=== PATIENT | female | born 1960 | race Caucasian/White ===

== ENCOUNTER 2020-03-26 16:20 | Emergency (ER) | payer OTHER, SELFPAY ==
[2020-03-26 17:08] VITALS: BP 146/86; PULSE 96; RESP 18; TEMP 37.1; O2SAT 98; BMI 31.1
--- NOTE | 2020-03-26 17:15 | XR_ITS ---
EXAMINATION: XR CHEST CLINICAL INFORMATION: Fever, cough COMPARISON: None TECHNIQUE: Frontal view of the chest was obtained. FINDINGS: Surgical clips overlie the lower right lung. Low lung volumes. No convincing evidence for an acute infiltrate. No failure. No effusion is seen. The mediastinal contours are within normal limits. XR/XR chest 1V IMPRESSION: Low lung volumes. No convincing evidence for an acute process
--- NOTE | 2020-03-26 17:34 | ED_ITS ---
HPI - General Adult General Chief complaint: General Medical Stated complaint: covid symptoms Time Seen by Provider: 03/26/20 17:15 Source: patient Mode of arrival: ambulatory Limitations: no limitations History of Present Illness HPI narrative: 59 y/o female presenting with cough, SOB, fatigue for the last 3 days. She lives with her who is an employee at [employer] [place] and positive for COVID-19. She states her SOB is improving. She denies chest pain or difficulty breathing. She has been taking Robitussin with moderate effect. She reports intermittent fevers that improve with Tylenol. No N/V/D or abd pain. MD complaint: COVID symptoms Onset (ago): day(s) (3) Location: chest and lower extremity Radiation: non-radiation Severity: moderate Quality: aching Relieving factors: medication and rest Associated symptoms: cough, fever/chills and headaches Treatments prior to arrival: none Related Data Previous Rx's Medication Instructions Recorded hydrocodone-homatropine [Hycodan 5 ml PO Q6H PRN #60 ml 03/26/20 (with homatropine)] Allergies Allergy/AdvReac Type Severity Reaction Status Date / Time amoxicillin Allergy Anaphylaxis Verified 03/26/20 17:08 Sulfa (Sulfonamide Allergy Shortness Verified 03/26/20 17:08 Antibiotics) of Breath Review of Systems Review of Systems: Constitutional: + Fever, + Chills ENT/Mouth: No sore throat Cardiovascular: No Chest Pain, + SOB, No Orthopnea, No Edema Respiratory: + Cough, No Sputum, No Wheezing, No dyspnea Gastrointestinal: No Nausea, No Vomiting, No Diarrhea, No abdominal Pain Genitourinary: No Dysuria, No Urinary Frequency, No Hematuria Musculoskeletal: No joint pain, + Myalgias Skin: No Skin Lesions, No rash Neuro: + Weakness (mild, generalized), No Numbness, No Dizziness, + Headache Psych: No Anxiety/Panic, No Depression Heme/Lymph: No Bruising, No Lymphadenopathy PMFSH Past Medical History Attestation statement: The following information was validated with the patient. Medical History Diabetic acidosis, type II Social History Social History Advance Directives: No Advance Directives Information Provided: No Physical Exam Vital Signs: Vital Signs: Last Vital Signs Temp 98.8 F 03/26/20 17:08 Pulse 96 03/26/20 17:08 Resp 18 03/26/20 17:08 BP 146/86 H 03/26/20 17:08 Pulse Ox 98 03/26/20 17:08 Body Mass Index 31.1 Appearance: Alert. Oriented X3. No acute distress. Eyes: Pupils equal, round and reactive to light. ENT: Pharynx normal. Neck: Normal inspection. Neck supple. CVS: Normal heart rate and rhythm. Pulses normal. Respiratory: No respiratory distress. Breath sounds normal. Abdomen: Soft and nontender. +BS x4 Skin: Skin warm and dry. Normal skin color. Normal skin turgor. No rashes. Extremities: No lower extremity edema. Negative Gisele's sign. Neuro: Oriented X 3. Non-focal, steady gait. Course Course Course Narrative: 59 y/o female with hx DM presenting with COVID symptoms after exposure to her who is COVID positive. She appears well with normal VS. Lungs are clear. CXR and Resp panel performed. Patient counseled and instructed to come back to the hospital if her SOB worsens or if she develops difficutly breathing or chest pain. Stable for d/c. Will call with the results. Critical Care Time Critical Care Time Critical Care Time: No Discharge Plan Discharge Clinical Impression: COVID-19 Patient Disposition: Home, Self-Care Instructions: COVID-19 (Coronavirus Disease 2019) (ED) Additional Instructions: Given your exposure, you are most likely COVID-19 POSITIVE. We will call you with the results later tonight. Your chest x-ray and oxygen levels were normal. Rest. Drink plenty of fluids. Do not go out in public for the next 14 days. Take over the counter cold/flu medications as needed for your symptoms. Take Tylenol and/or Motrin as needed for fevers and body aches. Follow up with your doctor this week. If you shortness of breath worsens , if you develop difficulty breathing or any other concerning symptom come back to the ER immediately for further evaluation. Prescriptions: New hydrocodone-homatropine [Hycodan (with homatropine)] 5-1.5 mg/5 mL syrup 5 ml PO Q6H PRN (Reason: cough) Qty: 60 RF: 0 Stand Alone Forms: Work/School Release
[2020-03-26 20:14] LABS: Influenza A PCR NEGATIVE (Negative); Influenza B PCR NEGATIVE (Negative); Resp Syncy Virus RNA Qual PCR NEGATIVE (Negative)
[2020-03-26 20:25] LABS: SARS COV2 PCR INHOUSE POSITIVE (Negative)
== END 2020-03-26 18:20 | disposition home or self-care (01) ==
PROVIDERS: Physician Assistant; Emergency Provider Internal Medicine
DX: U07.1 COVID-19 (principal); E11.8 Type 2 diabetes mellitus with unspecified complications
CPT/HCPCS: 0241U; 36415; 71045; 99283

== ENCOUNTER 2023-02-24 15:25 | Outpatient (AMB) | payer BC, SELFPAY ==
--- NOTE | 2023-02-24 15:33 | HO.NEPHOV_ITS ---
HPI HPI Comments History of Present Illness Details I had the pleasure of seeing Annabella in follow-up of her diabetic nephropathy, acute kidney injury, hyperkalemia and chronic kidney disease. She had been on lisinopril. Her blood sugar control has been suboptimal. On 17 of February she had a blood draw which showed hyperkalemia. Her primary care physician at that time had asked her to discontinue lisinopril and prescribed her lokelma which she had been having difficulty getting due to insurance issues. She has not been taking any potassium lowering medications yet. She also had OSCAR at that time. She had taken is SGLT2 inhibitor in the past but had come off it. She denies any dizziness, nausea, vomiting, diarrhea or urinary symptoms. She has no pedal edema. She denies any chest pain, shortness of breath, proximal nocturnal dyspnea, orthopnea. She has not been taking any new medications or any xzon-cat-nitjqdv medications. She tries to maintain good hydration. She avoids nonsteroidal anti-inflammatory use. Her serum creatinine has gone to 1.9 with a serum bicarb of 16 and potassium 6.5. She is concerned about her declining renal functions. [facility] Medical History (Updated 02/26/23 @ 09:24 by Terrence Coelho MD) Hyperkalemia Edema Proteinuria due to type 2 diabetes mellitus Chronic kidney disease Diabetic acidosis, type II Surgical History (Updated 02/24/23 @ 15:50 by Patito Everett MA) History of lumpectomy Family History Mother Diabetes Maternal Grandmother Cancer Diabetes Social History (Updated 02/24/23 @ 15:51 by Patito Everett MA) Alcohol intake: never Patient Tobacco Use Status: Never used Tobacco Vital Signs 02/24/23 15:36 Height 5 ft 1 in Weight 171 lb 4 oz BMI 32.4 BP 140/70 H Blood Pressure Location Lt brachial Position Sitting Pulse 79 Pulse Source Pulse Oximeter Physical Exam Vital Signs: Last Vital Signs Pulse 79 02/24/23 15:36 BP 140/70 H 02/24/23 15:36 BMI result Body Mass Index 32.4 Const General: comfortable and no acute distress Orientation/consciousness: patient oriented x3 HEENT Head: Yes normocephalic Mouth: Normal oral and palatal mucosa present Eyes EOM: EOMs intact bilaterally Neck Neck: Yes supple Resp Auscultation: clear to auscultation bilaterally Cardio Jugular venous distension: no JVD Rate: regular rate GI Palpation (GI): Soft to palpation Auscultation: normal bowel sounds General: Yes no CVA tenderness Back/Spine/Pelvis Back: no CVA tenderness Skin General skin exam: no rashes or lesions noted Neuro General: patient oriented x3 and moves all extremities Extrem General: Yes no pedal edema Assessment & Plan Assessment & Plan (1) Hyperkalemia: Code(s): E87.5 - Hyperkalemia (2) Proteinuria due to type 2 diabetes mellitus: Code(s): E11.29 - Type 2 diabetes mellitus with other diabetic kidney complication; R80.9 - Proteinuria, unspecified (3) Acute kidney injury: Code(s): N17.9 - Acute kidney failure, unspecified (4) CKD stage 3 secondary to diabetes: Code(s): E11.22 - Type 2 diabetes mellitus with diabetic chronic kidney disease; N18.30 - Chronic kidney disease, stage 3 unspecified (5) Metabolic acidosis: Code(s): E87.20 - Acidosis, unspecified (6) Hypertension: Code(s): I10 - Essential (primary) hypertension Qualifiers: Hypertension type: primary hypertension Qualified Code(s): I10 - Essential (primary) hypertension Plan Annabella has chronic kidney disease from diabetic nephropathy. She has signif icant proteinuria. Recently she developed OSCAR likely due to tubular injury. Differential diagnosis will be progression of her renal disease. She has been holding her CARLO-inhibitor for the last week. I asked her not to take it until her hyperkalemia and OSCAR has resolved. I prescribed her sodium bicarbonate by mouth 650 mg twice daily until she sees me in about 10 days. She was also advised to take Kayexalate 30 g stat and 30 g coming week with a follow-up blood work to ensure her serum potassium has normalized, serum bicarb is better and had a OSCAR is improving. I plan to initiate her on SGLT2 I. She may need a renal biopsy which shall be decided in the upcoming visits. She was encouraged to maintain her blood sugar at goal. She avoids nonsteroidal anti-inflammatory medication and should maintain good hydration. I did not make any other medication changes and addressed all her questions and concerns. Time spent retrieving data, patient encounter and recommendation 39 minutes. Follow-up given. Orders: Orders Electrolytes 02/24/23 E11.29 - Type 2 diabetes mellitus with other diabetic kidney complication, E87.5 - Hyperkalemia, N17.9 - Acute kidney failure, unspecified, R80.9 - Proteinuria, unspecified Blood Urea Nitrogen 02/24/23 E11.29 - Type 2 diabetes mellitus with other diabetic kidney complication, E87.5 - Hyperkalemia, N17.9 - Acute kidney failure, unspecified, R80.9 - Proteinuria, unspecified Creatinine 02/24/23 E11.29 - Type 2 diabetes mellitus with other diabetic kidney complication, E87.5 - Hyperkalemia, N17.9 - Acute kidney failure, unspecified, R80.9 - Proteinuria, unspecified Medications: New sodium polystyrene sulf-sorbtl 15-20 gram/60 mL 120 mL PO .once a week 2 weeks 240 mL 0RF hyperkalemia sodium bicarbonate 650 mg PO BID 10 days 20 tabs 0RF Coding Level of Care Code Est Pt Level 4 (07434) Diagnoses Hyperkalemia E87.5 Proteinuria due to type 2 diabetes mellitus E11.29; R80.9 Acute kidney injury N17.9 CKD stage 3 secondary to diabetes E11.22; N18.30 Metabolic acidosis E87.20 Primary hypertension I10 Hypertension type: primary hypertension Results Reviewed Nephrology Results: No Data to Display
[2023-02-24 15:36] VITALS: BP 140/70; PULSE 79; BMI 32.4
== END 2023-02-24 16:15 | disposition home or self-care (01) ==
PROVIDERS: Visit Provider Internal Medicine Nephrology
DX: E87.5 Hyperkalemia (principal); E11.29 Type 2 diabetes mellitus with other diabetic kidney complication; R80.9 Proteinuria, unspecified; N17.9 Acute kidney failure, unspecified; E11.22 Type 2 diabetes mellitus with diabetic chronic kidney disease; N18.30 Chronic kidney disease, stage 3 unspecified; E87.20 Acidosis, unspecified; I10 Essential (primary) hypertension
CPT/HCPCS: 99214

== ENCOUNTER → 2023-02-24 15:25 | Outpatient (BNVA) | payer BC, SELFPAY | PROVIDERS: Visit Provider Internal Medicine Nephrology ==

== ENCOUNTER 2023-03-06 15:41 | Outpatient (AMB) | payer BC, SELFPAY ==
--- NOTE | 2023-03-06 15:45 | HO.NEPHOV ---
HPI HPI Comments History of Present Illness Details I had the pleasure of seeing Annabella by [employer] in follow-up of her diabetic nephropathy, recent acute kidney injury, hyperkalemia and chronic kidney disease. She had been on lisinopril. Her blood sugar control has been suboptimal. On 17 of February she had a blood draw which showed hyperkalemia. Her primary care physician at that time had asked her to discontinue lisinopril and prescribed her lokelma which she had been having difficulty getting due to insurance issues. She also had OSCAR at that time. She had taken is SGLT2 inhibitor in the past but had come off it. She denies any dizziness, nausea, vomiting, diarrhea or urinary symptoms. She has no pedal edema. She denies any chest pain, shortness of breath, proximal nocturnal dyspnea, orthopnea. She has not been taking any new medications or any tdur-oul-oqzhxin medications. She tries to maintain good hydration. She avoids nonsteroidal anti-inflammatory use. Her serum creatinine has gone to 1.9 with a serum bicarb of 16 and potassium 6.5. She was given NaHCO3 and Kionex at the last visit. Her acidosis has resolved and her serum creatinine has improved to 1.7 [facility] Medical History (Updated 03/06/23 @ 16:26 by Terrence Coelho MD) Hyperkalemia Edema Proteinuria due to type 2 diabetes mellitus Chronic kidney disease Diabetic acidosis, type II Surgical History History of lumpectomy Family History Mother Diabetes Maternal Grandmother Cancer Diabetes Social History Alcohol intake: never Patient Tobacco Use Status: Never used Tobacco Vital Signs 03/06/23 15:45 Height 5 ft 1 in Assessment & Plan Assessment & Plan (1) CKD stage 3 secondary to diabetes: Code(s): E11.22 - Type 2 diabetes mellitus with diabetic chronic kidney disease; N18.30 - Chronic kidney disease, stage 3 unspecified (2) Acute kidney injury: Code(s): N17.9 - Acute kidney failure, unspecified (3) Proteinuria due to type 2 diabetes mellitus: Code(s): E11.29 - Type 2 diabetes mellitus with other diabetic kidney complication; R80.9 - Proteinuria, unspecified (4) Hypertension: Code(s): I10 - Essential (primary) hypertension Qualifiers: Hypertension type: primary hypertension Qualified Code(s): I10 - Essential (primary) hypertension (5) Renal tubular acidosis, type 4: Code(s): N25.89 - Other disorders resulting from impaired renal tubular function (6) Hyperkalemia: Code(s): E87.5 - Hyperkalemia [place] has chronic kidney disease from diabetic nephropathy. 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 Recently she developed OSCAR likely due to tubular injury which has resolved. She is also having progression of her renal disease. She should continue to hold her CARLO-inhibitor for now. I prescribed her sodium bicarbonate by mouth 650 mg twice daily at the last visit. She was given Kayexalate 30 g stat at the last visit . Her repeat bicarb is normal and her K has improved to 5.2. I plan to initiate her on SGLT2 I. She may need a renal biopsy which shall be decided in the upcoming visits. She was encouraged to maintain her blood sugar at goal. She avoids nonsteroidal anti-inflammatory medication and should maintain good hydration. I did not make any other medication changes and addressed all her questions and concerns. Follow-up given. Orders: Orders Electrolytes Today E11.22 - Type 2 diabetes mellitus with diabetic chronic kidney disease, E11.29 - Type 2 diabetes mellitus with other diabetic kidney complication, E87.5 - Hyperkalemia, I10 - Essential (primary) hypertension, N17.9 - Acute kidney failure, unspecified, N18.30 - Chronic kidney disease, stage 3 unspecified, N25.89 - Other disorders resulting from impaired renal tubular function, R80.9 - Proteinuria, unspecified Blood Urea Nitrogen Today E11.22 - Type 2 diabetes mellitus with diabetic chronic kidney disease, E11.29 - Type 2 diabetes mellitus with other diabetic kidney complication, E87.5 - Hyperkalemia, I10 - Essential (primary) hypertension, N17.9 - Acute kidney failure, unspecified, N18.30 - Chronic kidney disease, stage 3 unspecified, N25.89 - Other disorders resulting from impaired renal tubular function, R80.9 - Proteinuria, unspecified Creatinine Today E11.22 - Type 2 diabetes mellitus with diabetic chronic kidney disease, E11.29 - Type 2 diabetes mellitus with other diabetic kidney complication, E87.5 - Hyperkalemia, I10 - Essential (primary) hypertension, N17.9 - Acute kidney failure, unspecified, N18.30 - Chronic kidney disease, stage 3 unspecified, N25.89 - Other disorders resulting from impaired renal tubular function, R80.9 - Proteinuria, unspecified Telehealth Telehealth Location of provider rendering services: practice address Location of patient: address on file Patient Identification confirmed using: Name, : Yes Telehealth method: voice only Patient verbally consented to treatment: Yes Patient verbally consented to billing insurance company: Yes Patient informed of any privacy concerns related to visit: Yes Minutes spent on Phone/Video with Pt.: 10 Coding Level of Care Code Tele Est Pt Level 2 (93632) Diagnoses CKD stage 3 secondary to diabetes E11.22; N18.30 Acute kidney injury N17.9 Proteinuria due to type 2 diabetes mellitus E11.29; R80.9 Primary hypertension I10 Hypertension type: primary hypertension Renal tubular acidosis, type 4 N25.89 Hyperkalemia E87.5 Results Reviewed Nephrology Results: No Data to Display
== END 2023-03-06 16:40 | disposition home or self-care (01) ==
PROVIDERS: Visit Provider Internal Medicine Nephrology
DX: E11.22 Type 2 diabetes mellitus with diabetic chronic kidney disease (principal); N18.30 Chronic kidney disease, stage 3 unspecified; N17.9 Acute kidney failure, unspecified; E11.29 Type 2 diabetes mellitus with other diabetic kidney complication; R80.9 Proteinuria, unspecified; I10 Essential (primary) hypertension; N25.89 Other disorders resulting from impaired renal tubular function; E87.5 Hyperkalemia
CPT/HCPCS: 99441

== ENCOUNTER → 2023-03-06 15:41 | Outpatient (BNVA) | payer BC, SELFPAY | PROVIDERS: Visit Provider Internal Medicine Nephrology ==

== ENCOUNTER 2023-04-21 15:42 | Outpatient (AMB) | payer BC, SELFPAY ==
--- NOTE | 2023-04-21 15:47 | HO.NEPHOV ---
HPI HPI Comments History of Present Illness Details I had the pleasure of seeing Annabella in follow-up of he r diabetic nephrop athy, recent acute kidney injury, hy perkalemia and chr onic kidney diseas e. She had been o n lisinopril. Her blood sugar contr ol has been subopt imal. She was pres cribed Jardiance/ Farxiga which were not approved by [facility] insurance. She is off lisinopril . She feels palpi tations . Her BP a lso has been high. She denies any di zziness, nausea, v omiting, diarrhea or urinary symptom s. She has no ped al edema. She den ies any chest pain , shortness of pool ath, proximal noct urnal dyspnea, ort hopnea. She tries to maintain good h ydration. She radha ids nonsteroidal a nti-inflammatory u se. Her serum cre atinine has gone u p to 2.1 [facility] Medical History (Updated 03/06/23 @ 16:26 by Terrence Coelho MD) Hyperkalemia Edema Proteinuria due to type 2 diabetes mellitus Chronic kidney disease Diabetic acidosis, type II Surgical History History of lumpectomy Family History Mother Diabetes Maternal Grandmother Cancer Diabetes Social History Alcohol intake: never Patient Tobacco Use Status: Never used Tobacco Vital Signs 04/21/23 15:48 Height 5 ft 1 in Weight 172 lb 2 oz BMI 32.5 BP 170/80 H Blood Pressure Location Rt brachial Position Sitting Pulse 84 Pulse Source Pulse Oximeter Pulse Oximetry (%) 99 Oxygen Delivery Method Room Air Physical Exam Const General: comfortable and no acute distress Orientation/consciousness: patient oriented x3 HEENT Head: Yes normocephalic Mouth: Normal oral and palatal mucosa present Eyes EOM: EOMs intact bilaterally Neck Neck: Yes supple Resp Auscultation: clear to auscultation bilaterally Cardio Jugular venous distension: no JVD Rate: regular rate GI Palpation (GI): Soft to palpation Auscultation: normal bowel sounds General: Yes no CVA tenderness Back/Spine/Pelvis Back: no CVA tenderness Skin General skin exam: no rashes or lesions noted Neuro General: patient oriented x3 and moves all extremities Extrem General: Yes no pedal edema Assessment & Plan Assessment & Plan (1) Acute kidney injury: Code(s): N17.9 - Acute kidney failure, unspecified (2) CKD stage 3 secondary to diabetes: Code(s): E11.22 - Type 2 diabetes mellitus with diabetic chronic kidney disease; N18.30 - Chronic kidney disease, stage 3 unspecified (3) Proteinuria due to type 2 diabetes mellitus: Code(s): E11.29 - Type 2 diabetes mellitus with other diabetic kidney complication; R80.9 - Proteinuria, unspecified (4) Hyperkalemia: Code(s): E87.5 - Hyperkalemia (5) Hypertension: Code(s): I10 - Essential (primary) hypertension Qualifiers: Hypertension type: primary hypertension Qualified Code(s): I10 - Essential (primary) hypertension (6) Renal tubular acidosis, type 4: Code(s): N25.89 - Other disorders resulting from impaired renal tubular function Plan Annabella has chronic kidney disease from diabetic nephropathy. 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 Recently she developed OSCAR likely due to tubular injury . She is also having progression of her renal disease. She should continue to hold her CARLO-inhibitor for now. I started Kayexalate 30 g once a week . Her repeat bicarb is normal and her K is 5.4. I plan to initiate her on SGLT2 I when her inurance permits. She may need a renal biopsy which shall be decided in the upcoming visits. She was encouraged to maintain her blood sugar at goal. She avoids nonsteroidal anti-inflammatory medication and should maintain good hydration. I did not make any other medication changes and addressed all her questions and concerns. Follow-up given Orders: Orders Creatinine Today E11.22 - Type 2 diabetes mellitus with diabetic chronic kidney disease, E11.29 - Type 2 diabetes mellitus with other diabetic kidney complication, E87.5 - Hyperkalemia, I10 - Essential (primary) hypertension, N18.30 - Chronic kidney disease, stage 3 unspecified, N25.89 - Other disorders resulting from impaired renal tubular function, R80.9 - Proteinuria, unspecified Blood Urea Nitrogen Today E11.22 - Type 2 diabetes mellitus with diabetic chronic kidney disease, E11.29 - Type 2 diabetes mellitus with other diabetic kidney complication, E87.5 - Hyperkalemia, I10 - Essential (primary) hypertension, N18.30 - Chronic kidney disease, stage 3 unspecified, N25.89 - Other disorders resulting from impaired renal tubular function, R80.9 - Proteinuria, unspecified Electrolytes Today E11.22 - Type 2 diabetes mellitus with diabetic chronic kidney disease, E11.29 - Type 2 diabetes mellitus with other diabetic kidney complication, E87.5 - Hyperkalemia, I10 - Essential (primary) hypertension, N18.30 - Chronic kidney disease, stage 3 unspecified, N25.89 - Other disorders resulting from impaired renal tubular function, R80.9 - Proteinuria, unspecified Medications: New sodium polystyrene sulfonate 30 grams orally once a week; 30 days 120 grams 8RF Discontinued sodium polystyrene sulf-sorbtl 15-20 gram/60 mL Discontinued Reason: Doctor's Order 120 mL PO .once a week 2 weeks 240 mL 0RF hyperkalemia Coding Level of Care Code Est Pt Level 4 (58791) Diagnoses Acute kidney injury N17.9 CKD stage 3 secondary to diabetes E11.22; N18.30 Proteinuria due to type 2 diabetes mellitus E11.29; R80.9 Hyperkalemia E87.5 Primary hypertension I10 Hypertension type: primary hypertension Renal tubular acidosis, type 4 N25.89 Results Reviewed Nephrology Results: No Data to Display
[2023-04-21 15:48] VITALS: BP 170/80; PULSE 84; O2SAT 99; BMI 32.5
== END 2023-04-21 16:13 | disposition home or self-care (01) ==
PROVIDERS: Visit Provider Internal Medicine Nephrology
DX: N17.9 Acute kidney failure, unspecified (principal); E11.22 Type 2 diabetes mellitus with diabetic chronic kidney disease; N18.30 Chronic kidney disease, stage 3 unspecified; E11.29 Type 2 diabetes mellitus with other diabetic kidney complication; R80.9 Proteinuria, unspecified; E87.5 Hyperkalemia; I10 Essential (primary) hypertension; N25.89 Other disorders resulting from impaired renal tubular function
CPT/HCPCS: 99214

== ENCOUNTER → 2023-04-21 15:42 | Outpatient (BNVA) | payer BC, SELFPAY | PROVIDERS: Visit Provider Internal Medicine Nephrology ==

== ENCOUNTER 2023-06-30 15:17 | Outpatient (AMB) | payer BC, SELFPAY ==
--- NOTE | 2023-06-30 15:36 | HO.NEPHOV ---
HPI HPI Comments History of Present Illness Details I had the pleasure of seeing Annabella in follow-up of her diabetic nephropathy and chronic kidney disease. Her blood sugar control is better. She had taken is SGLT2 inhibitor in the past but had come off it. She denies any dizziness, nausea, vomiting, diarrhea or urinary symptoms. She has no pedal edema. She denies any chest pain, shortness of breath, proximal nocturnal dyspnea, orthopnea. She has been started on Amlodipine. She tries to maintain good hydration. She avoids nonsteroidal anti-inflammatory use. Her serum creatinine has gone down to 1.7. [facility] Medical History (Updated 03/06/23 @ 16:26 by Terrence Coelho MD) Hyperkalemia Edema Proteinuria due to type 2 diabetes mellitus Chronic kidney disease Diabetic acidosis, type II Surgical History History of lumpectomy Family History Mother Diabetes Maternal Grandmother Cancer Diabetes Social History Alcohol intake: never Patient Tobacco Use Status: Never used Tobacco Vital Signs 06/30/23 15:37 Height 5 ft 1 in Weight 170 lb 2 oz BMI 32.1 BP 130/70 Blood Pressure Location Rt brachial Position Sitting Pulse 93 Pulse Source Pulse Oximeter Pulse Oximetry (%) 99 Oxygen Delivery Method Room Air Physical Exam Vital Signs: Last Vital Signs Pulse 93 06/30/23 15:37 BP 130/70 06/30/23 15:37 Pulse Ox 99 06/30/23 15:37 Oxygen Delivery Method Room Air 06/30/23 15:37 BMI result Body Mass Index 32.1 Const General: comfortable and no acute distress Orientation/consciousness: patient oriented x3 HEENT Head: Yes normocephalic Mouth: Normal oral and palatal mucosa present Eyes EOM: EOMs intact bilaterally Neck Neck: Yes supple Resp Auscultation: clear to auscultation bilaterally Cardio Jugular venous distension: no JVD Rate: regular rate GI Palpation (GI): Soft to palpation Auscultation: normal bowel sounds General: Yes no CVA tenderness Back/Spine/Pelvis Back: no CVA tenderness Skin General skin exam: no rashes or lesions noted Neuro General: patient oriented x3 and moves all extremities Extrem General: Yes no pedal edema Assessment & Plan Assessment & Plan (1) CKD stage 3 secondary to diabetes: Code(s): E11.22 - Type 2 diabetes mellitus with diabetic chronic kidney disease; N18.30 - Chronic kidney disease, stage 3 unspecified (2) Hyperkalemia: Code(s): E87.5 - Hyperkalemia (3) Proteinuria due to type 2 diabetes mellitus: Code(s): E11.29 - Type 2 diabetes mellitus with other diabetic kidney complication; R80.9 - Proteinuria, unspecified (4) Renal tubular acidosis, type 4: Code(s): N25.89 - Other disorders resulting from impaired renal tubular function (5) Hypertension: Code(s): I10 - Essential (primary) hypertension Qualifiers: Hypertension type: primary hypertension Qualified Code(s): I10 - Essential (primary) hypertension (6) Metabolic acidosis: Code(s): E87.20 - Acidosis, unspecified Plan Annabella has chronic kidney disease from diabetic nephropathy. 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 She is also having progression of her renal disease. She should continue to hold her CARLO-inhibitor for now. I started Kayexalate 30 g once a week . Her renal functions are stable. I plan to initiate her on SGLT2 I when her inurance permits. She was encouraged to maintain her blood sugar at goal. She avoids nonsteroidal anti-inflammatory medication and should maintain good hydration. I did not make any other medication changes and addressed all her questions and concerns. Follow-up given Orders: Orders Electrolytes Today E11.22 - Type 2 diabetes mellitus with diabetic chronic kidney disease, E11.29 - Type 2 diabetes mellitus with other diabetic kidney complication, E87.20 - Acidosis, unspecified, E87.5 - Hyperkalemia, I10 - Essential (primary) hypertension, N18.30 - Chronic kidney disease, stage 3 unspecified, N25.89 - Other disorders resulting from impaired renal tubular function, R80.9 - Proteinuria, unspecified Blood Urea Nitrogen Today E11.22 - Type 2 diabetes mellitus with diabetic chronic kidney disease, E11.29 - Type 2 diabetes mellitus with other diabetic kidney complication, E87.20 - Acidosis, unspecified, E87.5 - Hyperkalemia, I10 - Essential (primary) hypertension, N18.30 - Chronic kidney disease, stage 3 unspecified, N25.89 - Other disorders resulting from impaired renal tubular function, R80.9 - Proteinuria, unspecified Creatinine Today E11.22 - Type 2 diabetes mellitus with diabetic chronic kidney disease, E11.29 - Type 2 diabetes mellitus with other diabetic kidney complication, E87.20 - Acidosis, unspecified, E87.5 - Hyperkalemia, I10 - Essential (primary) hypertension, N18.30 - Chronic kidney disease, stage 3 unspecified, N25.89 - Other disorders resulting from impaired renal tubular function, R80.9 - Proteinuria, unspecified Coding Level of Care Code Est Pt Level 4 (72293) Diagnoses CKD stage 3 secondary to diabetes E11.22; N18.30 Hyperkalemia E87.5 Proteinuria due to type 2 diabetes mellitus E11.29; R80.9 Renal tubular acidosis, type 4 N25.89 Primary hypertension I10 Hypertension type: primary hypertension Metabolic acidosis E87.20 Results Reviewed Nephrology Results: No Data to Display
[2023-06-30 15:37] VITALS: BP 130/70; PULSE 93; O2SAT 99; BMI 32.1
== END 2023-06-30 15:55 | disposition home or self-care (01) ==
PROVIDERS: PCP Student in an Organized Health Care Education/Training Program; Visit Provider Internal Medicine Nephrology
DX: E11.22 Type 2 diabetes mellitus with diabetic chronic kidney disease (principal); N18.30 Chronic kidney disease, stage 3 unspecified; E87.5 Hyperkalemia; E11.29 Type 2 diabetes mellitus with other diabetic kidney complication; R80.9 Proteinuria, unspecified; N25.89 Other disorders resulting from impaired renal tubular function; I10 Essential (primary) hypertension; E87.20 Acidosis, unspecified
CPT/HCPCS: 99214

== ENCOUNTER → 2023-06-30 15:17 | Outpatient (BNVA) | payer BC, SELFPAY | PROVIDERS: PCP Student in an Organized Health Care Education/Training Program; Visit Provider Internal Medicine Nephrology ==

== ENCOUNTER 2023-10-27 13:59 | Outpatient (AMB) | payer BC, SELFPAY ==
--- NOTE | 2023-10-27 14:00 | HO.NEPHOV ---
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 Her blood sugar control is better. She had taken is SGLT2 inhibitor in the past but had come off it. She denies any dizziness, nausea, vomiting, diarrhea or urinary symptoms. She has no pedal edema. She denies any chest pain, shortness of breath, proximal nocturnal dyspnea, orthopnea. She has been started on Amlodipine. She tries to maintain good hydration. She avoids nonsteroidal anti-inflammatory use. Her serum creatinine is stable at 1.7. [facility] Medical History (Updated 03/06/23 @ 16:26 by Terrence Coelho MD) Hyperkalemia Edema Proteinuria due to type 2 diabetes mellitus Chronic kidney disease Diabetic acidosis, type II Surgical History History of lumpectomy Family History Mother Diabetes Maternal Grandmother Cancer Diabetes Social History Alcohol intake: never Patient Tobacco Use Status: Never used Tobacco Review of Systems Const All systems reviewed & are unremarkable except as noted in HPI and below Physical Exam Vital Signs: Last Vital Signs Pulse 80 10/27/23 14:04 BP 150/68 H 10/27/23 14:04 Pulse Ox 97 10/27/23 14:04 Oxygen Delivery Method Room Air 10/27/23 14:04 BMI result Body Mass Index 32.1 Const General: comfortable and no acute distress Orientation/consciousness: patient oriented x3 HEENT Head: Yes normocephalic Mouth: Normal oral and palatal mucosa present Eyes EOM: EOMs intact bilaterally Neck Neck: Yes supple Resp Auscultation: clear to auscultation bilaterally Cardio Jugular venous distension: no JVD Rate: regular rate GI Palpation (GI): Soft to palpation Auscultation: normal bowel sounds General: Yes no CVA tenderness Back/Spine/Pelvis Back: no CVA tenderness Skin General skin exam: no rashes or lesions noted Neuro General: patient oriented x3 and moves all extremities Extrem General: Yes no pedal edema Results Reviewed Nephrology Results: No Data to Display Assessment & Plan Assessment & Plan (1) Renal tubular acidosis, type 4: Code(s): N25.89 - Other disorders resulting from impaired renal tubular function Category: Medical (2) Hypertension: Code(s): I10 - Essential (primary) hypertension Category: Medical Qualifiers: Hypertension type: primary hypertension Qualified Code(s): I10 - Essential (primary) hypertension (3) Metabolic acidosis: Code(s): E87.20 - Acidosis, unspecified Category: Medical (4) CKD stage 3 secondary to diabetes: Code(s): E11.22 - Type 2 diabetes mellitus with diabetic chronic kidney disease; N18.30 - Chronic kidney disease, stage 3 unspecified Category: Medical (5) Hyperkalemia: Code(s): E87.5 - Hyperkalemia Category: Medical (6) Proteinuria due to type 2 diabetes mellitus: Code(s): E11.29 - Type 2 diabetes mellitus with other diabetic kidney complication; R80.9 - Proteinuria, unspecified Category: Medical Plan Annabella has chronic kidney disease from diabetic nephropathy. 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 She was having progression of her renal disease, but is stable now. She should continue to hold her CARLO-inhibitor for now. I started Kayexalate 30 g once a week . I plan to initiate her on SGLT2 I when her insurance permits. She was encouraged to maintain her blood sugar at goal. She avoids nonsteroidal anti-inflammatory medication and should maintain good hydration. I did not make any other medication changes and addressed all her questions and concerns. Follow-up given Orders: Orders Creatinine Today E11.22 - Type 2 diabetes mellitus with diabetic chronic kidney disease, E11.29 - Type 2 diabetes mellitus with other diabetic kidney complication, E87.20 - Acidosis, unspecified, E87.5 - Hyperkalemia, I10 - Essential (primary) hypertension, N18.30 - Chronic kidney disease, stage 3 unspecified, N25.89 - Other disorders resulting from impaired renal tubular function, R80.9 - Proteinuria, unspecified Electrolytes Today E11.22 - Type 2 diabetes mellitus with diabetic chronic kidney disease, E11.29 - Type 2 diabetes mellitus with other diabetic kidney complication, E87.20 - Acidosis, unspecified, E87.5 - Hyperkalemia, I10 - Essential (primary) hypertension, N18.30 - Chronic kidney disease, stage 3 unspecified, N25.89 - Other disorders resulting from impaired renal tubular function, R80.9 - Proteinuria, unspecified Blood Urea Nitrogen Today E11.22 - Type 2 diabetes mellitus with diabetic chronic kidney disease, E11.29 - Type 2 diabetes mellitus with other diabetic kidney complication, E87.20 - Acidosis, unspecified, E87.5 - Hyperkalemia, I10 - Essential (primary) hypertension, N18.30 - Chronic kidney disease, stage 3 unspecified, N25.89 - Other disorders resulting from impaired renal tubular function, R80.9 - Proteinuria, unspecified Medications: Refilled sodium polystyrene sulfonate 30 grams orally once a week; 30 days 120 grams 8RF Coding Level of Care Code Est Pt Level 4 (72672) Diagnoses Renal tubular acidosis, type 4 N25.89 Primary hypertension I10 Hypertension type: primary hypertension Metabolic acidosis E87.20 CKD stage 3 secondary to diabetes E11.; N18.30 Hyperkalemia E87.5 Proteinuria due to type 2 diabetes mellitus E11.; R80.9
[2023-10-27 14:04] VITALS: BP 150/68; PULSE 80; O2SAT 97; BMI 32.1
== END 2023-10-27 14:36 | disposition home or self-care (01) ==
PROVIDERS: PCP Student in an Organized Health Care Education/Training Program; Visit Provider Internal Medicine Nephrology
DX: N25.89 Other disorders resulting from impaired renal tubular function (principal); I10 Essential (primary) hypertension; E87.20 Acidosis, unspecified; E11.22 Type 2 diabetes mellitus with diabetic chronic kidney disease; N18.30 Chronic kidney disease, stage 3 unspecified; E87.5 Hyperkalemia; E11.29 Type 2 diabetes mellitus with other diabetic kidney complication; R80.9 Proteinuria, unspecified
CPT/HCPCS: 99214

== ENCOUNTER → 2023-10-27 13:59 | Outpatient (BNVA) | payer BC, SELFPAY | PROVIDERS: PCP Student in an Organized Health Care Education/Training Program; Visit Provider Internal Medicine Nephrology ==

== ENCOUNTER 2024-01-26 13:49 | Outpatient (AMB) | payer BC, SELFPAY ==
--- NOTE | 2024-01-26 13:59 | HO.NEPHOV ---
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 Her blood sugar control is not better. She has been been having right ear infection and is on antibiotics. She had a MRI. She is awaiting ENT appointment. She has taken is SGLT2 inhibitor in the past but had come off it. She denies any dizziness, nausea, vomiting, diarrhea or urinary symptoms. She has no pedal edema. She denies any chest pain, shortness of breath, proximal nocturnal dyspnea, orthopnea. She has been started on Amlodipine. She tries to maintain good hydration. She avoids nonsteroidal anti-inflammatory use. 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 mellitus Chronic kidney disease Diabetic acidosis, type II Surgical History History of lumpectomy Family History Mother Diabetes Maternal Grandmother Cancer Diabetes Social History Alcohol intake: never Patient Tobacco Use Status: Never used Tobacco Review of Systems Const All systems reviewed & are unremarkable except as noted in HPI and below Physical Exam Vital Signs: Last Vital Signs Pulse 86 01/26/24 14:01 BP 140/70 H 01/26/24 14:01 Pulse Ox 96 01/26/24 14:01 Oxygen Delivery Method Room Air 01/26/24 14:01 BMI result Body Mass Index 31.4 Const General: comfortable and no acute distress Orientation/consciousness: patient oriented x3 HEENT Head: Yes normocephalic Mouth: Normal oral and palatal mucosa present Eyes EOM: EOMs intact bilaterally Neck Neck: Yes supple Resp Auscultation: clear to auscultation bilaterally Cardio Jugular venous distension: no JVD Rate: regular rate GI Palpation (GI): Soft to palpation Auscultation: normal bowel sounds General: Yes no CVA tenderness Back/Spine/Pelvis Back: no CVA tenderness Skin General skin exam: no rashes or lesions noted Neuro General: patient oriented x3 and moves all extremities Extrem General: Yes no pedal edema Results Reviewed Nephrology Results: No Data to Display Assessment & Plan Assessment & Plan (1) Renal tubular acidosis, type 4: Code(s): N25.89 - Other disorders resulting from impaired renal tubular function Category: Medical (2) Hypertension: Code(s): I10 - Essential (primary) hypertension Category: Medical Qualifiers: Hypertension type: primary hypertension Qualified Code(s): I10 - Essential (primary) hypertension (3) Metabolic acidosis: Code(s): E87.20 - Acidosis, unspecified Category: Medical (4) CKD stage 3 secondary to diabetes: Code(s): E11.22 - Type 2 diabetes mellitus with diabetic chronic kidney disease; N18.30 - Chronic kidney disease, stage 3 unspecified Category: Medical (5) Proteinuria due to type 2 diabetes mellitus: Code(s): E11.29 - Type 2 diabetes mellitus with other diabetic kidney complication; R80.9 - Proteinuria, unspecified Category: Medical Plan Annabella has chronic kidney disease from diabetic nephropathy. 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 She was having progression of her renal disease. She should continue to hold her CARLO-inhibitor for now. I increased her Kayexalate to 30 g twice a week . I plan to initiate her on SGLT2 I when her insurance permits. She should start taking NaHCO3 650 mg bid as prescribed to help with acidosis which should help with her hyperkalemia. I shall back off on her NaHCO3 to once a day with time. She was encouraged to maintain her blood sugar at goal. She avoids nonsteroidal anti-inflammatory medication and should maintain good hydration. I did not make any other medication changes and addressed all her questions and concerns. Follow-up given Orders: Orders Creatinine 6 Weeks E11.22 - Type 2 diabetes mellitus with diabetic chronic kidney disease, N18.30 - Chronic kidney disease, stage 3 unspecified Blood Urea Nitrogen 6 Weeks E11.22 - Type 2 diabetes mellitus with diabetic chronic kidney disease, N18.30 - Chronic kidney disease, stage 3 unspecified Electrolytes 6 Weeks E11.22 - Type 2 diabetes mellitus with diabetic chronic kidney disease, N18.30 - Chronic kidney disease, stage 3 unspecified Coding Level of Care Code Est Pt Level 4 (87494) Diagnoses Renal tubular acidosis, type 4 N25.89 Primary hypertension I10 Hypertension type: primary hypertension Metabolic acidosis E87.20 CKD stage 3 secondary to diabetes E11.22; N18.30 Proteinuria due to type 2 diabetes mellitus E11.29; R80.9
[2024-01-26 14:01] VITALS: BP 140/70; PULSE 86; O2SAT 96; BMI 31.4
== END 2024-01-26 14:37 | disposition home or self-care (01) ==
PROVIDERS: PCP Student in an Organized Health Care Education/Training Program; Visit Provider Internal Medicine Nephrology
DX: I12.9 Hypertensive chronic kidney disease with stage 1 through stage 4 chronic kidney disease, or unspecified chronic kidney disease (principal); E11.22 Type 2 diabetes mellitus with diabetic chronic kidney disease; N18.30 Chronic kidney disease, stage 3 unspecified; N25.89 Other disorders resulting from impaired renal tubular function; E87.20 Acidosis, unspecified; R80.9 Proteinuria, unspecified
CPT/HCPCS: 99214

== ENCOUNTER 2024-03-29 13:54 | Outpatient (AMB) | payer OTHER, SELFPAY ==
--- OUTSIDE RECORDS SUMMARY | 2024-03-29 13:58 | XMS_ITS | Continuity of Care Document ---
Author Organization [facility], Main Office Address [address] [facility] [address] [place] [address] Care Team Providers Care Clerical Aide Teacher Name Role Phone JOSE YOCASTA Financial Institution Vice President FELICITA RAMIREZ Card Painter [phone] LIBIA WINN Operations Plant Attendant ANUM BOO Hse Coordinator BETITO ZAVALA Primary Care Provider Assessment No assessment recorded. Plan of Treatment Reminders Order Date Submit Date Provider Last Modified By Organization Details Last Modified Time Details Appointments BILLING ONLY 2024 10:45A M MJ SCHEDULE Not available Not available Not available FOLLOW UP 2024 10:00A M BETITO ZAVALA MD Not available Not available Not available Lab None recorded . Referral None recorded . Procedures None recorded . Surgeries None recorded . Imaging None recorded . Medication Orders None recorded . Patient TargetsNo targets recorded. Patient InstructionsNo instructions recorded. Reason for Referral None Reported. 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 [id number] Completed 201203/26/2019 DX 2011 RIGHT BREAST TX WITH LUMPECTO MY, 3 LYMPH NODES REMOVED, THEN RADIATIO N FOLLOWED BY DR GONZALEZ FOR ONCOLOGY Sendy Ulloa PA-C [address], [facility], [address] , [facility] 0 14:25:42 Screenin g for malignan t neoplasm of colon Completed 201210/01/2013 RECORDED 05/29/19 13 1:01PM BY KANE ABURTO MA, ANNOTATI ON/ADDEN DUM MJ Latif, [facility] 6 08:43:35 Screenin g for malignan t neoplasm of colon Completed 201201/25/2016 RECORDED 09/28/19 13 2:32PM BY FISH LUGO , LAB REQ MJ Latif, [facility] 6 08:43:35 Type 2 diabetes mellitus without complica tion [id number] Completed 201201/23/2017 RECORDED 07/31/19 13 2:37PM BY HEIDI STEELE, OFFICE VISIT Irina reilly, [facility] 7 12:03:28 Type 2 diabetes mellitus without complica tion 065644711 Completed 201210/01/2013 IMPRESSI ON: NEEDS TO ADD EXERCISE AND LOWER CARBS; RECORDED 05/29/19 13 2:07PM BY BRIAN RIGGS PA-C, ANNOTATI ON/ADDEN DUM Irina reilly, [facility] 7 12:03:28 Uncontro lled type 2 diabetes mellitus 692423636 Completed 201201/25/2016 STORY: LABS 04/16/12 A1C 10.9.; IMPRESSI ON: VERY POOR CONTROL, RECENT AIC 9,3, NOT TESTING SUGARS, SKIPS MEALS, FEELS SUGARS UPA ND DOWN, PT STATES FELT UNWELL ON HIGHER THAN 500MG OF METFORMI N, PT WILL KEEP MEDS THE SAME, AD DMORE PROTEIN AND GO FOR WEIGHT LO2S BY CUTTNG CARBS, WE WILL SET PT UP WITH DR Elaine, WILL BE A GOOD CANDIDAT E FOR LANTUS.; RECORDED 07/31/19 13 3:18PM BY IRINA Curtis MD, OFFICE VISIT MJ Latif [facility] 6 08:43:40 Blood chemistr y outside referenc e range [id number] Completed 201207/25/2016 RECORDED 08/21/19 13 3:13PM BY IRINA Curtis MD, PHONE ENCOUNTE R Irina Chen-Munira gonzalezeliz null, [facility] 7 11:20:56 Influenz a vaccine needed [id number] 06 Completed 201210/01/2013 RECORDED 05/29/19 13 1:01PM BY KANE ABURTO MA, ANNOTATI ON/ADDEN DUM Sendy Ulloa PA-C [address], [place], [address] , [facility] 6 14:50:07 Adult health examinat ion Completed 201201/25/2016 IMPRESSI ON: PT TO SET UP PAP, MAMMO UTD, GETS EVERY 6 MONTHS; RECORDED 08/16/19 13 11:39AM BY POLY BANDA, HISTORIC AL SUMMARY MJ Latif [facility] 6 08:43:30 Essentia l hyperten cyndi [id number] Completed 201210/01/2013 RECORDED 05/29/19 13 1:02PM BY KANE ABURTO MA, ANNOTATI ON/ADDEN DUM Ann-Marie Gonzalez null, [facility] 0 11:29:25 Laborato ry procedur e performe d [id number] Completed 201301/25/2016 RECORDED 05/24/19 14 2:25PM BY KEAGAN ZEPEDA, LACEY REQ MJ Latif [facility] 6 08:43:25 Disorder of thyroid gland 16107235 Active 2012 WAS ON MED, OFF NOW MJ Latif [facility] 3 11:15:56 Vitamin D deficien cy 17443185 Completed 201210/01/2013 IMPRESSI ON: WAS ON 50,OOO UNITS AND NOW ON DAILY, LEVEL WAS LOW LAST YEAR; RECORDED 05/29/19 13 1:01PM BY KANE ABURTO MA, ANNOTATI ON/ADDEN DUM Sendyzuleika VICENTEC [address] [facility] [address], [place], [address] , [facility] 6 14:50:07 Screenin g for malignan t neoplasm of colon Completed 201210/28/2013 RECORDED 05/29/19 13 1:01PM BY KANE ABURTO MA, ANNOTATI ON/ADDEN DUM [facility] 6 08:43:35 Influenz a vaccine needed [id number] 06 Completed 201210/28/2013 RECORDED 05/29/19 13 1:01PM BY KANE ABURTO MA, RADHA ON/ADDEN DUM Sendy Ulloa PA-C [address] [facility] [address], [place], [address] , [facility] 6 14:50:07 Essentia l hyperten cyndi [id number] Completed 201210/28/2013 RECORDED 05/29/19 13 1:02PM BY KANE ABURTO MA, RADHA ON/ADDEN DUM [facility] 0 11:29:25 Vitamin D deficien cy 35567377 Completed 201210/28/2013 IMPRESSI ON: WAS ON 50,OOO UNITS AND NOW ON DAILY, LEVEL WAS LOW LAST YEAR; RECORDED 05/29/19 13 1:01PM BY KANE ABURTO MA, ANNOTPORTILLO ON/ADDEN DUM Sendy Ulloa PA-C [address] [facility] [address], [place], [address] , [facility] 6 14:50:07 Postmeno pausal bleeding 98560829 Completed 07/25/2016 Irina reilly [facility] 7 11:21:51 Body mass index 30+ - obesity 244398680 Completed 07/25/2016 Irina reilly [facility] 7 11:22:07 Renal disorder due to type 2 diabetes mellitus 297997565 Active 2016 Not Available [facility] 0 14:09:52 Chronic kidney disease stage 1 694760862 Completed 201603/27/2017 Sendy Ulloa PA-C [address], [place], [address] , [facility] 4 09:37:25 Hyperten sive renal disease 86000878 Active 2016 Not Available [facility] 0 14:09:52 Chronic kidney disease stage 2 764051354 Completed 201703/11/2019 Sendy Ulloa PA-C [address], [place], [address] , [facility] 9 10:45:46 Hyperlip idemia 41793957 Completed 201708/04/2022 BETITO ZAVALA MD [address], [place], [address] , [facility] 3 19:48:43 Chronic kidney disease stage 3 due to type 2 diabetes mellitus 72669790038 5 Completed 201703/26/2019 Ann-Marie reilly [facility] 0 16:06:25 Obesity 046820628 Active 2018 MJ Latif, [facility] 3 11:15:56 Chronic kidney disease stage 3 933763141 Completed 201810/23/2020 Sendy Ulloa PA-C [address], [place], [address] , [facility] 1 11:24:48 Microalb uminuria 584515736 Active 2019 Not Available [facility] 0 14:09:52 Noncompl iance with treatmen t 1134779 Active 2019 MJ Latif, [facility] 3 11:15:56 Chronic kidney disease stage 3B 944751984 Active 2020 [facility] 3 12:53:44 Malignan t tumor of breast 653183357 Active 2010 MJ Latif, [facility] 3 12:53:44 Mixed hyperlip idemia 942271186 Active 2022 MJ Latif, [facility] 3 11:15:56 Long-ter m current use of insulin 190914841 Active 2022 [facility] 3 11:15:56 Hyperkal emia 38270397 Active 2022 Justo Medeiros MD [address], [address] , [facility] 3 04:35:12 Notes:Some problems listed i n Documents: #[id number], #[id number], #[id number], #[id number] could not be added to this patient's chart. Please review these documents and add these problems to the patient's chart manually as needed. Problem Notes None recorded. Procedures Surgical History Date Name Laterality Status Provider Name and Address Organization Details Recorded Time 08/28/19 24 Most Recent Mammogram completed Renay Lee [facility] 08/28/2023 11:14:34 05/25/19 24 diabetic retinopathy screening completed Renay Lee [facility] 06/30/2023 08:47:36 08/06/19 23 Diabetic Foot Exam (Monofilament) completed BETITO ZAVALA MD [address], [address], [facility] 08/05/2022 13:30:00 03/20/19 22 Date of Last Pap Smear completed Heidi Steele MA [facility] 04/08/2022 13:03:50 10/24/19 21 Diabetic Foot Exam (Monofilament) completed Mikaela Issa MA [facility] 10/23/2020 10:35:13 10/20/19 21 Diabetic Foot Exam (Monofilament) completed Nanette Tapia MA [facility] 10/19/2020 15:17:02 05/01/19 21 Diabetic Foot Exam (Monofilament) cancelled Mikaela Issa MA [facility] 05/01/2020 11:27:35 02/14/20 20 Mammogram screening completed Patito Banda [facility] 02/17/2020 14:55:16 03/26/19 20 Diabetic Foot Exam (Monofilament) completed Sendy Ulloa PA-C [address] [facility], [place], [address], [facility] 03/26/2019 14:15:41 03/11/20 19 Diabetic Foot Exam (Monofilament) completed Olga Jacob [facility] 03/11/2019 10:24:03 06/05/19 19 Diabetic Foot Exam (Monofilament) completed Sendy QUICK-C [address] [address] [facility], [place], [address], [facility] 06/04/2018 15:02:54 12/27/19 18 Date of Last Colonoscopy completed Patito Banda [facility] 12/28/2017 10:11:50 12/27/19 18 Colonoscopy completed Patito Banda [facility] 12/28/2017 10:11:45 08/22/19 18 Diabetic Foot Exam (Monofilament) completed Jessica Solorzano MA [facility] 08/21/2017 11:01:40 08/05/19 18 Excision of Melanoma completed Halle Piña [facility] 08/18/2017 10:48:25 05/01/19 18 biopsy completed Shyanne hernandez MA [facility] 01/06/2020 08:53:48 03/20/19 16 Endometrial Ablation completed Shyanne hernandez MA [facility] 03/27/2017 13:13:32 03/20/19 15 Ultrasound breast limited completed Shyanne hernandez MA [facility] 03/27/2017 13:06:30 Breast Surgery completed Heidi sandhu MA [facility] 07/20/2015 11:06:21 Lesion destruction completed Heidi Steele MA [facility] 07/31/2017 13:52:53 Imaging Results None recorded. Procedure Notes None recorded. Medical Equipment None Reported. Allergies Allergen ID Allergen Name Allergen Category Reaction Reaction Severity Criticality Documentation Date Start Date Code Code System Note Provider Name and Address Organization Details Recorded Time Substance with sulfonami de structure and antibacte rial mechanism of action (substanc e) medicatio n Not available Not available Not available 06/02/20142012 86186 8003 SNOMED Melissa reilly [facility] 5 14:00:40 60230 amoxicill in medicatio n Not available Not available Not available 04/08/20222021 723 RxNorm MJ Latif [facility] 3 12:52:43 64631 potassium chloride medicatio n edema Not available Not available 04/22/2022 8591 RxNorm Not Available [facility] 3 17:07:33 4546 Medicinal product containin g penicilli n and acting as antibacte rial agent (product) medicatio n Not available Not available Not available 10/01/20132012 69921 05 SNOMED MJ Cárdenas [facility] 8 12:59:53 72235 Trulicity medicatio n nausea Not available Not available 06/23/2023 16308 96 RxNorm Sendy Ulloa PA-C [address] [facility] [address], [place], [address], [facility] 4 12:49:41 Medications Name Sig Start Date Stop Date Status Note LastModified by Organization Details LastModified Time ketoconaz ole 2 % sham shampoo twice a week 01/05 completed Not Available Not Available Not Available peg-3350/ kcl partha /sodium 01/29 completed Not Available Not Available Not Available tobramyci n 0.3 % soln 01/29 completed Not Available Not Available Not Available lisinopri l 20 mg tabs 01/29 completed Not Available Not Available Not Available trulicity 0.75 mg/0.5ml sopn 01/29 completed Not Available Not Available Not Available glipizide er 5 mg tb24 1 po qd 10/08 completed Not Available Not Available Not Available metformin hcl 500 mg tabs 01/29 completed Not Available Not Available Not Available lisinopri l 10 mg tabs 01/29 completed Not Available Not Available Not Available tradjenta 5 mg tabs 01/29 completed Not Available Not Available Not Available atorvasta tin 40 mg tablet TAKE 1 TABLET BY MOUTH EVERY DAY active Not Available Not Available No t Available metformin 500 mg tablet take 1 tablet by mouth once daily 01/05 completed Not Available Not Available Not Available sodium bicarbona te (bulk) powder 1 weekly 10/08 completed Not Available Not Available Not Available Glucagon Emergency Kit 1 mg solution for injection Take 1 mg as needed by injectio n route for 90 days. 2023 active Not Available Not Available Not Avai lable Lasix 40 mg tablet 40 mg by oral route. 03/18 completed Not Available Not Available Not Available glipizide ER 10 mg tablet, extended release 24 hr Take 1 tablet every day by oral route for 30 days. 07/25 completed pt taking 2 qd Not Available Not Available Not Available lisinopri l 20 mg tablet take 1 tablet by mouth once daily 07/31 completed Not Available Not Available Not Available glipizide 10 mg tablet 1 {tbl} by oral route. 11/10 completed Not Available Not Available Not Available SPS (with sorbitol) 30 gram-40 gram/120 mL enema TAKE 120 ML BY MOUTH ONCE A WEEK FOR HYPERKAL EMIA FOR 2 WEEKS 04/14 completed Not Available Not Available Not Available glipizide ER 5 mg tablet, extended release 24 hr TAKE 2 TABLETS BY MOUTH EVERY DAY active Not Available Not Available No t Available amlodipin e 5 mg tablet TAKE 1 TABLET BY MOUTH EVERY DAY active Not Available Not Available No t Available aspirin 81 mg tablet,de layed release Take 1 tablet every day by oral route. 2022 active Not Available Not Available Not Avai lable sodium polystyre ne sulfonate 15 gram/60 mL oral suspensio n Take 15 g every 12 hours by oral route for 2 days. 04/14 completed Not Available Not Available Not Available sodium bicarbona te 650 mg tablet TAKE 1 TABLET BY MOUTH TWICE DAILY active Not Available Not Available No t Available glipizide ER 2.5 mg tablet, extended release 24 hr 1 po qd 08/31 completed Not Available Not Available Not Available lisinopri l 10 mg tablet TAKE 1 TABLET BY MOUTH TWICE DAILY active Not Available Not Available No t Available hydrocodo ne-homatr opine 5 mg-1.5 mg/5 mL oral syrup TAKE 5 ML BY MOUTH EVERY 6 HOURS NEEDED FOR COUGH 10/19 completed Not Available Not Available Not Available lisinopri l 5 mg tablet 1 {tbl} by oral route. 11/10 completed Not Available Not Available Not Available ergocalci ferol (vitamin D2) 1,250 mcg (50,000 unit) capsule Take 1 {capsule } by oral route. 04/14 completed Not Available Not Available Not Available sodium polystyre ne sulfonate oral powder TAKE 30 GRAM BY MOUTH TWICE A WEEK active Not Available Not Available No t Available lisinopri l 2.5 mg tablet Take 1 tablet every day by oral route. 03/11 completed along with 5 mg Not Available Not Available Not Available tamoxifen 20 mg tablet QD active RECORDED 07/31/19 13 2:37PM BY HEIDI STEELE, OFFICE VISIT; Not Available Not Available Not Available glipizide 5 mg tablet TAKE 1 TABLET BY MOUTH EVERY DAY 06/22 completed Not Available Not Available Not Available tobramyci n 0.3 %-dexamet hasone 0.1 % eye drops,mary kay pension SHAKE LIQUID AND INSTILL 1 DROP IN RIGHT EYE FOUR TIMES DAILY 05/12 completed Not Available Not Available Not Available insulin lispro (U-100) 100 unit/mL subcutane ous pen Inject 8 units twice a day by subcutan eous route before meals for 60 days. 2023 active Not Available Not Available Not Avai lable Vitamin D3 25 mcg (1,000 unit) capsule Take 1 capsule every day by oral route. active Not Available Not Available No t Available rosuvasta tin 20 mg tablet TAKE 1 TABLET BY MOUTH EVERY DAY active Not Available Not Available No t Available nitrofura ntoin monohydra te/macroc rystals 100 mg capsule TAKE 1 CAPSULE BY MOUTH EVERY 12 HOURS WITH FOOD FOR 7 DAYS active Not Available Not Available No t Available Aspirin EC 81 mg 1 qd 03/27 completed Not Available Not Available Not Available lisinopri l 1/2 of 10mg qd 06/04 completed Not Available Not Available Not Available Lantus U-100 Insulin 10 unites 04/22 completed Not Available Not Available Not Available cholecalc iferol (vitamin D3) 25 mcg (1,000 unit) tablet Take 1 tablet every day by oral route as directed for 30 days. 01/05 completed Not Available Not Available Not Available Januvia 100 mg tablet TAKE 1 TABLET BY MOUTH EVERY DAY active Not Available Not Available No t Available Janumet 50 mg-500 mg tablet Take 1 tablet every day by oral route. active Not Available Not Available No t Available FreeStyle Lite Meter kit Take by miscell. route for 1 day. 10/19 completed Not Available Not Available Not Available Lantus Solostar U-100 Insulin 100 unit/mL (3 mL) subcutane ous pen ADMINIST ER 30 UNITS UNDER THE SKIN EVERY DAY 05/01 completed Not Available Not Available Not Available ciproflox acin 0.2 % ear drops in a dropperet te INSTILL 0.25 ML TO AFFECTED EAR EVERY 12 HOURS FOR 14 DAYS 02/18 completed Not Available Not Available Not Available Tradjenta 5 mg tablet take 1 tablet by mouth once daily 03/11 completed Not Available Not Available Not Available norethind karley 5 mg tablet Take 1 tablet every 6 hours by oral route as directed for 4 days. 11/01 completed Not Available Not Available Not Available Accu-Chek Saba Plus test strips Take 1 strip 4 times a day by miscell. route for 90 days. 2022 active Not Available Not Available Not Avai lable sitaglipt in phos 50 mg-metfor min ER 500 mg tablet,ex tended rel 24h mp AM active RECORDED 07/31/19 13 2:46PM BY HEIDI STEELE, OFFICE VISIT; Not Available Not Available Not Available Victoza 2-Adrián 0.6 mg/0.1 mL (18 mg/3 mL) subcutane ous pen injector Inject 0.6 mg every day by subcutan eous route for 30 days. 01/24 completed Not Available Not Available Not Available Farxiga 5 mg tablet 5 mg by oral route. 12/11 completed Not Available Not Available Not Available Trulicity 1.5 mg/0.5 mL subcutane ous pen injector INJECT 0.5 MLS UNDER THE SKIN EVERY 7 DAYS IN THE ABDOMEN THIGHS OR OUTER AREA OF UNDER ARM 01/05 completed Not Available Not Available Not Available Trulicity 0.75 mg/0.5 mL subcutane ous pen injector 0.75 mg by sub-q route. 02/03 completed Not Available Not Available Not Available Toujeo SoloStar U-300 Insulin 300 unit/mL (1.5 mL) subcutane ous pen Inject 35 units every day by subcutan eous route for 30 days. 10/24 completed Not Available Not Available Not Available Afluria 0281-4479 (PF) 45 mcg (15 mcg x 3)/0.5 mL IM syringe active Not Available Not Available Not Available Tresiba FlexTouch U-200 insulin 200 unit/mL (3 mL) subcutane ous pen Inject 10 units every day by subcutan eous route in the evening for 30 days. 2023 active NOT TAKING 02/19/24, STILL ON TOUJEO Not Available Not Available Not Available Ozempic 0.25 mg or 0.5 mg (2 mg/1.5 mL) subcutane ous pen injector Inject 0.25 mg every week by subcutan eous route for 6 days. 2022 active has not started as of 11/05/19 23 This [facility] has it in stock Not Available Not Available Not Available Lokelma 5 gram oral powder packet Take by oral route for 10 days. 04/01 completed Not Available Not Available Not Available BD Annette 2nd Gen Pen Needle 32 gauge x 32 USE DAILY FOR INJECTIO NS THIS IS A 90 DAY SUPPLY active Not Available Not Available No t Available Fluarix Quad (PF) 60 mcg (15 mcg x 4)/0.5 mL IM syringe inject 0.5 millilit ers intramus cularly 01/05 completed Not Available Not Available Not Available Flucelvax Quad (PF) 60 mcg (15 mcg x 4)/0.5 mL IM syringe ADM 0.5ML IM UTD 02/27 completed Not Available Not Available Not Available Mounjaro 5 mg/0.5 mL subcutane ous pen injector Inject 5 mg every week by subcutan eous route for 30 days. 2023 active Not Available Not Available Not Avai lable Mounjaro 2.5 mg/0.5 mL subcutane ous pen injector ADMINIST ER 2.5 MG UNDER THE SKIN EVERY WEEK 11/02 completed Not Available Not Available Not Available FreeStyle Baldo 3 Sensor device USE ONE SENSOR EVERY 14 DAY DIRECTED active Not Available Not Available No t Available Ozempic 0.25 mg or 0.5 mg (2 mg/3 mL) subcutane ous pen injector 02/10 completed Not Available Not Available Not Available Vitals None Recorded Social History Question Answer Notes LastModified by Organizat ion Details LastModified Time Tobacco Smoking Status Never Smoker MJ Latif, [facility] 07/20/2015 11:08:43 Do You Have An Advance Directive? No Information not available 03/27/2017 What Is Your Level Of Alcohol Consumption? None [email or web address] Information not available 07/20/2015 Is Blood Transfusion Acceptable In An Emergency? Yes Information not available 07/20/2015 What Is Your Level Of Caffeine Consumption? Occasional [email or web address] Information not available 07/20/2015 How Much Tobacco Do You Chew? None Information not available 07/25/2016 Are You Currently Employed? Yes [email or web address] Information not available 07/20/2015 What Type Of Diet Are You Following? REGULAR [email or web address] Information not available 07/20/2015 Which Illicit Or Recreational Drugs Have You Used? None Information not available 07/25/2016 Do You Or Have You Ever Used E-cigarettes Or Vape? 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 With Others (Mateusz) Information not available 03/27/2017 Do You Take Precautions To Prevent Distracted Driving? Yes [email or web address] Information not available 07/20/2015 How Often Do You Need To Have Someone Help You When You Read Instructions, Pamphlets, Or Other Written Material From Your Doctor Or Pharmacy? Never Information not available 01/06/2020 Have You Served In The ? No Information not available 07/25/2016 Have You Or Anyone In Your Household Had Any Of The Following Symptoms In The Last 14 Days: Sore Throat, Cough, Chills, Body Aches For Unknown Reasons, Shortness Of Breath For Unknown Reasons, Loss Of Smell, Loss Of Taste, Fever At Or Greater Than 100 Degrees Fahrenheit? No Information not available 01/06/2020 Are You Or Anyone In Your Household A Health Care Provider Or Emergency Responder? No Information not available 01/06/2020 To The Best Of Your Knowledge Have You Been In Close Proximity To Any Individual Who Tested Positive For COVID-19? No Information not available 01/06/2020 *AWV ONLY* Are You Presently Prescribed Opioid Medication By PCP Or Specialist? If YES -Provider Assess The Benefit For Other, Non-opioid Pain Therapies Instead, Even If The Patient Does Not Have OUD But Is Possibly At Risk. No Information not available 01/06/2020 Have You Recently Traveled To A COVID-19 High Risk Area Or Gathering In The Last 10 Days? No Information not available 10/19/2020 What Was The Date Of Your Most Recent Tobacco Screening? 11/10/2023 Information not available 11/10/2023 How Many Children Do You Have? 0 [email or web address] Information not available 07/20/2015 Do You Use Protection During Sex? No Information not available 03/27/2017 Seat Belts Used Routinely Yes [email or web address] Information not available 07/20/2015 Are You Sexually Active? Yes Information not available 03/27/2017 Smoke Alarm In Home Yes [email or web address] Information not available 07/20/2015 At What Age Did You Start Smoking Tobacco? 0 Information not available 03/27/2017 Are You Passively Exposed To Smoke? No Information not available 07/25/2016 Do You Or Have You Ever Used Smokeless Tobacco? Never Used Smokeless Tobacco Information not available 01/06/2020 How Much Tobacco Do You Smoke? No Information not available 07/25/2016 Do You Use Any Illicit Or Recreational Drugs? No Information not available 11/10/2023 Do You Use Sunscreen Routinely? Yes [email or web address] Information not available 07/20/2015 How Many Years Have You Smoked Tobacco? 0 Information not available 03/27/2017 Do You Or Have You Ever Used Any Other Forms Of Tobacco Or Nicotine? No Information not available 10/19/2020 Sex: Unknown Functional Status Question Answer Note LastModified by Organizat ion Details LastModified Time Are you able to walk? YESWOREST Information not available 10/19/2020 Are you able to care for yourself? Yes [email or web address] Information not available 07/20/2015 What is your exercise level? Occasional 2-3 times a week rides her stationary bike [email or web address] Information not available 04/08/2022 Mental Status None recorded. Family History Relationship Description Onset Age of this Age Resolved Age Notes LastModified by Organization Details LastModified Time Mother Diabetes mellitus [email or web address] Not available 01/2016 13:40:50 Mother Essential hypertension [email or web address] Not available 09/28/2015 13:40:50 Mother Hypertensive renal failure [email or web address] Not available 01/2016 13:40:50 Notes:No FH of breast or col on cancer Medical History No medical history recorded. Gynecological History Statement/Question Response Date of Last Colonoscopy 12/26/2017 Menses Monthly N Date of Last Pap Smear 03/20/2021 Sexual Problems? N Age at Menarche 7 Current Control Method None Most Recent Mammogram 08/28/2023 Age at First Child 1 LMP Unknown Desired Control Method N/A Obstetrics History GPAL:G 0 P 0 0 0 0 Immunizations Vaccine Type Date Status Note Provider Nam e and Address Organization Details Recorded Time Influenza, split virus, trivalent, preservative 5 completed Patito reilly [facility] 01/14/2020 15:48:48 Influenza, split virus, quadrivalent, preservative 7 completed MJ Latif [facility] 02/10/2023 11:22:48 Influenza, split virus, quadrivalent, PF 9 completed MJ Latif [facility] 02/10/2023 11:22:48 Influenza, MDCK, quadrivalent, PF 0 completed MJ Latif [facility] 02/10/2023 11:22:48 COVID-19, mRNA, LNP-S, PF, 30 mcg/0.3 mL dose 1 completed MJ Latif [facility] 02/10/2023 11:22:48 COVID-19, mRNA, LNP-S, PF, 30 mcg/0.3 mL dose 1 completed MJ Latif [facility] 02/10/2023 11:22:48 pneumococcal polysaccharide PPV23 6 completed MJ Latif [facility] 02/10/2023 11:22:48 Tdap 9 completed MJ Latif [facility] 02/10/2023 11:22:48 Influenza, split virus, quadrivalent, PF 8 completed Heidi Steele MJ melba, [facility] 02/10/2023 11:22:48 COVID-19, mRNA, LNP-S, PF, 30 mcg/0.3 mL dose 2 completed Heidi Steele MJ melba, [facility] 02/10/2023 11:16:21 COVID-19, mRNA, LNP-S, PF, 30 mcg/0.3 mL dose, kassidy-sucrose 2 completed MJ Latif, [facility] 02/10/2023 11:16:21 COVID-19, mRNA, LNP-S, bivalent, PF, 50 mcg/0.5 mL or 25mcg/0.25 mL dose 2 completed MJ Latif, [facility] 02/10/2023 11:16:21 Influenza, split virus, trivalent, PF 7 completed MJ Latif, [facility] 02/10/2023 11:16:21 Influenza, MDCK, quadrivalent, PF 3 completed Heidi Steele MJ melba, [facility] 02/10/2023 11:22:48 Influenza, MDCK, quadrivalent, PF 2 completed MJ Latif, [facility] 02/10/2023 11:22:48 Influenza, split virus, quadrivalent, PF 6 completed MJ Latif, [facility] 02/10/2023 11:22:48 Influenza, split virus, trivalent, PF 4 completed Starla Alberts LPN null, [facility] 02/19/2024 13:45:48 Influenza, split virus, trivalent, preservative 2 [facility] 15:48:49 Tdap 9 completed Patito reilly MA [facility] 01/14/2020 15:48:48 Past Encounters Encounter ID Performer Location Encounter Start Date Encounter Closed Date Diagnosis/Indication Diagnosis SNOMED-CT Code Diagnosis ICD10 Code Diagnosis Note [id number] Patito Cuiilla [facility] [address] [facility] [phone] 02/06/2024 11:57:30 02/06/2024 11:59:32 Health Concerns Section Related Observation LastModified by Organization Detai ls LastModified Time None Recorded Concern Status LastModified by Organization Details LastModified Time None Recorded Payers Encounter Date Sequence Insurance Name Policy Number Policy Wooten Covered Member ID Wooten Member ID Guarantor Name 02/06/2024 1 [employer]: ADVANTAGE BLUE (EPO) [id number] Annabella Ramirez [id number] RA Annabella Ramirez OBGyn Episode No OBEpisode recorded.
--- OUTSIDE RECORDS SUMMARY | 2024-03-29 13:58 | XMS_ITS | Data Portability ---
Author Organization [facility], Main Office Address [address] [facility] [address] [place] [phone] Care Team Providers Care Training Mgr Name Role Phone GARCIAYOCASTA Mechanical Equipment Test Engineer FELICITA RAMIREZ Intelligence Director LIBIA COELHO Truss Builder ANUM BOO Lead Quality Technician MADELINE MESSER Primary Care Provider Assessment Encounter Date Assessment Date Assessment LastModified by Organization Details LastModified Time 10/09/2023 10/09/2023 This service was provided using telemedicine. Patient consented to video & audio visit Patient was located in the [facility]. Provider was located in the office. No other persons participated in the telemedicine visit except for the patient unless otherwise indicated here. {{}} Total time of visit was 28 minutes. [email or web address] Not available 10/09/2023 15:28:46 11/10/2023 11/10/2023 This service was provided using telemedicine. Patient consented to video & audio visit Patient was located in the [facility]. Provider was located in the office. No other persons participated in the telemedicine visit except for the patient unless otherwise indicated here. {{}} Total time of visit was 15 minutes. Not available 11/10/2023 16:17:11 Plan of Treatment Reminders Order Date Submit Date Provider Last Modified By Organization Details Last Modified Time Details Appointments BILLING ONLY 2024 10:45A M MJ SCHEDULE Not available Not available Not available FOLLOW UP 2024 10:00A M MADELINE MESSER MD Not available Not available Not available Lab HbA1c (hemoglob in A1c), blood 2023 024 [facility], [address] , [facility] [address], [place], [address], 01/24/2024 06:09:20 BMP, serum or plasma 2023 024 [facility], [address] , [facility] [address], [place], [address], 01/24/2024 06:09:20 Referral ENT surgery referral - mri brain showed right sided effusion in the mastoid indicativ e of possible mastoidit is. pt asymptoma tic, no symptoms of ear infection . 2023 024 [email or web address] [facility] , [address], [facility] [address], [place], [address], 11/21/2023 11:42:35 Procedures None recorded. Surgeries None recorded. Imaging None recorded. Medication Orders Mounjaro 2.5 mg/0.5 mL subcutane ous pen injector 2023 024 [id number], [address] [place] [address], [id number], 11/03/2023 09:14:53 insulin lispro (U-100) 100 unit/mL subcutane ous pen [email or web address] [place] [address] [id number], [address] [place] [address], [id number], 10/09/2023 15:34:41 ciproflox acin 0.2 % ear drops in a dropperet te 2023 024 [facility] #[id number], [address] [place] [address], [id number], 02/19/2024 13:46:41 Patient TargetsNo targets recorded. Patient Instructions Encounter Date Encounter Id Patient Instructions Last Modified By Organization Details Last Modified Time 10/09/2023 [id number] Medications (OTC, herbal therapies, supplements) reviewed and reconciled with patient and or caregiver, including potential side effects, drug interactions, instructions, and the consequences of not taking medication. Reviewed potential barriers to medication adherence, such as side effects from medication or cost of medication. 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 pt asymptomatic, no symptoms of ear infection. Referring Physician: Madeline Messer, Family Medicine, Encounter Date: 11/10/2023 Results Created Date Observation Date Name Description Value Unit Range Abnormal Flag Note LastModifiedBy Organization Detail LastModifiedTime 01/23/2001/24/2024 BASIC METAB OLIC PANEL (8) glucose 277 mg/dL 70-99 above high normal Not Available [facility] ([facility]) [address] [place], [address], 01/24/2024 06:09:19 01/23/20 24 01/24/2024 BASIC METAB OLIC PANEL (8) BUN 41 mg/dL 8-27 above high normal Not Available [facility] ([facility]) [address] [place], [address], 01/24/2024 06:09:19 01/23/20 24 01/24/2024 BASIC METAB OLIC PANEL (8) creatinine 1.94 mg/dL 0.57-1 .00 above high normal Not Available [facility] ([facility]) [address] [place], [address], 01/24/2024 06:09:19 01/23/20 24 01/24/2024 BASIC METAB OLIC PANEL (8) eGFR 28 mL/mi n/1.7 3 >59 below low normal Not Available [facility] ([facility]) [address] [facility] [place], [address], 01/24/2024 06:09:19 01/23/20 24 01/24/2024 BASIC METAB OLIC PANEL (8) BUN/creatini ne ratio 21 12-28 normal Not Available [facility] ([facility]) [address] [facility] [place], [address], 01/24/2024 06:09:19 01/23/20 24 01/24/2024 BASIC METAB OLIC PANEL (8) sodium 136 mmol/ L 134-14 4 normal Not Available [facility] ([facility]) [address] [facility] [place], [address], 01/24/2024 06:09:19 01/23/20 24 01/24/2024 BASIC METAB OLIC PANEL (8) potassium 5.7 mmol/ L 3.5-5. 2 above high normal Not Available [facility] ([facility]) [address] [facility] [place], [address], 01/24/2024 06:09:19 01/23/20 24 01/24/2024 BASIC METAB OLIC PANEL (8) chloride 104 mmol/ L 96-106 normal Not Available [facility] ([facility]) [address] [facility] [place], [address], 01/24/2024 06:09:19 01/23/20 24 01/24/2024 BASIC METAB OLIC PANEL (8) carbon dioxide, total 18 mmol/ L 20-29 below low normal Not Available [facility] ([facility]) [address] [facility] [place], [address], 01/24/2024 06:09:19 01/23/20 24 01/24/2024 BASIC METAB OLIC PANEL (8) calcium 9.4 mg/dL 8.7-10 .3 normal Not Available [facility] ([facility]) [address] [place], [address], 01/24/2024 06:09:19 01/23/20 24 01/24/2024 HEMOG LOBIN A1C hemoglobin A1C 12.1 % 4.8-5. 6 above high normal Predi abete s: 5.7 - 6.4 Diabe diogo: >6.4 Glyce jyothi contr ol for adult s with diabe diogo: <7.0 Not Available [facility] ([facility]) [address] [facility], [place], [address], 01/24/2024 06:09:20 09/15/19 24 09/15/2023 US, breas t, limit ed PROCED URE: MM Digita l Mammo Unilat Left, US Breast Left Limite d INDICA TION: Vague single view of asymme try in in the left breast at mid depth on screen ing mammog marco perfor med on 08/26/19. COMPAR JAMIE: Prior mammog elin most recent ly dated 08/26/19. TECHNI QUE: Digita l diagno stic 3-D TOMOSY NTHESI S mammog laura consis ting of spot compre ssion cranio caudal and mediol ateral views of the left breast . Comput er-aid ed detect ion (CAD) was utiliz ed in the interp retati on of this study. In additi on, target ed high-r esolut ion ultras ound of left breast limite d. MAMMOG LAURA: DENSIT Y: There are scatte red areas of fibrog landul ar densit y. FINDIN GS: Persis tent superf icial oval asymme try in the lower inner right breast which measur es 0.9 cm. LEFT BREAST ULTRAS OUND SCAN LIMITE D: Real-t bernardo respir ation ultras ound scan perfor med target ed to the lower inner left breast . In the 8:00 axis, 8 cm from the nipple there is an intrad ermal 0.9 x 0.4 x 1.2 cm hypode nse lesion with adjace nt increa sed vascul arity. IMPRES CYNDI: Mammog raphic and sonogr aphic findin gs consis tent with a 1.2 cm intrad ermal hypoec hoic lesion in the 8:00 left breast consis tent with a sebace ous cyst. There is adjace nt increa sed vascul arity concer james for infect ion/in flamma tion. Clinic al correl ation and manage ment is recomm ended. RECOMM ENDATI ON: Clinic al follow -up and manage ment BI-RAD S: 2 (Dorita n) Lay letter mailed to job burdick WSN: [id number] Orderi ng Physic jagjit: Primitivo Head Dictat ed By: Hanh Grimes MD Dictat ed Date/T bernardo: 3:21 pm Review ed By: Hanh Grimes MD Signed By: Hanh Grimes MD Signed Date/T bernardo: 3:21 pm Transc ribed By: RYAN Transc ribed Date/T bernardo: 3:07 pm Job burdick Class: Outpat ient [facility] (Outpt Imaging) [address] [place] [address], [address], 09/16/2023 09:14:34 09/15/19 24 09/15/2023 mm digit al mammo unila t left PROCED URE: MM Digita l Mammo Unilat Left, US Breast Left Limite d INDICA TION: Vague single view of asymme try in in the left breast at mid depth on screen ing mammog marco perfor med on 08/26/19. COMPAR JAMIE: Prior mammog elin most recent ly dated 08/26/19. TECHNI QUE: Digita l diagno stic 3-D TOMOSY NTHESI S mammog laura consis ting of spot compre ssion cranio caudal and mediol ateral views of the left breast . Comput er-aid ed detect ion (CAD) was utiliz ed in the interp retati on of this study. In additi on, target ed high-r esolut ion ultras ound of left breast limite d. MAMMOG LAURA: DENSIT Y: There are scatte red areas of fibrog landul ar densit y. FINDIN GS: Persis tent superf icial oval asymme try in the lower inner right breast which measur es 0.9 cm. LEFT BREAST ULTRAS OUND SCAN LIMITE D: Real-t bernardo respir ation ultras ound scan perfor med target ed to the lower inner left breast . In the 8:00 axis, 8 cm from the nipple there is an intrad ermal 0.9 x 0.4 x 1.2 cm hypode nse lesion with adjace nt increa sed vascul arity. IMPRES CYNDI: Mammog raphic and sonogr aphic findin gs consis tent with a 1.2 cm intrad ermal hypoec hoic lesion in the 8:00 left breast consis tent with a sebace ous cyst. There is adjace nt increa sed vascul arity concer james for infect ion/in flamma tion. Clinic al correl ation and manage ment is recomm ended. RECOMM ENDATI ON: Clinic al follow -up and manage ment BI-RAD S: 2 (Benig n) Lay letter mailed to job burdick WSN: [id number] Orderi ng Physic jagjit: Primitivo Head ie Dictat ed By: Hanh Grimes MD Dictat ed Date/T bernardo: 3:21 pm Review ed By: Hanh Grimes MD Signed By: Hanh Grimes MD Signed Date/T bernardo: 3:21 pm Transc ribed By: RYAN Transc riptio n Date/T bernardo: 3:07 pm Birads : Job burdick Class: Outpat ient [facility] (Outpt Imaging) [address] [place], [address], 09/16/2023 09:14:33 09/19/19 24 09/15/2023 US, martina t, limit ed A D D E N D U M as of: [id number] There are areas in the report . The ephraim burdick report should read as follow s. PROCED URE: MM Digita l Mammo Unilat Left, US Breast Left Limite d INDICA TION: Vague single view of asymme try in in the left breast at mid depth on screen ing mammog marco perfor med on 08/26/19 24. COMPAR JAMIE: Prior mammog elin most recent ly dated 08/26/19 24. TECHNI QUE: Digita l diagno stic 3-D TOMOSY NTHESI S mammog laura consis ting of spot compre ssion cranio caudal and mediol ateral views of the left breast . Comput er-aid ed detect ion (CAD) was utiliz ed in the interp retati on of this study. In additi on, target ed high-r esolut ion ultras ound of left breast limite d. MAMMOG LUARA: DENSIT Y: There are scatte red areas of fibrog landul ar densit y. FINDIN GS: Persis tent superf icial oval asymme try in the lower inner left breast which measur es 0.9 cm. LEFT BREAST ULTRAS OUND SCAN LIMITE D: Real-t bernardo high-r esolut ion ultras ound scan was perfor med target ed to the lower inner left breast . In the 8:00 axis, 8 cm from the nipple there is an intrad ermal 0.9 x 0.4 x 1.2 cm hypode nse lesion with adjace nt increa sed vascul arity. IMPRES CYNDI: Mammog raphic and sonogr aphic findin gs consis tent with a 1.2 cm intrad ermal hypoec hoic lesion in the 8:00 left breast consis tent with a sebace ous cyst. There is adjace nt increa sed vascul arity concer james for infect ion/in flamma tion. Clinic al correl ation and manage ment is recomm ended. RECOMM ENDATI ON: Clinic al follow -up and manage ment BI-RAD S: 2 (Benig n) WSN: [id number] Orderi ng Physic jagjit: Primitivo Head Dictat ed By: Hanh Grimes MD Dictat ed Date/T bernardo: 8:05 am Review ed By: Hanh Grimes MD Signed By: Hanh Grimes MD Signed Date/T bernardo: 8:05 am Transc ribed By: RYAN Transc ribed Date/T bernardo: 8:02 am PROCED URE: MM Digita l Mammo Unilat Left, US Breast Left Limite d INDICA TION: Vague single view of asymme try in in the left breast at mid depth on screen ing mammog marco perfor med on 08/26/19. COMPAR JAMIE: Prior mammog elin most recent ly dated 08/26/19. TECHNI QUE: Digita l diagno stic 3-D TOMOSY NTHESI S mammog laura consis ting of spot compre ssion cranio caudal and mediol ateral views of the left breast . Comput er-aid ed detect ion (CAD) was utiliz ed in the interp retati on of this study. In additi on, target ed high-r esolut ion ultras ound of left breast limite d. MAMMOG LAURA: DENSIT Y: There are scatte red areas of fibrog landul ar densit y. FINDIN GS: Persis tent superf icial oval asymme try in the lower inner right breast which measur es 0.9 cm. LEFT BREAST ULTRAS OUND SCAN LIMITE D: Real-t bernardo respir ation ultras ound scan perfor med target ed to the lower inner left breast . In the 8:00 axis, 8 cm from the nipple there is an intrad ermal 0.9 x 0.4 x 1.2 cm hypode nse lesion with adjace nt increa sed vascul arity. IMPRES CYNDI: Mammog raphic and sonogr aphic findin gs consis tent with a 1.2 cm intrad ermal hypoec hoic lesion in the 8:00 left breast consis tent with a sebace ous cyst. There is adjace nt increa sed vascul arity concer james for infect ion/in flamma tion. Clinic al correl ation and manage ment is recomm ended. RECOMM ENDATI ON: Clinic al follow -up and manage ment BI-RAD S: 2 (Benlula n) Lay letter mailed to job burdick WSN: [id number] Orderi ng Physic jagjit: Primitivo Head ie Dictat ed By: Hanh Grimes MD Dictat ed Date/T bernardo: 3:21 pm Review ed By: Hanh Grimes MD Signed By: Hanh Grimes MD Signed Date/T bernardo: 3:21 pm Transc ribed By: RYAN Transc ribed Date/T bernardo: 3:07 pm Patien t Class: Outpat ient [facility] ([facility]pt Imaging) [address], [place], [address], 09/19/2023 13:08:58 09/19/1909/15/2023 mm digit al mammo unila t left A D D E N D U M as of: [id number] There are areas in the report . The correc t report should read as follow s. PROCED URE: MM Digita l Mammo Unilat Left, US Breast Left Limite d INDICA TION: Vague single view of asymme try in in the left breast at mid depth on screen ing mammog marco perfor med on 08/26/19. COMPAR JAMIE: Prior mammog elin most recent ly dated 08/26/19. TECHNI QUE: Digita l diagno stic 3-D TOMOSY NTHESI S mammog laura consis ting of spot compre ssion cranio caudal and mediol ateral views of the left breast . Comput er-aid ed detect ion (CAD) was utiliz ed in the interp retati on of this study. In additi on, target ed high-r esolut ion ultras ound of left breast limite d. MAMMOG LAURA: DENSIT Y: There are scatte red areas of fibrog landul ar densit y. FINDIN GS: Persis tent superf icial oval asymme try in the lower inner left breast which measur es 0.9 cm. LEFT BREAST ULTRAS OUND SCAN LIMITE D: Real-t bernardo high-r esolut ion ultras ound scan was perfor med target ed to the lower inner left breast . In the 8:00 axis, 8 cm from the nipple there is an intrad ermal 0.9 x 0.4 x 1.2 cm hypode nse lesion with adjace nt increa sed vascul arity. IMPRES CYNDI: Mammog raphic and sonogr aphic findin gs consis tent with a 1.2 cm intrad ermal hypoec hoic lesion in the 8:00 left breast consis tent with a sebace ous cyst. There is adjace nt increa sed vascul arity concer james for infect ion/in flamma tion. Clinic al correl ation and manage ment is recomm ended. RECOMM ENDATI ON: Clinic al follow -up and manage ment BI-RAD S: 2 (Benig n) WSN: [id number] Orderi ng Physic jagjit: Primitivo Head ie Dictat ed By: Hanh Grimes MD Dictat ed Date/T bernardo: 8:05 am Review ed By: Hanh Grimes MD Signed By: Hanh Grimes MD Signed Date/T bernardo: 8:05 am Transc ribed By: CSB Transc riptio n Date/T bernardo: 8:02 am Birads : PROCED URE: MM Digita l Mammo Unilat Left, US Breast Left Limite d INDICA TION: Vague single view of asymme try in in the left breast at mid depth on screen ing mammog marco perfor med on 08/26/19. COMPAR JAMIE: Prior mammog elin most recent ly dated 08/26/19. TECHNI QUE: Digita l diagno stic 3-D TOMOSY NTHESI S mammog laura consis ting of spot compre ssion cranio caudal and mediol ateral views of the left breast . Comput er-aid ed detect ion (CAD) was utiliz ed in the interp retati on of this study. In additi on, target ed high-r esolut ion ultras ound of left breast limite d. MAMMOG LAURA: DENSIT Y: There are scatte red areas of fibrog landul ar densit y. FINDIN GS: Persis tent superf icial oval asymme try in the lower inner right breast which measur es 0.9 cm. LEFT BREAST ULTRAS OUND SCAN LIMITE D: Real-t bernardo respir ation ultras ound scan perfor med target ed to the lower inner left breast . In the 8:00 axis, 8 cm from the nipple there is an intrad ermal 0.9 x 0.4 x 1.2 cm hypode nse lesion with adjace nt increa sed vascul arity. IMPRES CYNDI: Mammog raphic and sonogr aphic findin gs consis tent with a 1.2 cm intrad ermal hypoec hoic lesion in the 8:00 left breast consis tent with a sebace ous cyst. There is adjace nt increa sed vascul arity concer james for infect ion/in flamma tion. Clinic al correl ation and manage ment is recomm ended. RECOMM ENDATI ON: Clinic al follow -up and manage ment BI-RAD S: 2 (Benig n) Lay letter mailed to job burdick WSN: [id number] Orderi ng Physic jagjit: Primitivo Head ie Dictat ed By: Hanh Grimes MD Dictat ed Date/T bernardo: 3:21 pm Review ed By: Hanh Grimes MD Signed By: Hanh Grimes MD Signed Date/T bernardo: 3:21 pm Transc ribed By: RYAN Transc riptio n Date/T bernardo: 3:07 pm Birads : Job burdick Class: Outpat ient [facility] ([facility]) [address] [facility], [place], [address], 09/19/2023 13:08:57 11/06/19 24 11/03/2023 MRI, brain , w/o contr ast No observ ation record ed. [facility] [address] [facility] [address], [place], [address], 2023 15:07:16 Result Notes None recorded. 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 [id number] Completed 201203/26/2019 DX 2010 RIGHT BREAST TX WITH LUMPECTO MY, 3 LYMPH NODES REMOVED, THEN RADIATIO N FOLLOWED BY DR SABILLON FOR ONCOLOGY Sendyzuleika Ulloa PA-C [address] [facility] [address], [place], [address] , [facility] 0 14:25:42 Screenin g for malignan t neoplasm of colon Completed 201210/01/2013 RECORDED 05/29/19 13 1:01PM BY KANE ABURTO MA, ANNOTATI ON/ADDEN DUM MJ Latif, [facility] 6 08:43:35 Screenin g for malignan t neoplasm of colon Completed 201201/25/2016 RECORDED 09/28/19 13 2:32PM BY FISH ULGO , LAB REQ Shazia Steele MA null, [facility] 6 08:43:35 Type 2 diabetes mellitus without complica tion [id number] Completed 201201/23/2017 RECORDED 07/31/19 13 2:37PM BY SHAZIA STEELE, OFFICE VISIT Garrett reilly, [facility] 7 12:03:28 Type 2 diabetes mellitus without complica tion 051629701 Completed 201210/01/2013 IMPRESSI ON: NEEDS TO ADD EXERCISE AND LOWER CARBS; RECORDED 05/29/19 13 2:07PM BY BRIAN RIGGS, JOSELITO, ANNOTATI ON/ADDEN DUM Garrett reilly, [facility] 7 12:03:28 Uncontro lled type 2 diabetes mellitus 779722179 Completed 201201/25/2016 STORY: LABS 04/16/12 A1C 10.9.; [...] FOR LANTUS.; RECORDED 07/31/19 13 3:18PM BY GARRETT Curtis MD, OFFICE VISIT MJ Latif [facility] 6 08:43:40 Blood chemistr y outside referenc e range 198686993 Completed 201207/25/2016 RECORDED 08/21/19 13 3:13PM BY AGRRETT Curtis MD, PHONE ENCOUNTE R Garrett Chen-Munira gonzalezeliz melba [facility] 7 11:20:56 Influenz a vaccine needed [id number] 06 Completed 201210/01/2013 RECORDED 05/29/19 13 1:01PM BY KANE ABURTO MA, ANNOTATI ON/ADDEN DUM Sendy Ulloa PA-C [address] [facility] [address], [place], [address] , [facility] 6 14:50:07 Adult health examinat ion Completed 201201/25/2016 IMPRESSI ON: PT TO SET UP PAP, MAMMO UTD, GETS EVERY 6 MONTHS; RECORDED 08/16/19 13 11:39AM BY POLY BANDA, HISTORIC AL SUMMARY MJ Latif [facility] 6 08:43:30 Essentia l hyperten cyndi [id number] Completed 201210/01/2013 RECORDED 05/29/19 13 1:02PM BY KANE ABURTO MA, ANNOTATI ON/ADDEN DUM Ann-Marie Carlos reilly [facility] 0 11:29:25 Laborato ry procedur e performe d [id number] Completed 201301/25/2016 RECORDED 05/24/19 14 2:25PM BY KEAGAN ZEPEDA, LACEY REQ MJ Latif [facility] 6 08:43:25 Disorder of thyroid gland 01208661 Active 2012 WAS ON MED, OFF NOW MJ Latif [facility] 3 11:15:56 Vitamin D deficien cy 35246567 Completed 201210/01/2013 IMPRESSI ON: WAS ON 50,OOO UNITS AND NOW ON DAILY, LEVEL WAS LOW LAST YEAR; RECORDED 05/29/19 13 1:01PM BY KANE ABURTO MA, ANNOTPORTILLO ON/ADDEN DUM Sendyzuleika Ulloa PA-C [address] [facility] [address], [place], [address] , [facility] 6 14:50:07 Screenin g for malignan t neoplasm of colon Completed 201210/28/2013 RECORDED 05/29/19 13 1:01PM BY KANE ABURTO MA, ANNOTATI ON/ADDEN DUM [facility] 6 08:43:35 Influenz a vaccine needed [id number] 06 Completed 201210/28/2013 RECORDED 05/29/19 13 1:01PM BY KANE ABURTO MA, ANNOTPORTILLO ON/ADDEN DUM Sendy Ulloa PA-C [address] [facility] [address], [place], [address] , [facility] 6 14:50:07 Essentia l hyperten cyndi 66905882 Completed 201210/28/2013 RECORDED 05/29/19 13 1:02PM BY KANE ABURTO MA, ANNOTATI ON/ADDEN DUM Ann-Marie Carlos reilly, [facility] 0 11:29:25 Vitamin D deficien 60633890 Completed 201210/28/2013 IMPRESSI ON: WAS ON 50,OOO UNITS AND NOW ON DAILY, LEVEL WAS LOW LAST YEAR; RECORDED 05/29/19 13 1:01PM BY KANE ABURTO MA, ANNOTATI ON/ADDEN DUM Sendy Ulloa PA-C [address] [facility] [address], [place], [address] , [facility] 6 14:50:07 Postmeno pausal bleeding 41442650 Completed 07/25/2016 Garrett reilly [facility] 7 11:21:51 Body mass index 30+ - obesity 734576546 Completed 07/25/2016 Garrett reilly [facility] 7 11:22:07 Renal disorder due to type 2 diabetes mellitus 187673188 Active 2016 Not Available [facility] 0 14:09:52 Chronic kidney disease stage 1 805716163 Completed 201603/27/2017 Sendy Ulloa PA-C [address], [place], [address] , [facility] 4 09:37:25 Hyperten sive renal disease 16427739 Active 2016 Not Available [facility] 0 14:09:52 Chronic kidney disease stage 2 753163607 Completed 201703/11/2019 Sendy Ulloa PA-C [address], [place], [address] , [facility] 9 10:45:46 Hyperlip idemia 51442650 Completed 201708/04/2022 MADELINE MESSER MD [address], [place], [address] , [facility] 3 19:48:43 Chronic kidney disease stage 3 due to type 2 diabetes mellitus 71804395921 5 Completed 201703/26/2019 Ann-Marie reilly [facility] 0 16:06:25 Obesity 515626545 Active 2018 MJ Latif, [facility] 3 11:15:56 Chronic kidney disease stage 3 889913198 Completed 201810/23/2020 Sendy Ulloa PA-C [address], [place], [address] , [facility] 1 11:24:48 Microalb uminuria 837674495 Active 2019 Not Available [facility] 0 14:09:52 Noncompl iance with treatmen t 1013549 Active 2019 MJ Latif, [facility] 3 11:15:56 Chronic kidney disease stage 3B 513283833 Active 2020 MJ Latif, [facility] 3 12:53:44 Malignan t tumor of breast 008987156 Active 2010 MJ Latif, [facility] 3 12:53:44 Mixed hyperlip idemia 751575387 Active 2022 MJ Latif, [facility] 3 11:15:56 Long-ter m current use of insulin 332153992 Active 2022 MJ Latif, [facility] 3 11:15:56 Hyperkal emia 50225782 Active 2022 Justo Medeiros MD [address] [facility] [address], [place], [address] , [facility] 3 04:35:12 Notes:Some problems listed i n Documents: #[id number], #[id number], #[id number], #[id number] could not be added to this patient's chart. Please review these documents and add these problems to the patient's chart manually as needed. Problem Notes None recorded. Procedures Surgical History Date Name Laterality Status Provider Name and Address Organization Details Recorded Time 08/28/19 24 Most Recent Mammogram completed Renay Lee [facility] 08/28/2023 11:14:34 05/25/19 24 diabetic retinopathy screening completed Renay Lee [facility] 06/30/2023 08:47:36 08/06/19 23 Diabetic Foot Exam (Monofilament) completed MADELINE MESSER MD [address] [facility] [address], [place], [address], [facility] 08/05/2022 13:30:00 01/01/20 22 Date of Last Pap Smear completed Shazia Steele MA [facility] 04/08/2022 13:03:50 10/24/19 21 Diabetic Foot Exam (Monofilament) completed Mikaela Issa MA [facility] 10/23/2020 10:35:13 10/20/19 21 Diabetic Foot Exam (Monofilament) completed Nanette Tapia MA [facility] 10/19/2020 15:17:02 05/01/19 21 Diabetic Foot Exam (Monofilament) cancelled Mikaela Issa MA [facility] 05/01/2020 11:27:35 02/14/20 20 Mammogram screening completed Patito Banda [facility] 02/17/2020 14:55:16 03/26/19 20 Diabetic Foot Exam (Monofilament) completed Sendy QUICK-C [address] [facility] [address] [facility], [place], [address], [facility] 03/26/2019 14:15:41 03/11/20 19 Diabetic Foot Exam (Monofilament) completed Olga Jacob [facility] 03/11/2019 10:24:03 06/05/19 19 Diabetic Foot Exam (Monofilament) completed Sendy Ulloa PA-C [address] [facility] [address] [facility], [place], [address], [facility] 06/04/2018 15:02:54 12/27/19 18 Date of Last Colonoscopy completed Patito Banda [facility] 12/28/2017 10:11:50 12/27/19 18 Colonoscopy completed Patito Banda [facility] 12/28/2017 10:11:45 08/22/19 18 Diabetic Foot Exam (Monofilament) completed Jessica Solorzano MA [facility] 08/21/2017 11:01:40 08/05/19 18 Excision of Melanoma completed Halle Piña [facility] 08/18/2017 10:48:25 05/01/19 18 biopsy completed Shyanne hernandez MA [facility] 01/06/2020 08:53:48 03/20/19 16 Endometrial Ablation completed Shyanne hernandez MA [facility] 03/27/2017 13:13:32 03/20/19 15 Ultrasound breast limited completed Shyanne hernandez MA [facility] 03/27/2017 13:06:30 Breast Surgery completed Shazia sandhu MA [facility] 07/20/2015 11:06:21 Lesion destruction completed Shazia Steele MA [facility] 07/31/2017 13:52:53 Imaging Results Imaging Date Name Status LastModified by Organiz ation Details LastModified Time 09/15/2023 US, breast, limited completed [facility] [address] [place], [address], 09/16/2023 09:14:34 09/15/2023 mm digital mammo unilat left completed [facility] [address] [place], [address], 09/16/2023 09:14:33 09/15/2023 US, breast, limited completed [facility] [address] [place], [address], 09/19/2023 13:08:58 09/15/2023 mm digital mammo unilat left completed [facility] [address] [place], [address], 09/19/2023 13:08:57 11/03/2023 MRI, brain, w/o contrast completed [facility] [address], [address], 2023 15:07:16 Procedure Notes None recorded. Medical Equipment None Reported. Allergies Allergen ID Allergen Name Allergen Category Reaction Reaction Severity Criticality Documentation Date Start Date Code Code System Note Provider Name and Address Organization Details Recorded Time Substance with sulfonami de structure and antibacte rial mechanism of action (substanc e) medicatio n Not available Not available Not available 06/02/20142012 41980 8003 SNOMED Melissa Ankit reilly [facility] 5 14:00:40 83557 amoxicill in medicatio n Not available Not available Not available 04/08/20222021 723 RxNorm MJ Latif [facility] 3 12:52:43 37184 potassium chloride medicatio n edema Not available Not available 04/22/2022 8591 RxNorm Not Available [facility] 3 17:07:33 4546 Medicinal product containin g penicilli n and acting as antibacte rial agent (product) medicatio n Not available Not available Not available 10/01/20132012 30451 05 SNOMED Shyanne MJ Roca [facility] 8 12:59:53 56316 Trulicity medicatio n nausea Not available Not available 06/23/2023 89574 96 RxNorm Sendy Artemio YEE [address] [facility] [address], [facility] [place], [address], [facility] 4 12:49:41 Medications Name Sig Start Date [...] QD active RECORDED 07/31/19 13 2:37PM BY SHAZIA STEELE, OFFICE VISIT; Not Available Not Available [...] AM active RECORDED 07/31/19 13 2:46PM BY SHAZIA STEELE, OFFICE VISIT; Not Available Not Available [...] Not Available Not Available Not Available Afluria 3626-2430 (PF) 45 mcg (15 mcg x 3)/0.5 [...] not started as of 11/05/19 23 This [facility] has it in stock Not Available Not Available Not Available Lokelma 5 gram oral powder packet Take by oral route for 10 days. 04/01 completed Not Available Not Available Not Available BD Annette 2nd Gen Pen Needle 32 gauge x 5/32 USE DAILY FOR INJECTIO NS THIS IS [...] Not Available Not Available Not Available FreeStyle Noe 3 Sensor device USE ONE SENSOR EVERY 14 DAY DIRECTED active Not Available Not Available No t Available Ozempic 0.25 mg or 0.5 mg (2 mg/3 mL) subcutane ous pen injector 02/10 completed Not Available Not Available Not Available Vitals Date Recorded Body height Provider Name an d Address Organization Details Last Updated DateTime 10/09/2023 154.94 cm Shazia Steele MA [facility] 10/09/2023 15:00:29 Date Recorded Body height Body mass index (BMI) Body weight Heart rate Oxygen saturation Oxygen saturation in Arterial blood by Pulse oximetry Body temperature Systolic blood pressure Diastolic blood pressure Provider Name and Address Organization Details Last Updated DateTime 154.94 cm 31.9 kg/m2 58065.1 1 g 80 /min 100 % 100 % 97.4 [degF] 152 mm[Hg] 84 mm[Hg] Trista Vergara MA [facility] 09:16:16 Date Recorded Systolic blood pressure Diastolic blood pressure Provider Name and Address Organization Details Last Updated DateTime 10/27/2023 132 mm[Hg] 74 mm[Hg] MADELINE MESSER MD [address] [facility] [address], [place], [address], [facility] 10/27/2023 09:28:15 Social History Question Answer Notes LastModified by Organizat ion Details LastModified Time Tobacco Smoking Status Never Smoker MJ Latif, [facility] 07/20/2015 11:08:43 Do You Have An Advance Directive? No Information not available 03/27/2017 What Is Your Level Of Alcohol Consumption? None [email or web address] Information not available 07/20/2015 Is Blood Transfusion Acceptable In An Emergency? Yes [email or web address] Information not available 07/20/2015 What Is Your Level Of Caffeine Consumption? Occasional [email or web address] Information not available 07/20/2015 How Much Tobacco Do You Chew? None Information not available 07/25/2016 Are You Currently Employed? Yes [email or web address] Information not available 07/20/2015 What Type Of Diet Are You Following? REGULAR [email or web address] Information not available 07/20/2015 Which Illicit Or Recreational Drugs Have You Used? None Information not available 07/25/2016 Do You Or Have You Ever Used E-cigarettes Or Vape? Never Used Electronic Cigarettes Information not available 01/06/2020 What Is Your Occupation? [employer]ence [employer] Information not available 03/27/2017 Live Alone Or With Others? With Others (Mateusz) Information not available 03/27/2017 Do You Take Precautions To Prevent Distracted Driving? Yes [email or web address] Information not available 07/20/2015 How Often Do [...] 01/06/2020 Have You Recently Traveled To A [place] [address] High Risk Area Or Gathering In The Last 10 Days? No Information not available 10/19/2020 What Was The Date Of Your Most Recent Tobacco Screening? 11/10/2023 Information not available 11/10/2023 How Many Children Do You Have? 0 [email or web address] Information not available 07/20/2015 Do You Use Protection During Sex? No Information not available 03/27/2017 Seat Belts Used Routinely Yes Information not available 07/20/2015 Are You Sexually Active? Yes Information not available 03/27/2017 Smoke Alarm In Home Yes [email or web address] Information not available 07/20/2015 At What Age [...] 11/10/2023 Do You Use Sunscreen Routinely? Yes Information not available 07/20/2015 How Many Years [...] you able to care for yourself? Yes [email or web address] Information not available 07/20/2015 What is your exercise level? Occasional 2-3 times a week rides her stationary bike [email or web address] Information not available 04/08/2022 Mental Status None [...] virus, trivalent, preservative 5 completed Patito reilly [facility] 01/14/2020 15:48:48 Influenza, split virus, quadrivalent, preservative 7 [facility] 11:22:48 Influenza, split virus, quadrivalent, PF 9 completed MJ Latif [facility] 02/10/2023 11:22:48 Influenza, MDCK, quadrivalent, PF 0 completed MJ Latif [facility] 02/10/2023 11:22:48 COVID-19, mRNA, LNP-S, PF, 30 mcg/0.3 mL dose 1 completed MJ Latif [facility] 02/10/2023 11:22:48 COVID-19, mRNA, LNP-S, PF, 30 mcg/0.3 mL dose 1 completed MJ Latif [facility] 02/10/2023 11:22:48 pneumococcal polysaccharide PPV23 6 completed MJ Latif [facility] 02/10/2023 11:22:48 Tdap 9 completed Shazia Malcolm, MA null, [facility] 02/10/2023 11:22:48 Influenza, split virus, quadrivalent, PF 8 completed Shaziaphillip Steele MA null, [facility] 02/10/2023 11:22:48 COVID-19, mRNA, LNP-S, PF, 30 mcg/0.3 mL dose 2 completed Shaziaphillip Steele MA null, [facility] 02/10/2023 11:16:21 COVID-19, mRNA, LNP-S, PF, 30 mcg/0.3 mL dose, kassidy-sucrose 2 completed Shaziaphillip Steele MA null, [facility] 02/10/2023 11:16:21 COVID-19, mRNA, LNP-S, bivalent, PF, 50 mcg/0.5 mL or 25mcg/0.25 mL dose 2 completed Shazia Steele MA null, [facility] 02/10/2023 11:16:21 Influenza, split virus, trivalent, PF 7 completed Shazia Steele MA null, [facility] 02/10/2023 11:16:21 Influenza, MDCK, quadrivalent, PF 3 completed Shazia Steele MA null, [facility] 02/10/2023 11:22:48 Influenza, MDCK, quadrivalent, PF 2 completed Shazia Steele MA null, [facility] 02/10/2023 11:22:48 Influenza, split virus, quadrivalent, PF 6 completed Shazia Steele MA null, [facility] 02/10/2023 11:22:48 Influenza, split virus, trivalent, PF 4 completed Starla Alberts LPN null, [facility] 02/19/2024 13:45:48 Influenza, split virus, trivalent, preservative 2 completed Patito Banda melba, [facility] 01/14/2020 15:48:49 Tdap 9 completed Patito Solo reilly, [facility] 01/14/2020 15:48:48 Past Encounters Encounter ID Performer Location Encounter Start Date Encounter Closed Date Diagnosis/Indication Diagnosis SNOMED-CT Code Diagnosis ICD10 Code Diagnosis Note [id number] [employer] [address] [facility] [facility] [place] [address] 04/16/2012 00:00:00 [id number] [employer] erce [address] [facility] [facility] [place] [address] 05/28/2012 00:00:00 [id number] [employer] erce [address] [facility] [place] [address] 07/30/2012 00:00:00 [id number] [facility] [email or web address] el[employer] Main Office [address] [facility] [place] [address] 07/20/2015 10:51:11 07/20/2015 11:46:38 Adult health examination 545744718 Z00.00 utd on her screening except due for pneumovax due to DM, never had Uncontroll ed type 2 diabetes mellitus 772531096 E11.65 very poorly controlled , followed by but it does not seem like she is making progress, I introduced her to [facility], she will meet with her in a month to discuss DM care, will stay with Dr Elaine for now History of malignant neoplasm of breast 089305907 Z85.[address] Sabillon in 09/02 will be 5 years, is on tamoxifen Administra tion of pneumococcal vaccine 29873468 Z23 Postmenopa usal bleeding 01158795 N95.0 after 4.5 years! is on tamoxifen, pt will set up appt [facility] Dr Tolbert for eval,s he knows this is important. [id number] [place] Main Office [address] [place] [address] 08/31/2015 12:52:30 08/31/2015 14:35:59 Uncontrolled type 2 diabetes mellitus 726275872 E11.65 Restart glucose monitoring TID. Referral to the GI and nutritioni st due to gastropare sis symptoms. Start Victoza at smallest dose as discussed. Increase januvia to 100 mg daily. Continue Glipizide and Metformin the same. If can not tolerate Victoza , will start insulin injections to improved glycemic control. F/u 4 weeks. Body mass index 30+ - obesity 654021273 Z68.30 [id number] Garrett [email or web address] gonzalezeliz Main Office [address] [facility] [address] [facility] [place] [address] 09/28/2015 13:36:31 09/28/2015 14:56:25 Uncontrolled type 2 diabetes mellitus 519105553 E11.65 Continue glucose monitoring TID. Start Victoza at smallest dose as discussed. stop januvia to 100 mg daily. Continue Glipizide and Metformin the same. If can not tolerate Victoza , will start insulin injections to improved glycemic control. F/u 4 weeks with repeat A1c. Body mass index 30+ - obesity 399270675 Z68.30 [id number] Justo Medeiros MD Main Office [address] [facility] [address] [place] [address] 11/02/2015 10:41:40 11/02/2015 11:54:49 Uncontrolled type 2 diabetes mellitus 113120859 E11.65 A1c is improved but not at goal. Pt. disconitnu ed Victoza due to GI upset. Will try weekly Trulicity at small dose 0.75 mg . Time injection with food. Continue Metformin at 500 mg daily and Glipizide ER at 2.5 mg daily. F/u 6 weeks. Continue diabetic portion control. If Trulicity is not tolerated GI torres, Januvia will be restarted at 100 mg daily. [id number] Garrett [email or web address] [place] Main Office [address] [facility] [address] [place] [address] 01/04/2016 09:54:34 01/04/2016 10:39:26 Uncontrolled type 2 diabetes mellitus 618225224 E11.65 restart Trulicity at 0.75 mg weekly. Continue testing glucose 2-3 times daily. Continue Metfromin and switch to Glipizide ER 10 mg daily. F/u 6-8 weeks. [id number] Garrett [place] Main Office [address] [facility] [address] [place] [address] 01/25/2016 09:34:48 01/25/2016 10:20:32 Type 2 diabetes mellitus without complication 642519284 E11.9 doing better with control, needs to add exercise, use rowing machine! followup with Sendy for DM tx end of month ,e for PE in 6 months Essential hypertension 53602121 I10 well controlled continue meds [id number] Garrett [place] Main Office [address] [facility] [address] [place] [address] 02/15/2016 10:42:19 02/15/2016 11:51:10 Uncontrolled type 2 diabetes mellitus 841663322 E11.65 Glucose control is much improved. Pt. tolerates Trulicity well. Will continue at small dose Lower Glipizide ER to 10 mg daily and continue Metformin at 500 mg daily. F/u with repeat A1c in 6 weeks. Goal A1c is under 7%. [id number] Garrett [place] Main Office [address] [facility] [address] [place] [address] 07/25/2016 10:52:56 07/25/2016 11:40:33 Adult health examination 850958341 Z00.00 utd on mammogram and colonoscop y and pap, due for colonscopy next year, at 4 year jono not active, does not like exercise. Type 2 umang betes mellitus without complication 613006525 E11.9 pt thinks she has nausea from the Trulicity, hx of very poor control, last A1C from 02/02 was 8.6, she misses some med doses due to nausea and is overdue to see Sendy, I will arrange for fasting labs today, pt to see Sendy next week and bring in sugars and eat regularly, some low sugars in morning form not eating consistent ly. Personal h istory of primary malignant neoplasm of breast 195885733 Z85.3 mammogram once a year, utd Essential hypertension 42971213 I10 well controlled continue meds Hypercholesterolemia 136 64661 E78.2 check fasting Uncontroll ed type 2 diabetes mellitus 332734834 E11.65 see above Dysfunctio nal uterine bleeding 41070141 N93.8 recent uterine ablation, no bleeding, is considered post menopausal . [id number] Garrett KelleyBenedict eliz Main Office [address] [facility] [address] [place] [address] 11/28/2016 13:12:37 11/28/2016 14:17:41 Body mass index 25-29 - overweight 221301501 Z68.29 Continue working on increasing exercise and improving diet. Renal diso rder due to type 2 diabetes mellitus 431732675 E11.22 Diabetes well controlled with hgbA1c of 6.6 today, though increased from 6.2 on 07/25/16. Please increase checking glucose fingerstic ks to twice a day, and increase compliance to medication s - Metformin 500 mg, Glipizide 5 mg x 3 tablets per day, Trulicity SQ injection once weekly. Contact the office if there are any readings < 70 mg/dL. Continue working to increase exercise and improve diet (low fat, low carb, more consistent with meals). Patient is on lisinopril with stable BP. Chronic ki dney disease stage 1 160236040 N18.1 Pt. is on Lisinopril and has stable glucose and BP. Overweight 321648087 E66 .3 [id number] Garrett KelleyBenedict eliz Main Office [address] [facility] [address] [place] [address] 01/23/2017 11:19:39 01/23/2017 12:09:14 Chronic kidney disease stage 1 244034135 N18.1 see above Renal diso rder due to type 2 diabetes mellitus 548304450 E11.22 see above Skin lesion 52519604 L98 .9 ? wart of left earlobe, new for 3 months, pt to see dermatolog y Hypertensi ve renal disease 13259121 I12.9 well controlled continue meds nd will refer to renal for creatinine slowly elevating (1.3) and 2 family members with renal failure. Discuss with renal if lisinopril still best med for pt and workup to rule out any familial renal disorder. [id number] Justo Medeiros MD Main Office [address] [facility] [address] [place] [address] 03/27/2017 12:55:38 03/27/2017 14:23:59 Renal disorder due to type 2 diabetes mellitus 646012841 E11.22 Diabetes well controlled with hgA1c of 6.6 today, though increased from 6.2 on 07/25/16. Pt advised to increase checking glucose fingerstic ks to twice a day. continue medication s - Metformin 500 mg, Glipizide 5 mg x 3 tablets per day, Trulicity SQ injection once weekly. Contact the office if there are any readings < 70 mg/dL. Advised increase exercise and improve diet healthier diet(low fat, low carb, more consistent with meals).Bp is stable on lisinopril . Chronic ki dney disease stage 2 140895368 N18.2 repeat renal functions and microalbum in. BP is stable on Lisinopril . Body mass index 30+ - obesity 533102624 E66.01 Z68.30 BMI 30.4 encouraged lifestyle modificati on to include diet and exercise at least 45 mins x 3 -4 weekly [id number] Garrett [place] Main Office [address] [facility] [address] [place] [address] 07/31/2017 13:31:16 07/31/2017 14:19:54 Adult health examination 547278777 Z00.00 utd on mammogram and colonoscop y and pap, due for colonscopy next year, at 4 year jono not active, does not like exercise but is walking 4 times a week Chronic ki dney disease stage 2 837627418 N18.2 saw renal, they lowered her lisinopril and BP is well controlled . Personal h istory of primary malignant neoplasm of breast 433641041 Z85.3 mammogram once a year, utd Renal diso rder due to type 2 diabetes mellitus 930769252 E11.22 see above Essential hypertension 63060426 I10 well controlled continue meds Skin lesion 95002062 L98 .9 left earlobe, getting removed end of week [id number] Garrett [place] Main Office [address] [facility] [address] [place] [address] 08/21/2017 10:45:49 08/21/2017 11:57:03 Renal disorder due to type 2 diabetes mellitus 117859220 E11.22 Continue Metfromin and TRulicity. Lower GLipizide ER to 10 mg daily to avoid random hypoglycem ia. Pt. is advised to lower total calories and continue daily exercise by walking at least 30 minutes. F/u in 3 m. Pt. was also encouraged to look into coverage for [employer] system for continuing monitoring . Chronic ki dney disease stage 2 357663620 N18.2 repeat renal functions and microalbum in as requested by renal. BP is stable on Lisinopril . Body mass index 30+ - obesity 634051390 E66.01 Z68.32 encouraged lifestyle modificati on to include diet and exercise at least 45 mins x 3 -4 weekly Hyperlipid emia screening 825106372 Z13.220 Hypoglycemia 573009085 E 16.2 Lower Glipizide ER to 5 mg 2 po qd. If any more hypoglycem ia, will continue lowering to 5 mg daily. [id number] [email or web address] eliz Main Office [address] [facility] [address] [facility] [address] 12/18/2017 13:19:48 12/18/2017 14:12:24 Renal disorder due to type 2 diabetes mellitus 962584496 E11.22 Continue Metfromin 500 mg daily, lower GLipizide ER to 5 mg daily to avoid random hypoglycem ia. Continue Trulicity at 0.75 mcg dose weekly. Start Tradjenta 6 mg daily. Plan on decreasing or eliminatin g sulfontyur ea eventually to prevent hypoglycem ia. F/u 6-8 wks. Needs infl uenza immunization 099065305 Z23 Chronic ki dney disease stage 3 due to type 2 diabetes mellitus 1239484241 05 E11.22 N18.3 F/u with nephrologi st in May. Hypoglycemia 573169956 E 16.2 Lower Glipizide ER to 5 mg 1 po qd. If any more hypoglycem ia, will continue lowering to 2.5 mg daily. Body mass index 30+ - obesity 688520533 E66.01 Z68.33 encouraged lifestyle modificati on to include diet and exercise at least 45 mins x 3 -4 weekly [id number] [employer] eliz Main Office [address] [facility] [address] [facility] [address] 01/29/2018 10:38:20 01/29/2018 11:48:00 Hypertensive renal disease 09491252 I12.9 followed by renal Chronic ki dney disease stage 2 024125643 N18.2 saw renal, they lowered her lisinopril and BP is well controlled . Personal h istory of primary malignant neoplasm of breast 319324976 Z85.3 mammogram once a year, utd Well contr olled type 2 diabetes mellitus 568900958 E11.9 last A1C is 7.2 . continue meds and f/u with sendy [id number] Sendy Ulloa PA-C Main Office [address] [facility] [address] [facility] [place] [address] 06/04/2018 13:53:49 06/04/2018 15:09:33 Chronic kidney disease stage 3 due to type 2 diabetes mellitus [id number] 05 E11.22 N18.3 F/u with nephrologi st in May. Body mass index 25-29 - overweight 847810286 E66.3 Z68.29 Continue working on increasing exercise and improving diet. [id number] Ann-Marie Gonzalez Main Office [address] [facility] [address] [place] [address] 10/08/2018 09:50:07 10/08/2018 10:56:18 Renal disorder due to type 2 diabetes mellitus 211889852 E11.22 A1c is increased due to weight gain and changes in activity and diet. Pt. is encouraged to lose weight. Continue the same meds and testing. F/u 3 m. Chronic ki dney disease stage 2 084954069 N18.2 F/u with renal. Lisinopril was increased to 7.5 mg daily. Body mass index 30+ - obesity 540690713 Z68.31 encouraged lifestyle modificati on to include diet and exercise at least 45 mins x 3 -4 weekly Hyperlipidemia 49251809 E78.00 Administra tion of viral vaccine 84212175 Z23 Obesity 120160075 E66.9 [id number] Sendy Ulloa PA-C Main Office [address] [facility] [address] [place] [address] 03/11/2019 10:15:27 03/11/2019 11:06:18 Renal disorder due to type 2 diabetes mellitus 025237797 E11.22 A1c is a bit above target. Pt. is not tolerating metfromin well. Will d/c it and increase Trulcity to 1.5 mg weekly. If GI side effects occur , pt will be lowered back down and tried on SGLT2 . It's also ideal to lower sulfonylur ea due to renal disease and possible hypoglycem ia. F/u in 2-3 m. Chronic ki dney disease stage 3 845589328 N18.3 continue ACEI. F/u with renal. Hyperlipidemia 48033451 E78.00 Follow low fat diet and repeat labs in 3 m. If LDL is still above 100, will add small dose of statin. [id number] Ann-Marie Gonzalez Main Office [address] [facility] [address] [place] [address] 03/26/2019 13:19:44 03/26/2019 14:18:18 Adult health examination 115447083 Z00.00 Pt. is recommende d to receive shingrix vaccine Chronic ki dney disease stage 3 due to type 2 diabetes mellitus 4655894475 05 E11.22 N18.3 Continue current meds. increase Trulicity to 1.5 mg weekly. F/u with nephrologi st at the end of March. Continue ACEI. F/u with nephrologi st as scheduled. repeat microalbum in. Hyperlipidemia 30742241 E78.00 Follow low fat diet. Lipid panel is within normal limits. Continue to monitor yearly. Hypertensi ve renal disease 11633883 I12.9 continue ACEI. BP is on target. Continue Lisinopril 5 mg PO daily. Obesity 496582582 E66.9 Continue low calorie/lo w carb diet. Increase exercise to 150 minutes per week. Personal h istory of primary malignant neoplasm of breast 904356071 Z85.3 Continue mammograms yearly and yearly S[facility]EM[facility]ER visits. Body mass index 30+ - obesity 163462730 Z68.30 encouraged lifestyle modificati on to include diet and exercise at least 45 mins x 3 -4 weekly [id number] Sendy Ulloa PA-C Telehealt [facility] [address] [place] [address] 01/06/2020 08:04:18 01/07/2020 11:20:28 Renal disorder due to type 2 diabetes mellitus 591306409 E11.22 Extremely high blood sugars. Pt. is unaware , reports working long hours at work, does not test blood sugars , does not take her medication s. We discussed her lab results and pt. is aware blood sugars are dangerousl y elevated. Will restart monitoring . Advised to start lower dose of trulicity at 0.75 mg weekly due to GI upset, glipizide er 5 mg 2 qd. STart Lantus at 15 u daily. Increase hydration . F/u 4 weeks in office . Chronic ki dney disease stage 3 341391990 N18.30 continue acei. f/u with renal. Hyperlipidemia 94641993 E78.00 Follow low fat diet. start atorvastat in 40 mg. Uncontroll ed type 2 diabetes mellitus 557540868 E11.65 Noncomplia nce with treatment 9787999 Z91.19 [id number] Ann-Marie Gonzalez Main Office [address] [facility] [address] [place] [address] 02/28/2020 13:39:51 02/28/2020 15:03:32 Renal disorder due to type 2 diabetes mellitus 040216423 E11.22 Uncontroll ed type II DM with CKD stg 3. Pt. did not start Lantus. Advised to start at 10 u and increase in 1 week to 15 if am fasting is not under 100. Continue all other antidiabet ics. F/u 6 weeks. Repeat BMP. Chronic ki dney disease stage 3 185260283 N18.30 continue acei. f/u with renal. Hypertensi ve renal disease 03414696 I12.9 stable control. [id number] Ann-Marie Gonzalez Main Office [address] [facility] [address] [place] [address] 10/19/2020 14:58:45 10/19/2020 16:09:34 Adult health examination 648015998 Z00.00 Pt. is recommende d to receive shingrix vaccine, had covid vaccine, tdap up to date. Pt sees dentist and eye doctor. She needs to see car carder for pap and breast exam. Colonoscop y 2017 due 2022 Chronic ki dney disease stage 3 due to type 2 diabetes mellitus 7067970386 05 E11.22 Pt under care of , had eye exam 06/07, ? sees nephrologi st Had proteinuri a and elevated hgba1c of 13.5 last visit. Will recheck labs today as visit with is virtual. Given results, needs to discuss insulin with this week. Hypertensi ve renal disease 90918880 I12.9 continue ACEI. BP is on target. Continue Lisinopril 5 mg BID PO daily. Hyperlipidemia 61548055 E78.00 Follow low fat diet. Lipids: LDL 147 has diabetes. Will restart now every other day Body mass index 30+ - obesity 901146324 Z68.30 encouraged lifestyle modificati on to include diet and exercise at least 45 mins x 3 -4 weekly Personal h istory of primary malignant neoplasm of breast 107472159 Z85.3 Continue mammograms yearly and yearly SAFEMAKER visits., breast exam normal Screening for malignant neoplasm of breast 909356155 Z12.39 Screening for malignant neoplasm of cervix 353743545 Z12.4 Varicella vaccination 68 036366 Z23 Chronic ki dney disease stage 3 804304954 N18.32 Obesity 384629735 E66.9 [id number] Sendy Ulloa PA-C Main Office [address] [facility] [address] [facility] [place] [address] 10/23/2020 09:03:22 10/23/2020 11:34:13 Renal disorder due to type 2 diabetes mellitus 378466591 E11.22 Uncontroll ed type II DM with CKD stg 3b and renal disease progressio n. Pt. could not tolerate trulicity at higher than smallest dose. Glucose is still high. We will reinitiate Lantus at 15 u daily , continue trulicity and glipizide ER and have her back in 4 weeks in office with glucose log. Repeat A1c as well prior to visit. Chronic ki dney disease stage 3B 758275533 N18.32 F/u with Dr. Coelho as scheduled. [id number] Garrett wellington Main Office [address] [facility] [address] [facility] [place] [address] 04/08/2022 12:47:07 04/08/2022 13:33:39 Chronic kidney disease stage 3B 970493241 N18.32 Hyperlipidemia 50202755 E78.00 Hypertensi ve renal disease 92133880 I12.9 followed by renal, recent treatment with diuretics Personal h istory of primary malignant neoplasm of breast 212653138 Z85.3 mammogram once a year, utd Adult heal th examination 301984986 Z00.00 utd on mammogram as per pt due for colonscopy at end of 2022 at 4 year jono not active, does not like exercise but is walking 4 times a week Renal diso rder due to type 2 diabetes mellitus 770491164 E11.22 followup with renal [id number] Sendy Ulloa PA-C Main Office [address] [facility] [address] [place] [address] 04/22/2022 09:30:24 04/22/2022 10:34:44 Chronic kidney disease stage 3B 967558578 N18.32 F/u with Dr. Coelho as scheduled. Hypertensi ve renal disease 58334699 I12.9 f/u with renal ,lisinopri l was just increased by Meliton HAMMONDS. Pt. will continue home monitoring . Renal diso rder due to type 2 diabetes mellitus 176005253 E11.29 Uncontroll ed type II DM with CKD stg 3b and renal disease progressio n. Pt. could not tolerate trulicity at higher than smallest dose. Glucose is still high. We will reinitiate Lantus at 15 u daily , continue trulicity and glipizide ER and have her back in 4 weeks in office with glucose log. Repeat A1c as well prior to visit. Mixed hyperlipidemia 267 186314 E78.2 Begin taking rosuvastat in 20 mg and repeat fasting lipids in 6 weeks. 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 Refer for same day urgent ophthalmol ogryan carr. Consider brain MRA or CT. [id number] Ann-Marie Gonzalez Main Office [address] [facility] [address] [place] [address] 06/17/2022 10:50:21 06/17/2022 11:38:59 Renal disorder due to type 2 diabetes mellitus 606742823 E11.22 Uncontroll ed type II DM with CKD stg 3b and renal disease progressio n. Pt. could not tolerate trulicity. Does not take basal insulin , but takes lispro 5 u BID. Recommend to start using CGM with Noe 3 , pt. agreed if insurance covers. Will begin taking Tresiba at 30 u daily , increase lispro to 12 u BID. Avoid excess carbs. F/y with log in 2 weeks. Chronic ki dney disease stage 3B 593880466 N18.32 Pt. is on Lisinopril and has stable glucose and BP. [id number] Sendy Ulloa PA-C Main Office [address] [facility] [address] [place] [address] 07/22/2022 12:47:40 07/22/2022 13:51:56 Renal disorder due to type 2 diabetes mellitus 653672755 E11.22 Uncontroll ed type II DM with CKD stg 3b and renal disease progressio n. Pt. could not tolerate trulicity. WE will try Ozempic smallest dose for now 0.25 mg weekly , f/u 6 weeks. Continue Toujeo 30-35 u daily and lispro 12 u TID. F/u 6 weeks. PT. has Noe CGM and will start using it after today's visit. Chronic ki dney disease stage 3B 018799167 N18.32 Pt. is on Lisinopril and has stable glucose and BP. Long-term current use of insulin 401418289 Z79.4 [id number] MADELINE MESSER MD Main Office [address] [address] [place] [address] 08/05/2022 12:49:11 08/05/2022 13:34:15 Hypertensive renal disease 83363618 I12.9 - BP today 125/76- c/w lisinopril 20mg QD, will not change regimen as BP is good today Pt is counselled on:-Dietar y Approaches to Stop Hypertensi on (DASH) is an eating plan rich in fruits, vegetables , whole grains, fish, poultry, nuts, legumes, and low-fat dairy. These foods are high in macias nutrients such as potassium, magnesium, calcium, fiber, and protein.-A dvised continued adherence to medication s and low salt diet - extensive counsellin g done regarding dietary habits.-En couraged regular aerobic exercise 30 min for 4-5 x week.-BP monitoring at home advised to bring log at every visit-Side -effects of high BP can cause Stroke, Heart attack and even d/w pt-D/w pt when to call 911 or reach out to Health care provider:> Think you are having a reaction to a medicine you are taking.>Milligan ve headaches that keep coming back (recurring ).>Feel dizzy.>Hav e swelling in your ankles.>Milligan ve trouble with your vision. Chronic ki dney disease stage 3B 960574878 N18.32 - creatine is 1.4 and GFR is 42- pt was last following with renal regularly Mixed hyperlipidemia 267 471682 E78.2 - at goal- currently on ASA and rosuvastat in 20mg QD- most recent lipid panel done on 06/09: cholestero l-115, triglyceri naveed-133, HDL-48, LDL-40 Pt counselled on:- Eat a heart-heal thy diet- Choose healthy fats. Avoid saturated fats that are found primarily in red meat, louie, sausage, and full-fat dairy products. Advised to choose lean proteins like chicken, turkey, and fish when possible. Switch to low-fat or fat-free dairy. And use monounsatu rated fats like olive and canola oil for cooking.- Cut out the trans fats. Trans fats are found in fried food and processed foods, like cookies, crackers, and other snacks.- Eat more omega-3s. Counseled on eating more fish, including salmon, mackerel, bedoya ,nuts and seeds, like walnuts and flax seeds.- Increase your fiber intake. By eating more oats, brain, fruits, beans, and vegetables , can lower your LDL cholestero l levels.- Eat more fruits and veggies. Hyperkalemia 01291242 E8 7.5 - on most recent CMP 06/09 it was noted that K+ was higher than usual at 5.7- EKG performed: NSR no hyperkalem ic changes noted- repeat CMP ordered to check levels, if still elevated will send pt kaycelate Renal diso rder due to type 2 diabetes mellitus 942196571 E11.21 - resent to pharmacy- performed diabetic foot exam on 08/05 Multiple joint pain 3567 8005 M25.50 - pt complainin g of joint pain: shoulders, back and knees- will check inflammato ry markers with ESR and CRP- will also ensure no underlying rheumatic disorders [id number] MADELINE MESSER MD Main Office [address] [facility] [address] [facility] [place] [address] 11/04/2022 10:32:39 11/04/2022 11:02:52 Hypertensive renal disease 32156333 I12.9 - at goal- BP today 125/74- c/w lisinopril 20mg QD Pt is counselled on:-Dietar y Approaches to Stop Hypertensi on (DASH) is an eating plan rich in fruits, vegetables , whole grains, fish, poultry, nuts, legumes, and low-fat dairy. These foods are high in macias nutrients such as potassium, magnesium, calcium, fiber, and protein.-A dvised continued adherence to medication s and low salt diet - extensive counsellin g done regarding dietary habits.-En couraged regular aerobic exercise 30 min for 4-5 x week.-BP monitoring at home advised to bring log at every visit-Side -effects of high BP can cause Stroke, Heart attack and even d/w pt-D/w pt when to call 911 or reach out to Health care provider:> Think you are having a reaction to a medicine you are taking.>Milligan ve headaches that keep coming back (recurring ).>Feel dizzy.>Hav e swelling in your ankles.>Milligan ve trouble with your vision. Chronic ki dney disease stage 3B 980737267 N18.32 - creatine is 1.4 and GFR is 42- pt was last following with renal regularly, will see next week Hyperkalemia 42580719 E8 7.5 - most recent potassium levels was 6.3 and on 5.9 on repeat- pt was given treatment (sodium polystyren e)- ordered repeat check for today to ensure WNL or reduced- pt may need to be placed on [facility] [id number] Sendy Ulloa PA-C Main Office [address] [place] [address] 01/24/2023 09:34:55 01/24/2023 09:48:37 [id number] MADELINE MESSER MD Main Office [address] [place] [address] 02/10/2023 11:08:08 02/10/2023 11:59:36 Hypertensive renal disease 74311348 I12.9 - BP elevated today as patient did not take her medication - BP today 144/84- will c/w lisinopril 20mg QD as patient did not take her medication today and usually under good control with this regimen Pt is counselled on:-Dietar y Approaches to Stop Hypertensi on (DASH) is an eating plan rich in fruits, vegetables , whole grains, fish, poultry, nuts, legumes, and low-fat dairy. These foods are high in macias nutrients such as potassium, magnesium, calcium, fiber, and protein.-A dvised continued adherence to medication s and low salt diet - extensive counsellin g done regarding dietary habits.-En couraged regular aerobic exercise 30 min for 4-5 x week.-BP monitoring at home advised to bring log at every visit-Side -effects of high BP can cause Stroke, Heart attack and even d/w pt-D/w pt when to call 911 or reach out to Health care provider:> Think you are having a reaction to a medicine you are taking.>Milligan ve headaches that keep coming back (recurring ).>Feel dizzy.>Hav e swelling in your ankles.>Milligan ve trouble with your vision. Chronic ki dney disease stage 3B 704703537 N18.32 - creatine is 1.7 and GFR is 33- pt was last following with renal regularly, was seen on 11/22/22> nephrology wanted to start patient on farxiga however medication denied by insurance (per patient)- ordered repeat bmp to [facility] on potassium and kidney function Hyperkalemia 78628967 E8 7.5 - most recent potassium levels was 5.5- pt may need to be placed on lokelma Long-term current use of insulin 197114725 Z79.4 Renal diso rder due to type 2 diabetes mellitus 097416535 E11.21 - worsening, HbA1c today is 14.4 (jump from 11.6)- pt has been getting episodes of hypoglycem ia therefore do not want to change insulin regimen at this time: c/w insulin lispro 12 units TID and toujeo 30 units- c/w glipizide 2.5mg- pt has been able to get access to the ozempic therefore started patient on Januvia> please note jardiance and farxiga not covered by insurance> pt patient cannot tolerate will start patient back on Trulicity as patient had good results at low dosage> PT ADVISED TO HAVE REPEAT BLOOD WORK BEFORE TAKING MEDICATION TO CHECK ON GFR- performed diabetic foot exam on 08/05- pt had seen on ophthalmol ogist this year for eye exam- pt does have CGM machine however has a hard time placing it, put back on patient today at visit and educated her on how to do it (this is the second time this was done)- RTC in 4 week for follow-up with [id number] Patito Banda Main Office [address] [address] [place] [address] 02/21/2023 10:03:18 02/21/2023 10:07:42 [id number] Sendy Ulloa PA-C Main Office [address] [place] [address] [place] [address] 04/14/2023 09:55:47 04/14/2023 10:41:16 Renal disorder due to type 2 diabetes mellitus 679097892 E11.22 Uncontroll ed type II DM with CKD stg 3b and renal disease progressio n. Pt. could not tolerate trulicity. WE will try Mounjaro, Ozempic was previously denied by [employer]. smallest dose for now 2.5 mg weekly time 4 weeks , then 5 mg weekly. In the meantime increase lantus to 40 u and lispro t 18 u premeal. Increase glipizide to 5 mg full tab daily. f/u 6 weeks. Remote uploads will be set up for monthly. Pt. is advised to increased fluids and lower carbs. Chronic ki dney disease stage 3B 962736181 N18.32 continue acei. jardiance was not approved for use by the insurance. F/u with renal. [id number] Patito Banda Main Office [address] [address] [place] [address] 04/17/2023 09:03:30 04/17/2023 09:07:03 [id number] MADELINE MESSER MD Main Office [address] [address] [place] [address] 05/12/2023 10:35:20 05/12/2023 11:00:21 Hypertensive renal disease 68511656 I12.9 - BP elevated today as patient is not currently on any medication s- BP today 156/74- was previously on lisinopril but medication stopped by nephrologi st due to hyperkalem ia and renal tubular acidosis- pt started on amlodipine 5mg- RTC in 3 months Pt is counselled on:-Dietar y Approaches to Stop Hypertensi on (DASH) is an eating plan rich in fruits, vegetables , whole grains, fish, poultry, nuts, legumes, and low-fat dairy. These foods are high in macias nutrients such as potassium, magnesium, calcium, fiber, and protein.-A dvised continued adherence to medication s and low salt diet - extensive counsellin g done regarding dietary habits.-En couraged regular aerobic exercise 30 min for 4-5 x week.-BP monitoring at home advised to bring log at every visit-Side -effects of high BP can cause Stroke, Heart attack and even d/w pt-D/w pt when to call 911 or reach out to Health care provider:> Think you are having a reaction to a medicine you are taking.>Milligan ve headaches that keep coming back (recurring ).>Feel dizzy.>Hav e swelling in your ankles.>Milligan ve trouble with your vision. 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- lisinopril is currently on hold- pt continues to follow with renal- taking sodium bicard 650mg weekly as well -> given by nephrology - will need a renal biopsy [id number] Sendy Ulloa PA-C Main Office [address] [address] [place] [address] 05/19/2023 08:32:09 05/19/2023 08:36:27 [id number] Sendy Ulloa PA-C Main Office [address] [address] [place] [address] 06/19/2023 08:31:01 06/19/2023 08:34:35 [id number] Sendy Ulloa PA-C Main Office [address] [address] [place] [address] 06/23/2023 09:16:08 06/23/2023 09:58:02 Chronic kidney disease stage 3B 244982523 N18.32 continue acei. jardiance was not approved for use by the insurance. F/u with renal. Renal diso rder due to type 2 diabetes mellitus 144431146 E11.21 Uncontroll ed type II DM with CKD stg 3b and renal disease progressio n. F/u with Dr. Coelho next week to address hypertensi on and renal failure. Increase Toujeo to 35 u daily , pt. was strongly advised not to miss her injections . Lispro increase to 30 u BID, lower glipizide ER to 2.5 mg to avoid random hypoglycem ia. F/u 4-6 weeks. Long-term current use of insulin 413242771 Z79.4 hypoglycem ia management reviewed with pt. Glucagon kit forwarded to pharmacy. Hypertensi ve renal disease 89039901 I12.9 f/u with renal next week. {T. was encourage to test blood pressure daily at home until her visit with renal. [id number] Sendy Ulloa PA-C Main Office [address] [place] [address] 07/18/2023 09:53:54 07/18/2023 09:58:45 [id number] Sendy Ulloa PA-C Main Office [address] [place] [address] [place] [address] 08/18/2023 10:08:14 08/18/2023 10:14:26 [id number] Sendy Ulloa PA-C Main Office [address] [place] [address] [place] [address] 09/01/2023 14:42:32 09/01/2023 15:11:08 Renal disorder due to type 2 diabetes mellitus 371834805 E11.21 Uncontroll ed type II DM with CKD stg 3b and renal disease progressio n.CGM data reviewed and showed glucose elevation during the day starting in the am . PT. is not eating break and is not taking her lispro. Advise to eat glucerna bar and take lispro 10 u, increase to 36 u at lunch and 38 at dinner. Test 1-2 hr pc and increase every 5th day by 2 u at lunch and dinner until glucose is consistent ly under 180 range. F/u 4 weeks. Chronic ki dney disease stage 3B 889870824 N18.32 continue acei. jardiance was not approved for use by the insurance. F/u with renal. [id number] Sendy Ulloa PA-C Main Office [address] [address] [place] [address] 09/19/2023 09:23:42 09/19/2023 09:31:17 [id number] Sendy Ulloa PA-C Telehealt h [address] [address] [place] [address] 10/09/2023 14:26:32 10/09/2023 15:38:12 Renal disorder due to type 2 diabetes mellitus 606122301 E11.21 Uncontroll ed type II DM with CKD stg 3b and renal disease progressio n. CGM data reviewed with pt , another upload will be done on 10/23/23. Pt. is having big glucose fluctuatin g from hyperglyce gerardo post meals to hypoglycem ia at night, lowest at 52 last night at 2 pm. Pt. is advised to try mounjaro so we can reduce premeal insulin and eventually might be able to stop completely when glucose normalizes . F/u 6 weeks. Next upload om 10/23/23. Pt. will lower humalog by half when mounjaro started at 2.5 mg weekly for 4 weeks. then 5 mg weekly. Chronic ki dney disease stage 3B 587988397 N18.32 continue acei. jardiance was not approved for use by the insurance. F/u with renal. [id number] Sendy Ulloa PA-C Main Office [address] [address] [place] [address] 10/23/2023 09:49:23 10/23/2023 10:02:03 [id number] MADELINE MESSER MD Main Office [address] [address] [place] [address] 10/27/2023 09:07:45 10/27/2023 09:33:51 Renal disorder due to type 2 diabetes mellitus 615009544 E11.21 - not well controlled - HbA1c is 8.9- c/w insulin lispro 30 units- pt has not yet gotten mounjaro and as not started medication , will check if insurance approved it Long-term current use of insulin 983254408 Z79.4 Hypertensi ve renal disease 45224958 I12.9 - at goal- BP today 152/84 and on repat 132/74- was previously on lisinopril but medication stopped by nephrologi st due to hyperkalem ia and renal tubular acidosis- c/w on amlodipine 5mg- RTC in 6 months Pt is counselled on:-Dietar y Approaches to Stop Hypertensi on (DASH) is an eating plan rich in fruits, vegetables , whole grains, fish, poultry, nuts, legumes, and low-fat dairy. These foods are high in macias nutrients such as potassium, magnesium, calcium, fiber, and protein.-A dvised continued adherence to medication s and low salt diet - extensive counsellin g done regarding dietary habits.-En couraged regular aerobic exercise 30 min for 4-5 x week.-BP monitoring at home advised to bring log at every visit-Side -effects of high BP can cause Stroke, Heart attack and even d/w pt-D/w pt when to call 911 or reach out to Health care provider:> Think you are having a reaction to a medicine you are taking.>Milligan ve headaches that keep coming back (recurring ).>Feel dizzy.>Hav e swelling in your ankles.>Milligan ve trouble with your vision. Chronic ki dney disease stage 4 [id number] N18.4 - creatine is 1.79 and GFR is 31 done on 06/19/2023- pt was last following with renal regularly, was seen on 06/2023- pt advised to hold all NSAIDS, avoid nephrotoxi c drugs and stay hydrated Hyperkalemia [id number] E8 7.5 - most recent potassium levels was 5.4 on 03/21- lokelma was not approved by insurance- pt is currently taking kaycelate weekly Renal tubu lar acidosis [id number] N25.89 - type 4- lisinopril is currently on hold- pt continues to follow with renal- taking sodium bicard 650mg weekly as well -> given by nephrology - will need a renal biopsy [id number] MADELINE MESSER MD Main Office [address] [facility] [address] [facility] [place] [phone] 11/10/2023 14:23:31 11/10/2023 16:01:28 Chronic mastoiditis [id number] H70.11 - MRI of the brain done on 11/03/2023 is showing right sided mastoid effusion which may represent mastoiditi s- due to patient not having any complaints do not believe patient is having acute mastoiditi s- will however treat for possible chronic mastoiditi s> pt provided with ciprofloxa geovanny ear drops for two week- will refer patient to ENT for follow-up- will repeat imaging in 3 months [id number] Patito Banda Main Office [address] [facility] [address] [facility] [place] [phone] 02/06/2024 11:57:30 02/06/2024 11:59:32 Health Concerns Section Related Observation LastModified by Organization Detai ls LastModified Time None Recorded Concern Status LastModified by Organization Details LastModified Time None Recorded Advance Directives Directive N: Payers Encounter Date Sequence Insurance Name Policy Number Policy Wooten Covered Member ID Wooten Member ID Guarantor Name 10/09/2023 1 [place] [id number] 1 Annabella Ramirez [id number] Annabella James 10/23/2023 1 [place] [id number] 1 Annabella Ramirez [id number] Annabella James 10/27/2023 1 [place] [id number] 1 Annabella Ramirez [id number] Annabella James 11/10/2023 1 [place] [id number] 1 Annabella Ramirez [id number] Annabella James 02/06/2024 1 [place] [id number] 1 Annabella Ramirez [id number] Annabella Robertsondonado Notes Date Note Type Note Provider Name and Address Organization Details Recorded Time 10/09/2023 text/html Diabetes F/URepo rted bypatient.Context:see ing eye doctor regularly; checking feet regularly;home blood sugar range high;not taking aspirin daily Associated Symptoms:no dizziness; no headaches; no confusion; no increased thirst; no increased urination; no blurred vision;weight gain ( lbs); reports fatigueNotes:A1c today is 8.9% from 9.4% 6 weeks ago. Meds: Toujeo 35u , lispro none in the am ( pt is not eating), 38 u before lunch and dinner.CGM upload on 09/19/23 showed post meal elevations 180-200 range after lunch and 180-250 post dinner. Pt. reports once per week glucose also drops at night. Last night was 52. Pt. ate at 10 pm took 38 u of premeal insulin and dropped 4 hrs later to 52. CGM upload did not reflect hypoglycemia. Pt. uses devise about 70% of the time. Variability is a little bit high at 28.9%. GMI was 7.9% with last upload. Sendy Ulloa PA-C [address] [address], [place], [phone], [facility] 10/09/2023 15:35:22 10/27/2023 text/html Hypertension F/UReported bypatient.Notes:Patie nt here for follow-up of elevated blood pressure. Pt is not exercising and is not adherent to a low-salt diet. Blood pressure is not checked at home. Cardiac symptoms: none. Patient denies: chest pain, heart palpitations, headaches, lower extremity edema, dizziness. Cardiovascular risk factors: HLD, obesity, DM. Use of agents associated with hypertension: none. History of target organ damage: yes (CKD). Annabella Ramirez is a 62 year old F who presented to the clinic for follow-up on her chronic conditions. Hyperkalemia: Pt clinical admissions manager has patient started patient on kayacelate which she takes once a week. Lisinopril has been stopped and no blood pressure medications were given in substitute. Pt will be seeing her clinical admissions manager later today. Pt mentions her vision is doing much better. She is now able to drive. Patient is following with our clinical partner for diabetes. Patient has been having a hard time getting GLP-1s approved by insurance. MADELINE MESSER MD [address] [address], [place], [phone], [facility] 10/27/2023 09:34:52 11/10/2023 text/html Annabella Ramirez is a 62 year old F who was seen over TH for discussion of recent MRI brain findings ordered by her project development leader. Pt mentioned to MD that the imaging was ordered to ensure there no underlying brain mass or opthalmologic problem. On the scan it was noted there was mastoiditis which the project development leader left for PCP to address. Pt is currently asymptomatic, has no complaints. MADELINE MESSER MD [address] [address], [place], [phone], [facility] 11/10/2023 16:22:56 OBGyn Episode No OBEpisode recorded.
[2024-03-29 14:04] VITALS: BP 116/62; PULSE 88; O2SAT 94; BMI 28.9
--- NOTE | 2024-03-29 14:04 | HO.NEPHOV_ITS ---
Vital Signs 03/29/24 14:04 Height 5 ft 1 in Weight 153 lb BMI 28.9 BP 116/62 Blood Pressure Location Lt brachial Position Sitting Pulse 88 Pulse Source Pulse Oximeter Pulse Oximetry (%) 94 Oxygen Delivery Method Room Air Intake Visit Reasons: 2mon follow up-[facility] Fitness Services Manager Required: No Accompanied by: Self / Same As Patient Allergies amoxicillin Allergy (Verified 03/29/24 14:06) Anaphylaxis sodium zirconium cyclosilicate [From Lokelma] Allergy (Verified 03/29/24 14:06) Unknown Sulfa (Sulfonamide Antibiotics) Allergy (Verified 03/29/24 14:06) Shortness of Breath HPI Comments Details: Annabella was seen in follow-up of her diabetic nephropathy and chronic kidney dise ase. Her blood sugar control is better. She has taken is SGLT2 inhibitor in the past but had come off it. She denies any dizziness, nausea, vomiting, diarrhea or urinary symptoms. She has no pedal edema. She denies any chest pain, shortness of breath, proximal nocturnal dyspnea, orthopnea. She tries to maintain good hydration. She avoids nonsteroidal anti-inflammatory use. REPLACED BY [facility] Medical History (Updated 03/06/23 @ 16:26 by Terrence Coelho MD) Hyperkalemia Edema Proteinuria due to type 2 diabetes mellitus Chronic kidney disease Diabetic acidosis, type II Surgical History History of lumpectomy Family History Mother Diabetes Maternal Grandmother Cancer Diabetes Social History Alcohol intake: never Patient Tobacco Use Status: Never used Tobacco Review of Systems Const All systems reviewed & are unremarkable except as noted in HPI and below Physical Exam Vital Signs: Last Vital Signs Pulse 88 03/29/24 14:04 BP 116/62 03/29/24 14:04 Pulse Ox 94 03/29/24 14:04 Oxygen Delivery Method Room Air 03/29/24 14:04 BMI result Body Mass Index 28.9 Const General: comfortable and no acute distress Orientation/consciousness: patient oriented x3 HEENT Head: Yes normocephalic Mouth: Normal oral and palatal mucosa present Eyes EOM: EOMs intact bilaterally Neck Neck: Yes supple Resp Auscultation: clear to auscultation bilaterally Cardio Jugular venous distension: no JVD Rate: regular rate GI Palpation (GI): Soft to palpation Auscultation: normal bowel sounds General: Yes no CVA tenderness Back/Spine/Pelvis Back: no CVA tenderness Skin General skin exam: no rashes or lesions noted Neuro General: patient oriented x3 and moves all extremities Extrem General: Yes no pedal edema Results Reviewed Nephrology Results: No Data to Display Assessment & Plan Assessment & Plan (1) Proteinuria due to type 2 diabetes mellitus: Code(s): E11.29 - Type 2 diabetes mellitus with other diabetic kidney complication; R80.9 - Proteinuria, unspecified Category: Medical (2) Hyperkalemia: Code(s): E87.5 - Hyperkalemia Category: Medical (3) CKD stage 3 secondary to diabetes: Code(s): E11.22 - Type 2 diabetes mellitus with diabetic chronic kidney disease; N18.30 - Chronic kidney disease, stage 3 unspecified Category: Medical (4) Hypertension: Code(s): I10 - Essential (primary) hypertension Category: Medical Qualifiers: Hypertension type: primary hypertension Qualified Code(s): I10 - Essential (primary) hypertension Plan Annabella has chronic kidney disease from diabetic nephropathy. 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 She was having progression of her renal disease. She should continue to hold her CARLO-inhibitor as well as Kayexalate to 30 g twice a week . I started her on SGLT2 I today. She should continue taking NaHCO3 650 mg bid as prescribed to help with acidosis which should help with her hyperkalemia. I shall back off on her NaHCO3 to once a day with time. She was encouraged to maintain her blood sugar at goal. She avoids nonsteroidal anti- inflammatory medication and should maintain good hydration. I did not make any other medication changes and addressed all her questions and concerns. Follow- up given Orders: Orders Blood Urea Nitrogen 2 Months E11. - Type 2 diabetes mellitus with diabetic chronic kidney disease, E11. - Type 2 diabetes mellitus with other diabetic kidney complication, E87.5 - Hyperkalemia, I10 - Essential (primary) hypertension, N18.30 - Chronic kidney disease, stage 3 unspecified, R80.9 - Proteinuria, unspecified Creatinine 2 Months E11.22 - Type 2 diabetes mellitus with diabetic chronic kidney disease, E11.29 - Type 2 diabetes mellitus with other diabetic kidney complication, E87.5 - Hyperkalemia, I10 - Essential (primary) hypertension, N18.30 - Chronic kidney disease, stage 3 unspecified, R80.9 - Proteinuria, unspecified Electrolytes 2 Months E11.22 - Type 2 diabetes mellitus with diabetic chronic kidney disease, E11.29 - Type 2 diabetes mellitus with other diabetic kidney complication, E87.5 - Hyperkalemia, I10 - Essential (primary) hypertension, N18.30 - Chronic kidney disease, stage 3 unspecified, R80.9 - Proteinuria, unspecified Medications: New empagliflozin (Jardiance) 5 mg (1/2 x 10 mg) PO DAILY 30 days 15 tabs 3RF Coding Level of Care Code Est Pt Level 4 (54539) Diagnoses Proteinuria due to type 2 diabetes mellitus E11.29; R80.9 Hyperkalemia E87.5 CKD stage 3 secondary to diabetes E11.22; N18.30 Primary hypertension I10 Hypertension type: primary hypertension
== END 2024-03-29 14:28 | disposition home or self-care (01) ==
PROVIDERS: PCP Student in an Organized Health Care Education/Training Program; Visit Provider Internal Medicine Nephrology
DX: R80.9 Proteinuria, unspecified (principal); I12.9 Hypertensive chronic kidney disease with stage 1 through stage 4 chronic kidney disease, or unspecified chronic kidney disease; E11.22 Type 2 diabetes mellitus with diabetic chronic kidney disease; N18.30 Chronic kidney disease, stage 3 unspecified; E87.5 Hyperkalemia
CPT/HCPCS: 99214

== ENCOUNTER 2024-05-24 14:39 | Outpatient (AMB) | payer OTHER, SELFPAY ==
--- NOTE | 2024-05-24 14:40 | HO.NEPHOV ---
Vital Signs 05/24/24 14:47 Height 5 ft 1 in Weight 141 lb BMI 26.6 BP 138/80 Blood Pressure Location Lt brachial Position Sitting Pulse 79 Pulse Source Pulse Oximeter Pulse Oximetry (%) 100 Oxygen Delivery Method Room Air Intake Visit Reasons: 2 mon [id number] Bilingual Interpreter Required: No Accompanied by: Self / Same As Patient Allergies amoxicillin Allergy (Verified 05/24/24 14:47) Anaphylaxis sodium zirconium cyclosilicate [From Lokelma] Allergy (Verified 05/24/24 14:47) Unknown Sulfa (Sulfonamide Antibiotics) Allergy (Verified 05/24/24 14:47) Shortness of Breath HPI Comments Details: Annabella was seen in follow-up of her diabetic nephropathy and chronic kidney disease. Her blood sugar control is labile. She has taken is SGLT2 inhibitor in the past but had to come off it. She denies any dizziness, nausea, vomiting, diarrhea or urinary symptoms. She has no pedal edema. She denies any chest pain, shortness of breath, proximal nocturnal dyspnea, orthopnea. She tries to maintain good hydration. She avoids nonsteroidal anti-inflammatory use. [facility] Medical History (Updated 03/06/23 @ 16:26 by Terrence Coelho MD) Hyperkalemia Edema Proteinuria due to type 2 diabetes mellitus Chronic kidney disease Diabetic acidosis, type II Surgical History History of lumpectomy Family History Mother Diabetes Maternal Grandmother Cancer Diabetes Social History Alcohol intake: never Patient Tobacco Use Status: Never used Tobacco Review of Systems Const All systems reviewed & are unremarkable except as noted in HPI and below Physical Exam Const General: comfortable and no acute distress Orientation/consciousness: patient oriented x3 HEENT Head: Yes normocephalic Mouth: Normal oral and palatal mucosa present Eyes EOM: EOMs intact bilaterally Neck Neck: Yes supple Resp Auscultation: clear to auscultation bilaterally Cardio Jugular venous distension: no JVD Rate: regular rate Heart sounds: Murmur heart sound present GI Palpation (GI): Soft to palpation Auscultation: normal bowel sounds General: Yes no CVA tenderness Back/Spine/Pelvis Back: no CVA tenderness Skin General skin exam: no rashes or lesions noted Neuro General: patient oriented x3 and moves all extremities Extrem General: Yes no pedal edema Results Reviewed Nephrology Results: No Data to Display Assessment & Plan Assessment & Plan (1) Hypertension: Code(s): I10 - Essential (primary) hypertension Category: Medical Qualifiers: Hypertension type: primary hypertension Qualified Code(s): I10 - Essential (primary) hypertension (2) CKD stage 3 secondary to diabetes: Code(s): E11.22 - Type 2 diabetes mellitus with diabetic chronic kidney disease; N18.30 - Chronic kidney disease, stage 3 unspecified Category: Medical (3) Hyperkalemia: Code(s): E87.5 - Hyperkalemia Category: Medical (4) Proteinuria due to type 2 diabetes mellitus: Code(s): E11.29 - Type 2 diabetes mellitus with other diabetic kidney complication; R80.9 - Proteinuria, unspecified Category: Medical Plan Annabella has chronic kidney disease from diabetic nephropathy. She has H/O Type 4 RTA & has significant proteinuria. She was having progression of her renal disease. She should continue to hold her CARLO-inhibitor & C/W Kayexalate 30 g twice a week. She has not been getting Jardiance becos of insurance issues. I reduced her NaHCO3 to once a day . She was encouraged to maintain her blood sugar at goal. She avoids nonsteroidal anti-inflammatory medication and should maintain good hydration. I did not make any other medication changes and addressed all her questions and concerns. Follow-up given Orders: Orders Creatinine 4 Months E11.22 - Type 2 diabetes mellitus with diabetic chronic kidney disease, E11.29 - Type 2 diabetes mellitus with other diabetic kidney complication, I10 - Essential (primary) hypertension, N18.30 - Chronic kidney disease, stage 3 unspecified, R80.9 - Proteinuria, unspecified Blood Urea Nitrogen 4 Months E11.22 - Type 2 diabetes mellitus with diabetic chronic kidney disease, E11.29 - Type 2 diabetes mellitus with other diabetic kidney complication, I10 - Essential (primary) hypertension, N18.30 - Chronic kidney disease, stage 3 unspecified, R80.9 - Proteinuria, unspecified Electrolytes 4 Months E11.22 - Type 2 diabetes mellitus with diabetic chronic kidney disease, E11.29 - Type 2 diabetes mellitus with other diabetic kidney complication, I10 - Essential (primary) hypertension, N18.30 - Chronic kidney disease, stage 3 unspecified, R80.9 - Proteinuria, unspecified Medications: Discontinued empagliflozin (Jardiance) Discontinued Reason: Doctor's Order 5 mg (1/2 x 10 mg) PO DAILY 30 days 15 tabs 3RF Coding Level of Care Code Est Pt Level 4 (63123) Diagnoses Primary hypertension I10 Hypertension type: primary hypertension CKD stage 3 secondary to diabetes E11.22; N18.30 Hyperkalemia E87.5 Proteinuria due to type 2 diabetes mellitus E11.29; R80.9
[2024-05-24 14:47] VITALS: BP 138/80; PULSE 79; O2SAT 100; BMI 26.6
--- OUTSIDE RECORDS SUMMARY | 2024-05-24 16:21 | XMS_ITS | Patient Health Record ---
Author Organization [employer] [facility] Address [address] [place] [address] Care Team Providers Care Gold Charmer Name Role Phone LUCAS SMITH, BETITO Primary Care Provider Krystal Archuleta Unavailable [phone] Allergies Allergen (clinical drug ingredient) Drug/Non Drug Allergy documented on EMR Reaction Allergy Type Onset Date Status amoxicillin Amoxicillin Unknown Drug Allergy Act leia Substance with sulfonamide structure and antibacterial mechanism of action (substance) Sulfa Antibiotics Unknown Drug Allergy Active Reason For Referral No Information Medications Medication SIG (Take, Route, Frequency, Duration) Notes Start Date End Date Status Lisinopril 5 MG 1 tablet Orally Twic e a day [facility] 10/12/2011 Active Vitamin D (Ergocalciferol) 36898 UNIT 1 capsule Orally EVERY WEEK for 90 days 11/07/2022 Active HumaLOG KwikPen 100 UNIT/ML ADMINISTER 12 UNITS UNDER THE SKIN THREE TIMES DAILY BEFORE MEALS Subcutaneous for 28 E1129,Unavailab le Active glipiZIDE 10 MG 1 tablet Orally Once a day [facility] 02/14/2011 Active Social History Tobacco Use: Social History Observation Description Date Details (start date - stop date) Never Smoker NA - NA Tobacco Use/Smoking Question Answer Notes Are you a nonsmoker Alcohol Screen (Audit-C) Question Answer Notes Did you have a drink containing alcohol in the p ast year? No Points 0 Interpretation Negative Problems Problem Type SNOMED Code ICD Code Onset Dates Problem Status W/U Status Risk Notes Problem Vitamin D deficiency (82078885) Vitamin D deficiency, unspecified (E55.9) Active confirmed Problem Malignant neoplasm o f female breast (665908351) Malignant neoplasm of unspecified site of right female breast (C50.911) Active confirmed Problem Disorder due to type 2 diabetes mellitus (950372978) Type 2 diabetes mellitus with unspecified complications (E11.8) Active confirmed Problem Type II diabetes mellitus without complication (746416958) Type 2 diabetes mellitus without complications (E11.9) Active confirmed Problem Hyperparathyroidism (17378417) Hyperparathyroid ism, unspecified (E21.3) Active confirmed Problem Screening for malignant neoplasm of breast (344134541) Encounter for screening mammogram for malignant neoplasm of breast (Z12.31) Active confirmed Problem Screening for osteoporosis (164382364) Encounter for screening for osteoporosis (Z13.820) Active confirmed Problem Personal history of primary malignant neoplasm of breast (586626764) Personal history of malignant neoplasm of breast (Z85.3) Active confirmed Problem Candidal vulvovaginitis (44136957) Candidiasis of vulva and vagina (112.1) Active confirmed Diag Problem Malignant neoplasm o f female breast (722016731) Malignant neoplasm of other specified sites of female breast (174.8) Active confirmed Major Problem Hypothyroidism (41243358) Unspecified hypothyroidism (244.9) Active confirmed Major Problem Type II diabetes mellitus without complication (181608290) Diabetes mellitus without mention of complication, type II or unspecified type, not stated as uncontrolled (250.00) Active confirmed Major Problem Acne (48800293) Other acne (706.1) Active confirmed Other Problem Atypical glandular cells on cervical Papanicolaou smear (800194953) Abnormal glandular Papanicolaou smear of cervix (795.00) Active confirmed Diag Problem Gynecological examination normal (022274453436295) Routine gynecological examination (V72.31) Active confirmed Major Problem Screening for malignant neoplasm of colon (878580934) Special screening for malignant neoplasms, colon (V76.51) Active confirmed Major Encounters Encounter Location Date Provider Diagnosis Total [address] [place] [address] 02/09/2024 Krystal Kwong Plan Of Treatment Pending Test Test Name Order Date MAMMOGRAM, SCREENING 01/22/2021 MAMMOGRAM, SCREENING 02/03/2023 MAMMOGRAM, SCREENING 05/19/2014 Urinalysis 06/29/2015 Urinalysis 01/22/2021 Glucose, random 01/28/2022 1,25OH VITAMIN D 02/03/2023 25OH VITAMIN D 11/29/2022 PTH, INTACT 11/29/2022 BONE DENSITY 01/28/2022 MM Digital Mammo Screening 07/11/2016 MM Digital Mammo Screening 02/03/2023 MM Digital Mammo Screening 01/22/2021 MM Digital Mammo Screening 01/28/2022 Insurance Providers Payer Name Payer Address Payer Phone Subscriber Number Group Number Insured Name Patient Relationship to Insured Coverage Start Date Coverage End Date [employer] [place] [address] [place] [address] [id number] ANNIKA BATES Self - patient is the insured Medical (General) History Medical History History ICD Code Unspecified abnormal cytological finding s in specimens from cervix uteri R87.619 Candidiasis of vulva and vagina B37.3 Other specified diabetes mellitus withou t complications E13.9 Hypothyroidism, unspecified E03.9 Acne, unspecified L70.9 Malignant neoplasm of overlapping sites of right female breast C50.811 Other acne L70.8 Postmenopausal bleeding N95.0 Excessive and frequent menstruation with regular cycle N92.0 Leiomyoma of uterus, unspecified D25.9 Type 2 diabetes mellitus with unspecifie d complications E11.8 Hyperparathyroidism, unspecified E21.3 Vitamin D deficiency, unspecified E55.9 Surgical History Surgery Date(Month/Year) Colonoscopy Right Breast Biopsy Right Lumpectomy Carson Teeth Extraction Abdominoplasty Hysteroscopy, Fraction D&C 09/17/15 Hospitalization History Reason Date(Month/Year) See Surgical Hx
--- OUTSIDE RECORDS SUMMARY | 2024-05-24 16:21 | XMS_ITS ---
Author Organization [employer] Address [address] [address] Care Team Providers Care Eye Glass Frame Polisher Name Role Phone LUCAS SMITH, BETITO Primary Care Provider Nahedv mackenzie Kwong Krystal Unavailable [phone] Results Component Value Reference Range Notes COMPLETE URINALYSIS Reviewed date:02/19/2023 03:56:05 PM Interpretation: Performing Lab:Testing performed or reported by [facility], a Service of [facility], [address] [place] [address] Christoph Aguilera MD, Parts Counter Associate CLIA# [id number] Notes/Report: APPEAR/COLOR LIGHT YELLOW TURBID SP. GRAVITY 1.013 (1.002-1.030) URINE PH 6.0 (5.0-8.0) URINE ALBUMIN 2+ (NEG) URINE GLUCOSE 2+ (NEG) URINE KETONES NEGATIVE (NEG) URINE BILIRUBIN NEGATIVE (NEG) URINE HEMOGLOBIN 1+ (NEG) URINE NITRITE NEGATIVE (NEG) URINE LEUKOCYTE 2+ (NEG) UROBILINOGEN NORMAL (NORM) MG/DL URINE WBCs 19 (0-5) /HPF URINE RBCs 3 (0-3) /HPF BACTERIA SLIGHT (NEG) HPF MUCUS SLIGHT SQUAMOUS EPITH 16 (0-8) /HPF URINE CULTURE Reviewed date:02/19/2023 03:55:13 PM Interpretation: Performing Lab:Testing performed or reported by [facility], a Service of [facility], [address] [place] [address] [place] [address] Christoph Aguilera MD, Parts Counter Associate CLIA# [id number] Notes/Report: SPECIMEN DESCRIPTION URINE SPECIAL REQUESTS NONE CULTURE NO GROWTH REPORT STATUS FINAL 02/19/2023 REASON FOR VISIT LAB SLIP FOR UA/C+S Encounters Encounter Location Date Provider Diagnosis [facility] [address] [facility] [address] [place] [address] 02/17/2023 Krystal Kwong Gross hematuria R31.0 Assessments Encounter Date Diagnosis (ICD Code) Assessment Notes Treatment Notes Treatment Clinical Notes Section Notes 02/17/2023 Gross hematuria (ICD-10 - R31.0) Plan Of Treatment No Information Progress Notes * LINDSEY BATESOB: [birth year] (62 yo F)Acc No.[id number]:02/17/2023 Patient:?ANNIKA BATES :1960???Age:62 Y???Sex:Female Address:[address] [place] [address], [place] [address] Subjective: * Chief Complaints: * ??? LAB SLIP FOR UA/C+S * Medical History:? * Surgical History:? * Hospitalization/Major Diagno stic Procedure:? * Medications:? Objective: Assessment: * Assessment: 1.?Gross hematuria - R31.0? Plan: * Treatment: * Procedure Codes:? * true * Date:? Generated for Dionte harris/Bennett/eTransmitting on:?05/24/2024 04:21 PM EST
--- OUTSIDE RECORDS SUMMARY | 2024-05-24 16:21 | XMS_ITS | Clinical Summary ---
Author Organization [facility] Address [address] [facility] [address] [place] [address] Phone Care Team Providers Care Pump House Engineer Name Role Phone Madeline Messer MD Primary Care Provider [phone] Allergies Active Allergy Reactions Criticality Noted Date Comments Amoxicillin 12/03/2021 Other reaction(s): vomiting Penicillins 07/30/2012 Sulfa Antibiotics Other (see comments) 05/15/19 21 Medications furosemide (Lasix) 40 MG tablet Take 1 tablet (40 mg total) by mouth 1 (one) time each day for 14 days 14 tablet 2 Active ergocalciferol 1.25 MG (46162 UT) capsule Take 1 capsule by mouth per week 3 Active glipiZIDE (GLUCOTROL) 5 MG tablet Take 5 mg by mouth 1 (one) time each day 3 Active rosuvastatin (CRESTOR) 20 MG tablet Take 20 mg by mouth 1 (one) time each day 3 Active lisinopril 10 MG tablet Take 10 mg by mouth in the morning and 10 mg in the evening. 3 Active HumaLOG KWIKPEN 100 UNIT/ML solution pen-injector ADMINISTER 12 UNITS UNDER THE SKIN THREE TIMES DAILY BEFORE MEALS 3 Active Insulin Glargine (TOUJEO MAX SOLOSTAR SC) Inject under the skin Active Dapagliflozin Propanediol (Farxiga) 5 MG tablet Take 5 mg by mouth 1 (one) time each day in the morning 30 tablet 2 3 Active Active Problems Problem Noted Date Diagnosed Date Hypertension 03/03/2022 Type 2 diabetes mellitus 12/03/2021 Chronic kidney disease stage 3B 10/23/2020 Chronic kidney disease stage 1 05/15/2020 Microalbuminuria 10/06/2019 Hypertensive renal disease 01/23/2017 Renal disorder due to type 2 diabetes mellitus 0 11/28/2016 Unspecified lump in unspecified breast 2 Malignant tumor of breast 09/08/2010 Resolved Problems Problem Noted Date Diagnosed Date Resolved Date Noncompliance with treatment 01/06/2020 02/10/2021 Obesity 10/08/2018 02/10/2021 Hyperlipidemia 08/23/2017 02/10/2021 Personal history of primary malignant neoplasm of breast 07/25/2016 02/10/2021 Disorder of thyroid gland 07/30/2012 Immunizations Name Administration Dates Next Due Influenza TIV (IM) 10/17/2014,12/19/2011 Influenza, MDCK, PF, Quadrivalent 01/12/2020 Influenza, Quadrivalent, Preservative Free 11/25,12/18/2017 Influenza, Quadrivalent, With Preservative 08/18 Influenza, Unspecified 12/18/2021,11/01/2015 Pfizer SARS-COV-2 08/07/2020,07/16/2020 Pneumococcal Polysaccharide 07/20/2015 Tdap 10/08/2018,03/20/2008 Family History Medical History Relation Comments Diabetes Mother Hypertension Mother Kidney disease Mother Hypertension Sibling Relation Status Comments Father Alive Mother Sibling Social History Tobacco Use Types Packs/Day Years Used Date Smoking Tobacco: Never Smokeless Tobacco: Never Tobacco Cessation:Counseling Given: Not Answered Alcohol Use Standard Drinks/Week Comments No 0 (1 standard drink = 0.6 oz pur e alcohol) Comments Unknown Sex and Gender Information Value Date Recorded Sex Assigned at Not on file Legal Sex Female 4:50 PM EST Gender Identity Not on file Sexual Orientation Not on file Last Filed Vital Signs Vital Sign Reading Time Taken Comments Blood Pressure 120/82 11/10/2022 4:47 PM EDT Pulse 76 11/10/2022 4:47 PM EDT Temperature - - Respiratory Rate - - Oxygen Saturation - - Inhaled Oxygen Concentration - - Weight 77.1 kg (170 lb) 11/10/2022 4:47 PM EDT Height 154.9 cm (5' 1 ) 10/11/2019 12:00 PM EDT Body Mass Index 32.12 10/11/2019 12:00 PM EDT Plan of Treatment Health Maintenance Due Date Last Done Comments Breast Cancer Screening 1960 Colorectal Cancer Screening: Annual FOBT 11/10/2008 Colorectal Cancer Screening: Colonoscopy 11/10/2008 Colorectal Cancer Screening: Sigmoidoscopy 11/10/2008 Pneumococcal Vaccine: Pediatrics (0 to 5 Years) and At-Risk Patients (6 to 64 Years) (2 of 2 - PCV) 07/19/2016 07/20/2015 Diabetes: Hemoglobin A1C 04/17/2020 Diabetes: Ophthalmology Exam 04/17/2020 Diabetes: Pedal Pulse Checked 04/17/2020 Diabetes: Sensory Foot Exam 04/17/2020 Diabetes: Visual Foot Exam 04/17/2020 Influenza Vaccine (#1) 2023 2, 12/18/2021, 01/12/2020, Additional history exists Hepatitis B Vaccine Aged Out No longe r eligible based on patient's age to complete this topic [place] [address] [address] [place] [address] Care Teams Pump House Engineer Relationship Specialty Start Date End Date Madeline Messer MD [address] [address] PCP - General Family Medicine 11/10/22
--- OUTSIDE RECORDS SUMMARY | 2024-05-24 16:21 | XMS_ITS | Encounter Summary ---
Author Organization [facility] Address [address] [place] [address] Phone Care Team Providers Care Asw Specialist Name Role Phone Madeline Messer MD Primary Care Provider [phone] Encounter Details Date Type Department Care Team (Late st Contact Info) Description 07/18/2020 Orders Only [facility] [address] [place] [phone] Terrence Coelho MD Hypertensive renal disease; Renal disorder due to type 2 diabetes mellitus <Diabetic nephropathy> (HCC); Chronic kidney disease stage 1 Social History Tobacco Use Types Packs/Day Years Used Date Smoking Tobacco: Never Smokeless Tobacco: Never Alcohol Use Standard Drinks/Week Comments No 0 (1 standard drink = 0.6 oz pur e alcohol) Comments Unknown Sex and Gender Information Value Date Recorded Sex Assigned at Not on file Legal Sex Female 4:50 PM EST Gender Identity Not on file Sexual Orientation Not on file COVID-19 Exposure Response Date Recorded In the last month, have you been in contact with someone who was confirmed or suspected to have Coronavirus / COVID-19? No / Unsure 06/18/2020 2:59 PM EDT documented as of this encounter Plan of Treatment Not on file documented as of this encounter Procedures Procedure Name Priority Date/Time Associated Diagnosis Comments RENAL FUNCTION PANEL Routine 10/19/2020 4:13 PM EDT Hypertensive renal disease Renal disorder due to type 2 diabetes mellitus <Diabetic nephropathy> (HCC) Chronic kidney disease stage 1 documented in this encounter Results * (ABNORMAL) Renal function panel (10/19/2020 4:13 PM EDT) [facility] Glucose 392(H) (70-99) MG/DL [facility] BUN 26(H) (8-23) MG/DL [facility] Creatinine 1.4(H) (0.5-1.0) MG/DL [facility] Sodium 139 (133-145) MMOL/L [facility] Potassium 5.4(H) (3.6-5.2) MMOL/L [facility] Chloride 102 (98-107) MMOL/L [facility] Bicarbonate (CO2) 28 (22-29) MMOL/L [facility] Anion Gap 9 (4-17) [facility] Albumin 4.4 (3.4-4.8) GM/DL [facility] Calcium 10.0 (8.6-10.5) MG/DL [facility] Phosphorus, Serum 3.4 (2.5-4.5) MG/DL [facility] Est GFR Non 42 ML/MIN/1.7 3 M2 [facility] Comment: Creatinine based estimated glomerular filtration rate (eGFR) is calculated using the Chronic Kidney Disease Epidemiology Collaboration (CKD-EPI). The CKD-EPI creatinine equation has not been validated in children (<18 years), women or in some racial or ethnic subgroups other than Caucasians and Americans. EST GFR 49 ML/MIN/1.7 3 M2 [facility] Comment: Creatinine based estimated glomerular filtration rate (eGFR) is calculated using the Chronic Kidney Disease Epidemiology Collaboration (CKD-EPI). The CKD-EPI creatinine equation has not been validated in children (<18 years), women or in some racial or ethnic subgroups other than Caucasians and Americans. Testing performed or reported by [facility], a Service of [facility], [address] [place] [id number] Leslie Andrade MD, Printer Operator Blood (Blood, Venous) 10/19/2020 4:13 PM EDT 10/19/2020 4:16 PM EDT us Terrence Coelho MD LAB BLOOD ORDERABLES Final Resul t [facility] documented in this encounter Visit Diagnoses Diagnosis Hypertensive renal disease Renal disorder due to type 2 diabetes mellitus <Diabetic nephropathy> (HCC) Chronic kidney disease stage 1 documented in this encounter Care Teams Asw Specialist Relationship Specialty Start Date End Date Madeline Messer MD [address] [phone] PCP - General Family Medicine 11/10/22 documented as of this encounter
--- OUTSIDE RECORDS SUMMARY | 2024-05-24 16:21 | XMS_ITS | Continuity of Care Document ---
Author Organization [facility], Main Office Address [address] [facility] [address] [place] [id number] Care Team Providers Care Instrument Worker Name Role Phone YOCASTA GARCIA Treasury Accountant [phone] FELICITA RAMIREZ Search Strategist LIBIA WINN [employer] Systems Consultant ANUM BOO Transit Coach Operator BETITO ZAVALA Primary Care Provider Assessment No assessment recorded. Plan of Treatment Reminders Order Date Submit Date Provider Last Modified By Organization Details Last Modified Time Details Appointments Follow Up DM 30 2024 02:00P M Sendy Ulloa PA-C Not available Not available Not available AWV30 2024 01:00P M BETITO ZAVALA MD Not available Not available Not available Lab HbA1c (hemoglob in A1c), blood 2024 025 DARIUSZ [facility] (Centralized Electronic Ordering - All Locations), Patient Can Go To The Location Of Their Choice, [id number] 04/26/2024 10:17:21 ALT (alanine aminotran sferase), serum or plasma 2024 025 DARIUSZ [facility] (Centralized Electronic Ordering - All Locations), Patient Can Go To The Location Of Their Choice, [id number] 04/26/2024 10:40:17 lipid panel, serum 2024 025 DARIUSZ [facility], [address], [place], [address], 04/26/2024 10:17:19 BMP, serum or plasma 2024 025 DARIUSZ [facility], [address], [place], [address], 04/26/2024 10:17:18 CBC w/ auto diff 2024 025 DARIUSZ [facility], [address], [place], [address], 04/26/2024 10:17:18 TSH, ultra-sen sitive, serum 2024 025 DARIUSZ [facility], [address], [place], [address], 04/26/2024 10:17:21 Referral None recorded. Procedures None recorded. Surgeries None recorded. Imaging None recorded. Medication Orders insulin lispro (U-100) 100 unit/mL subcutane ous pen 2024 025 [facility] #[id number], [address] [facility] [address] [place], [address], 04/26/2024 10:15:50 rosuvasta tin 20 mg tablet 2024 025 [facility][id number], [address] [place], [address], 04/26/2024 10:15:50 famotidin e 20 mg tablet 2024 025 [facility][id number], [address] [facility] [place], [address], 04/26/2024 10:15:50 Patient TargetsNo targets recorded. Patient Instructions Encounter Date Encounter Id Patient Instructions Last Modified By Organization Details Last Modified Time 04/26/2024 [id number] hyperkalemia: ca re instructions Not available 04/26/2024 10:15:47 gastroesophageal reflux disease (GERD): care instructions Not available 04/26/2024 10:15:47 Reason for Referral None Reported. Problems Name Problem SNOMED Code Status Onset Date Resolution Date Notes Provider Name and Address Organization Details Recorded Time Patient status finding [id number] Completed 201201/25/2016 RECORDED 07/31/19 13 2:46PM BY HEIDI STEELE, OFFICE VISIT MJ Latif, [facility] 6 08:43:20 Primary malignan t neoplasm of female breast 87082196 Completed 201203/26/2019 DX 2011 RIGHT BREAST TX WITH LUMPECTO MY, 3 LYMPH NODES REMOVED, THEN RADIATIO N FOLLOWED BY DR GONZALEZ FOR ONCOLOGY Sendy Ulloa PA-C [address] [facility] [address], [place], [address] , [facility], [place] 0 14:25:42 Screenin g for malignan t neoplasm of colon Completed 201210/01/2013 RECORDED 05/29/19 13 1:01PM BY KANE ABURTO MA, ANNOTATI ON/ADDEN DUM MJ Latif [facility] 6 08:43:35 Screenin g for malignan t neoplasm of colon Completed 201201/25/2016 RECORDED 09/28/19 13 2:32PM BY FISH LUGO , LAB REQ MJ Latif [facility] 6 08:43:35 Type 2 diabetes mellitus without complica tion 456524794 Completed 201201/23/2017 RECORDED 07/31/19 13 2:37PM BY HEIDI STEELE, OFFICE VISIT Irina reilly [facility] 7 12:03:28 Type 2 diabetes mellitus without complica tion 208145918 Completed 201210/01/2013 IMPRESSI ON: NEEDS TO ADD EXERCISE AND LOWER CARBS; RECORDED 05/29/19 13 2:07PM BY BRIAN RIGGS PA-C, ANNOTATI ON/ADDEN DUM Irina reilly [facility] 7 12:03:28 Uncontro lled type 2 diabetes mellitus 661787848 Completed 201201/25/2016 STORY: LABS 04/16/12 A1C 10.9.; IMPRESSI ON: VERY POOR CONTROL, RECENT AIC 9,3, NOT TESTING SUGARS, SKIPS MEALS, FEELS SUGARS UPA ND DOWN, PT STATES FELT UNWELL ON HIGHER THAN 500MG OF METFORMI N, PT WILL KEEP MEDS THE SAME, AD DMORE PROTEIN AND GO FOR WEIGHT LO2S BY REBECCA WISE, WE WILL SET PT UP WITH DR Elaine, WILL BE A GOOD CANDIDAT E FOR LANTUS.; RECORDED 07/31/19 13 3:18PM BY IRINA Curtis MD, OFFICE VISIT MJ Latif [facility] 6 08:43:40 Blood chemistr y outside referenc e range 911639071 Completed 201207/25/2016 RECORDED 08/21/19 13 3:13PM BY IRINA Curtis MD, PHONE ENCOUNTE R Irina Chen-Munira reilly [facility] 7 11:20:56 Influenz a vaccine needed [id number] 06 Completed 201210/01/2013 RECORDED 05/29/19 13 1:01PM BY KANE ABURTO MA, ANAATI ON/ADDEN DUM Sendy Ulloa PA-C [address] [address], [place], [address] , [facility], [place] 6 14:50:07 Adult health examinat ion Completed 201201/25/2016 IMPRESSI ON: PT TO SET UP PAP, MAMMO UTD, GETS EVERY 6 MONTHS; RECORDED 08/16/19 13 11:39AM BY POLY BANDA, HISTORIC AL SUMMARY MJ Latif [facility] 6 08:43:30 Essentia l hyperten cyndi [id number] Completed 201210/01/2013 RECORDED 05/29/19 13 1:02PM BY KANE ABURTO MA, ANNOTATI ON/ADDEN DUM Ann-Marie Carlos reilly [facility] 0 11:29:25 Laborato ry procedur e performe d 918634403 Completed 201301/25/2016 RECORDED 05/24/19 14 2:25PM BY KEAGAN ZEPEDA, LAB REMJ Heath, [facility] 6 08:43:25 Disorder of thyroid gland 64223805 Active 2012 WAS ON MED, OFF NOW MJ Latif, [facility] 3 11:15:56 Vitamin D deficien cy 17490292 Completed 201210/01/2013 IMPRESSI ON: WAS ON 50,OOO UNITS AND NOW ON DAILY, LEVEL WAS LOW LAST YEAR; RECORDED 05/29/19 13 1:01PM BY KANE ABURTO MA, ANNOTATI ON/ADDEN DUM Sendy Ulloa PA-C [address] [facility] [address], [place], [address] , [facility], [place] 6 14:50:07 Screenin g for malignan t neoplasm of colon Completed 201210/28/2013 RECORDED 05/29/19 13 1:01PM BY KANE ABURTO MA, ANNOTATI ON/ADDEN DUM MJ Latif, [facility] 6 08:43:35 Influenz a vaccine needed [id number] 06 Completed 201210/28/2013 RECORDED 05/29/19 13 1:01PM BY KANE ABURTO MA, ANNOTATI ON/ADDEN DUM Sendypj Ulloa PA-C [address] [facility] [address], [place], [address] , [facility], [place] 6 14:50:07 Essentia l hyperten cyndi 49756813 Completed 201210/28/2013 RECORDED 05/29/19 13 1:02PM BY KANE ABURTO MA, ANNOTATI ON/ADDEN DUM Ann-Marie Carlos reilly [facility] 0 11:29:25 Vitamin D deficien cy 55978083 Completed 201210/28/2013 IMPRESSI ON: WAS ON 50,OOO UNITS AND NOW ON DAILY, LEVEL WAS LOW LAST YEAR; RECORDED 05/29/19 13 1:01PM BY KANE ABURTO MA, ANNOTATI ON/ADDEN DUM Sendy Ulloa PA-C [address], [place], [address] , [facility], [place] 6 14:50:07 Postmeno pausal bleeding 58602236 Completed 07/25/2016 Irina reilly [facility] 7 11:21:51 Body mass index 30+ - obesity 061975485 Completed 07/25/2016 Irina reilly [facility] 7 11:22:07 Renal disorder due to type 2 diabetes mellitus 284243704 Active 2016 Not Available [facility] 0 14:09:52 Chronic kidney disease stage 1 732621076 Completed 201603/27/2017 Sendy Ulloa PA-C [address], [place], [address] , [facility], [place] 4 09:37:25 Hyperten sive renal disease 16305403 Active 2016 Not Available [facility] 0 14:09:52 Chronic kidney disease stage 2 185898929 Completed 201703/11/2019 Sendy Ulloa PA-C [address] [facility] [address], [place], [address] , [facility], [place] 9 10:45:46 Hyperlip idemia 00455376 Completed 201708/04/2022 BETITO ZAVALA MD [address] [facility] [address], [place], [address] , [facility], [place] 3 19:48:43 Chronic kidney disease stage 3 due to type 2 diabetes mellitus 13797488515 5 Completed 201703/26/2019 Ann-Marie reilly, [facility] 0 16:06:25 Obesity 455714594 Active 2018 MJ Latif, [facility] 3 11:15:56 Chronic kidney disease stage 3 838007851 Completed 201810/23/2020 Sendy Ulloa PA-C [address] [facility] [address], [place], [address] , [facility], [place] 1 11:24:48 Microalb uminuria 656375901 Active 2019 Not Available [facility] 0 14:09:52 Noncompl iance with treatmen t 1501220 Active 2019 MJ Latif, [facility] 3 11:15:56 Chronic kidney disease stage 3B 140047365 Active 2020 MJ Latif, [facility] 3 12:53:44 Malignan t tumor of breast 257595818 [place] [place] 3 12:53:44 Mixed hyperlip idemia 448225238 Active 2022 MJ Latif, [facility] 3 11:15:56 Long-ter m current use of insulin 618950262 Active 2022 MJ Latif, [facility] 3 11:15:56 Hyperkal emia 96364088 Active 2022 Justo Medeiros MD [address] [facility] [address], [place], [address] , [facility], [place] 3 04:35:12 Notes:Some problems listed i n Documents: #[id number], #[id number], #[id number], #[id number] could not be added to this patient's chart. Please review these documents and add these problems to the patient's chart manually as needed. Problem Notes None recorded. Procedures Surgical History Date Name Laterality Status Provider Name and Address Organization Details Recorded Time 08/28/19 24 Most Recent Mammogram completed Renay Lee [facility] 08/28/2023 11:14:34 05/25/19 24 diabetic retinopathy screening completed Renay Lee [facility] 06/30/2023 08:47:36 08/06/19 23 Diabetic Foot Exam (Monofilament) completed BETITO ZAVALA MD [address] [address], [place], [address], [facility], [place] 08/05/2022 13:30:00 03/20/19 22 Date of Last Pap Smear completed Heidi Steele MA [facility] 04/08/2022 13:03:50 10/24/19 21 Diabetic Foot Exam (Monofilament) completed Mikaela Issa MA [facility] 10/23/2020 10:35:13 10/20/19 21 Diabetic Foot Exam (Monofilament) completed Nanette Tapia MA [facility] 10/19/2020 15:17:02 05/01/19 21 Diabetic Foot Exam (Monofilament) cancelled Mikaela Issa MA [facility] 05/01/2020 11:27:35 02/14/20 20 Mammogram screening completed Patito Banda [facility] 02/17/2020 14:55:16 03/26/19 20 Diabetic Foot Exam (Monofilament) completed Sendy Ulloa PA-C [address] [address], [place], [address], [facility], [place] 03/26/2019 14:15:41 03/11/20 19 Diabetic Foot Exam (Monofilament) completed Olga Jacob [facility] 03/11/2019 10:24:03 06/05/19 19 Diabetic Foot Exam (Monofilament) completed Sendy QUIKC-C [address] [address], [place], [address], [facility], [place] 06/04/2018 15:02:54 12/27/19 18 Date of Last Colonoscopy completed Patito Banda [facility] 12/28/2017 10:11:50 12/27/19 18 Colonoscopy completed Patito Banda [facility] 12/28/2017 10:11:45 08/22/19 18 Diabetic Foot Exam (Monofilament) completed Jessica Solorzano MA [facility] 08/21/2017 11:01:40 08/05/19 18 Excision of Melanoma completed Halle Piña [facility] 08/18/2017 10:48:25 05/01/19 18 biopsy completed Shyanne hernandez MA [facility] 01/06/2020 08:53:48 03/20/19 16 Endometrial Ablation completed Shyanne hernandez MA [facility] 03/27/2017 13:13:32 03/20/19 15 Ultrasound breast limited completed Shyanne hernandez MA [facility] 03/27/2017 13:06:30 Breast Surgery completed Heidi sandhu MA [facility] 07/20/2015 11:06:21 Lesion destruction completed Heidi Steele MA [facility] 07/31/2017 13:52:53 Imaging Results None recorded. Procedure Notes None recorded. Medical Equipment None Reported. Allergies Allergen ID Allergen Name Allergen Category Reaction Reaction Severity Criticality Documentation Date Start Date Code Code System Note Provider Name and Address Organization Details Recorded Time Substance with sulfonami de structure and antibacte rial mechanism of action (substanc e) medicatio n Not available Not available Not available 06/02/20142012 31641 8003 SNOMED Melissa reilly [facility] 5 14:00:40 08357 amoxicill in medicatio n Not available Not available Not available 04/08/20222021 723 RxNorm MJ Latif [facility] 3 12:52:43 10498 potassium chloride medicatio n edema Not available Not available 04/22/2022 8591 RxNorm Not Available [facility] 3 17:07:33 4546 Product containin g penicilli n (product) medicatio n Not available Not available Not available 10/01/20132012 24358 8001 SNOMED Shyanne Amber monroe MA null, [facility] 8 12:59:53 45331 Trulicity medicatio n nausea Not available Not available 06/23/2023 49408 96 RxNorm Sendy Artemio YEE [address] [facility] [address], [facility], [address], [facility] 4 12:49:41 Medications Name Sig Start Date [...] completed Not Available Not Available Not Available famotidin e 20 mg tablet TAKE 1 TABLET EVERY DAY BY ORAL ROUTE FOR 30 DAYS, FOR GERD. 2024 active Not Available Not Available Not Avai lable sodium bicarbona te 650 mg tablet TAKE 1 TABLET BY MOUTH TWICE A DAY active Not Available Not Available No t Available glipizide ER 2.5 mg tablet, extended release 24 hr 1 po qd 08/31 completed Not Available Not Available Not Available lisinopri l 10 mg tablet Take 1 tablet twice a day by oral route. 04/26 completed on hold due to most recent GFR of 26 and hyperkal emia Not Available Not Available Not Available hydrocodo ne-homatr opine 5 mg-1.5 mg/5 [...] sodium polystyre ne sulfonate oral powder TAKE 30GRAM BY MOUTH ONCE A WEEK active Not Available Not Available [...] lispro (U-100) 100 unit/mL subcutane ous pen INJECT 8 UNITS TWICE A DAY BY SUBCUTAN EOUS ROUTE BEFORE MEALS FOR 60 DAYS. active Not Available Not Available No t Available Vitamin D3 25 mcg (1,000 unit) capsule [...] day by miscell. route for 90 days. 04/26 completed Not Available Not Available Not Available sitaglipt in phos 50 mg-metfor min ER [...] Not Available Not Available Not Available Afluria 4921-6034 (PF) 45 mcg (15 mcg x 3)/0.5 [...] not started as of 11/05/19 23 This [facility] has it in stock Not Available Not [...] 5 mg/0.5 mL subcutane ous pen injector ADMINIST ER 5MG UNDER THE SKIN WEEKLY active Not Available Not Available No t Available Mounjaro 2.5 mg/0.5 mL subcutane ous pen injector ADMINIST ER 2.5 MG UNDER THE SKIN EVERY WEEK 11/02 completed Not Available Not Available Not Available FreeStCupple Baldo 3 Sensor device USE ONE SENSOR EVERY 14 DAY DIRECTED active Not Available Not Available No t Available Ozempic 0.25 mg or 0.5 mg (2 mg/3 mL) subcutane ous pen injector 02/10 completed Not Available Not Available Not Available Vitals Date Recorded Body height Body mass index (BMI) Body weight Oxygen saturation Oxygen saturation in Arterial blood by Pulse oximetry Heart rate Body temperature Systolic blood pressure Diastolic blood pressure Provider Name and Address Organization Details Last Updated DateTime 5 154.94 cm 27.7 kg/m2 96294.2 9 g 100 % 100 % 86 /min 97.6 [degF] 148 mm[Hg] 83 mm[Hg] Heidi Steele MA [facility] 5 10:01:34 Social History Question Answer Notes LastModified by Organizat ion Details LastModified Time Tobacco Smoking Status Never Smoker Heidi Steele MA [facility] 07/20/2015 11:08:43 Do You Have An Advance Directive? No Information not available 03/27/2017 What Is Your Level Of Alcohol Consumption? None [email or web address] Information not available 07/20/2015 Is Blood Transfusion Acceptable In An Emergency? Yes [email or web address] Information not available 07/20/2015 What Is Your Level Of Caffeine Consumption? Occasional [email or web address] Information not available 07/20/2015 How Much Tobacco Do You Chew? None Information not available 07/25/2016 Are You Currently Employed? Yes [email or web address] Information not available 07/20/2015 What Type Of Diet Are You Following? REGULAR [email or web address] Information not available 07/20/2015 Which Illicit Or Recreational Drugs Have You Used? None Information not available 07/25/2016 Do You Or Have You Ever Used E-cigarettes Or Vape? 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 With Others (Mateusz) Information not available 03/27/2017 Do You Take Precautions To Prevent Distracted Driving? Yes [email or web address] Information not available 07/20/2015 How Often Do [...] How Many Children Do You Have? 0 [email or web address] Information not available 07/20/2015 Do You Use Protection During Sex? No Information not available 03/27/2017 Seat Belts Used Routinely Yes [email or web address] Information not available 07/20/2015 Are You Sexually Active? Yes Information not available 03/27/2017 Smoke Alarm In Home Yes [email or web address] Information not available 07/20/2015 At What Age [...] 11/10/2023 Do You Use Sunscreen Routinely? Yes [email or web address] Information not available 07/20/2015 How Many Years [...] you able to care for yourself? Yes Information not available 07/20/2015 What is your exercise level? Occasional 2-3 times a week rides her stationary bike [email or web address] Information not available 04/08/2022 Mental Status None [...] virus, trivalent, preservative 5 completed Patito reilly [facility] 01/14/2020 15:48:48 Influenza, split virus, quadrivalent, preservative 7 completed MJ Latif [facility] 02/10/2023 11:22:48 Influenza, split virus, quadrivalent, PF 9 completed Heidi Steele, MA null, [facility] 02/10/2023 11:22:48 Influenza, MDCK, quadrivalent, PF 0 completed Heidi Steele, [place] null, [facility] 02/10/2023 11:22:48 COVID-19, mRNA, LNP-S, PF, 30 mcg/0.3 mL dose 1 completed Heidi Steele MA null, [facility] 02/10/2023 11:22:48 COVID-19, mRNA, LNP-S, PF, 30 mcg/0.3 mL dose 1 completed Heidiphillip SteeleMJ null, [facility] 02/10/2023 11:22:48 pneumococcal polysaccharide PPV23 6 completed Heidi Steele, [place] null, [facility] 02/10/2023 11:22:48 Tdap 9 completed Heidi Steele, [place] null, [facility] 02/10/2023 11:22:48 Influenza, split virus, quadrivalent, PF 8 completed Heidi Malcolm MA null, [facility] 02/10/2023 11:22:48 COVID-19, mRNA, LNP-S, PF, 30 mcg/0.3 mL dose 2 completed Heidi Steele, [place] null, [facility] 02/10/2023 11:16:21 COVID-19, mRNA, LNP-S, PF, 30 mcg/0.3 mL dose, kassidy-sucrose 2 completed Heidi Steele, [place] null, [facility] 02/10/2023 11:16:21 COVID-19, mRNA, LNP-S, bivalent, PF, 50 mcg/0.5 mL or 25mcg/0.25 mL dose 2 completed Heidi Steele, [place] null, [facility] 02/10/2023 11:16:21 Influenza, split virus, trivalent, PF 7 completed MJ Latif, [facility] 02/10/2023 11:16:21 Influenza, MDCK, quadrivalent, PF 3 completed MJ Latif, [facility] 02/10/2023 11:22:48 Influenza, MDCK, quadrivalent, PF 2 completed MJ Latif, [facility] 02/10/2023 11:22:48 Influenza, split virus, quadrivalent, PF 6 completed MJ Latif, [facility] 02/10/2023 11:22:48 Influenza, split virus, trivalent, PF 4 completed LOPEZ Link, [facility] 02/19/2024 13:45:48 Influenza, split virus, trivalent, preservative 2 completed Patito reilly, [facility] 01/14/2020 15:48:49 Tdap 9 completed Patito reilly [facility] 01/14/2020 15:48:48 Past Encounters Encounter ID Performer Location Encounter Start Date Encounter Closed Date Diagnosis/Indication Diagnosis SNOMED-CT Code Diagnosis ICD10 Code Diagnosis Note [id number] BETITO ZAVALA MD Main Office [address] [facility] [address] [place] [address] 04/26/2024 09:43:41 04/26/2024 10:19:39 Chronic kidney disease stage 3B 936205026 N18.32 - creatine is 1.94 and GFR is 28- pt was last following with renal regularly, was seen on 01/26/2024> nephrology wanted to start patient on farxiga however medication denied by insurance (per patient)- ordered BMP Hyperkalemia 91863726 E8 7.5 - most recent potassium levels was 5.7 on 01/23/2024- lokelma was not approved by insurance- pt is currently taking kaycelate weekly Hypertensi ve renal disease 87038357 I12.9 - elevated- BP today 148/83> patient has not taking her PO medication this morning therefore expected to have elevated blood pressure- was previously on lisinopril but medication stopped by nephrologi st due to hyperkalem ia and renal tubular acidosis- c/w on amlodipine 10mg- RTC in 6 months Pt is counselled [...] your ankles.>Milligan ve trouble with your vision. Mixed hyperlipidemia 267 567197 E78.2 - at goal- currently on ASA and rosuvastat in 20mg QD- most recent lipid panel done on 06/09: cholestero l-115, triglyceri naveed-133, HDL-48, LDL-40- ordered repeat levels Pt counselled on:- Eat a heart-heal thy [...] l levels.- Eat more fruits and veggies. Long-term current use of insulin 039286866 Z79.4 Gastroesop hageal reflux disease 102920385 K21.00 - worsened after starting mounjaro- pt provided wtih famotidine 20mg as needed The following lifestyle changes are recommende d and counseled : -Losing weight: Losing weight helps people who are overweight to reduce acid reflux. -Raising the head of your bed six to eight inches -Avoiding foods that trigger symptoms ? Avoid excessive caffeine, chocolate, alcohol, peppermint , and fatty foods. Renal diso rder due to type 2 diabetes mellitus 783457868 E11.21 - not well controlled , worsened- HbA1c is 12.1- c/w insulin lispro 8 units BID- c/w tresiba 10 units nightly- c/w Mounjaro 5mg SQ weekly- pt follows with diabetic specialist in the clinic- diabetic eye exam: 10/23/2023 -> positive Fatigue 47202936 R53.83 Z00.00 Hyperlipidemia 72616063 E78.5 Z00.00 FASTING Health Concerns Section Related Observation LastModified by Organization Detai ls LastModified Time None Recorded Concern Status LastModified by Organization Details LastModified Time None Recorded Payers Encounter Date Sequence Insurance Name Policy Number Policy Wooten Covered Member ID Wooten Member ID Guarantor Name 04/26/2024 1 [facility] [id number] Annabella Ramirez [id number] [facility] Annabella Ramirez Notes Date Note Type Note Provider Name and Address Organization Details Recorded Time 04/26/2024 text/html GERD RefluxRepor serafin bypatient.Symptomspo stprandial pain Quality:burning Severity:worsening Duration:present for 1-6 months Onset/Timing:occurs at night/while sleeping; occurs immediately after meals Context:non-smoker; no drug/alcohol abuse; no drug alcohol withdrawal; not related to food/drink Aggravating Factors:worsened by food Associated Symptoms:no frequent coughing; no feeling of fullness/mass in throat; no hoarseness; no food getting stuck; no belching/burping; no nausea; no vomiting; not vomiting blood; no shortness of breath; no chest pain; no heartburn; no difficulty swallowing; no pain when swallowing; no bad taste; no decreased appetite; no weight loss; no black/tarry stools; no fatigue; no throat pain;regurgitationHy pertension F/UReported bypatient.Notes:K[place]a ent here for follow-up of elevated blood pressure. [...] damage: yes (CKD). Annabella Ramirez is a 63 year old F who presented to the clinic for follow-up on her chronic conditions. 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 Lisinopril has been stopped and no blood pressure medications were given in substitute. Pt has been following with nephrology. Pt mentions her vision is doing much better. She is now able to drive. Needs to start getting eye injections in the right eye. Will be making appoitment with retinal specialist. Patient is following with our clinical director for diabetes. Patient has been having a hard time getting GLP-1s approved by insurance. Has now been able to start Mounjaro. BETITO ZAVALA MD [address], [address], [facility] [place], [place] 04/26/2024 10:40:45 OBGyn Episode No OBEpisode recorded.
--- OUTSIDE RECORDS SUMMARY | 2024-05-24 16:22 | XMS_ITS ---
Author Organization [facility] Address [address] [place] [id number] Care Team Providers Care Jewel Bearing Broacher Name Role Phone LUCAS SMITH, BETITO Primary Care Provider Nahedv Krystal Bah Unavailable [phone] REASON FOR VISIT ULTRA-check fibroids Encounters Encounter Location Date Provider Diagnosis [facility] [address] [address] 02/17/2023 Krystal Kwong Plan Of Treatment No Information Progress Notes * LINDSEY BATESOB: [birth year] (63 yo F)Acc No.[id number]:02/17/2023 PROGRESS NOTES Patient:?ANNIKA BATES Appointment Provider:?Krystal edwards M.D. :1960???Age:62 Y???Sex:Female D ate:02/17/2023 Address:[address] [place], [place] [id number] Pcp:BETITO ZAVALA MD Subjective: * Chief Complaints: * ???1. ULTRA-check fibroids. * Medical History:? Objective: * Vitals:? Assessment: Plan: * Treatment: * Images: Billing Information: * Visit Code:? * Procedure Codes:? * Electronic signature of Herrera Kwong MD on 05/24/2024 at 04:21 PM EST Sign off status: Pending * Appointment Provider:?Krystal Kwong M.D. Date:?02/17/2023 Generated for Dionte harris/Bennett/eTransmitting on:?05/24/2024 04:21 PM EST
--- OUTSIDE RECORDS SUMMARY | 2024-05-24 16:22 | XMS_ITS ---
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 Name Role Phone LUCAS SMITH, BETITO Primary Care Provider Nahedjustin mackenzie Krystal Kwong Unavailable [phone] Allergies Allergen (clinical drug ingredient) Drug/Non Drug Allergy documented on EMR Reaction Allergy Type Onset Date Status amoxicillin Amoxicillin Unknown Drug Allergy Act leia Substance with sulfonamide structure and antibacterial mechanism of action (substance) Sulfa Antibiotics Unknown Drug Allergy Active REASON FOR VISIT Annual PIT TANNER Physical Encounters Encounter Location Date Provider Diagnosis [facility] [address] [address] 02/09/2024 Krystal Kwong Plan Of Treatment No Information Progress Notes * JEANNETTE BATES: [birth year] (63 yo F)Acc No.[id number]:02/09/2024 PROGRESS NOTES Patient:?ANNIKA BATES Appointment Provider:?Krystal edwards M.D. :1960???Age:63 Y???Sex:Female D ate:02/09/2024 Address:[address] [place], [place] [id number] Pcp:BETITO ZAVALA MD Subjective: * Chief Complaints: * ???1. Annual PIT TANNER Physical. * Medical History:?Unspecified abnormal cytological findings in specimens from cervix uteri, Candidiasis of vulva and vagina, Other specified diabetes mellitus without complications, Hypothyroidism, unspecified, Acne, unspecified, Malignant neoplasm of overlapping sites of right female breast, Other acne, Postmenopausal bleeding, Excessive and frequent menstruation with regular cycle, Leiomyoma of uterus, unspecified, Type 2 diabetes mellitus with unspecified complications, Hyperparathyroidism, unspecified, Vitamin D deficiency, unspecified. 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 F/U Bilateral Mammo done 02/2015.?LMP and menses?2011 Liliya.? Control:?None.?Menopause: ?Began at age: ?50 ???Colonoscopy?yes 01/2014.?Bone Density:?10/21/22, 10/01/18.? * OB History:?Total pregnancies?0.? * Allergies:?Amoxicillin: Manny rgy, Sulfa Antibiotics: Allergy. Objective: * Vitals:? Assessment: Plan: * Treatment: * Images: Billing Information: * Visit Code:? * Procedure Codes:? * Electronic signature of Herrera Kwong MD on 05/24/2024 at 04:21 PM EST Sign off status: Pending * Appointment Provider:?Krystal Kwong M.D. Date:?02/09/2024 Generated for Dionte harris/Bennett/Sandi on:?05/24/2024 04:21 PM EST
--- OUTSIDE RECORDS SUMMARY | 2024-05-24 16:22 | XMS_ITS | Data Portability ---
Author Organization [facility], Main Office Address [address] [facility] [address] [place] [phone] Care Team Providers Care Website Designer Name Role Phone JOSEGALDINOLI Feeder Loader [phone] FELICITA RAMIREZ Geodetic Advisor LIBIA COELHO Overlock Sleeve Setter ANUM BOO Escape Wheel Tooth Cutter MADELINE MESSER Primary Care Provider Assessment Encounter Date Assessment Date Assessment LastModified by Organization Details LastModified Time 11/10/2023 11/10/2023 This service was provided using telemedicine. Patient consented to video & audio visit Patient was located in the [facility]. Provider was located in the office. No [...] Not available Not available [id number] 2024 01:00P Ruel MESSER MD Not available Not available Not available Lab HbA1c (hemoglob in A1c), blood 2024 025 DARIUSZ [facility] (Centralized Electronic Ordering - All Locations), Patient Can Go To The Location Of Their Choice, [id number] 04/26/2024 10:17:21 ALT (alanine aminotran sferase), serum or plasma 2024 025 DARIUSZ [facility] (Centralized Electronic Ordering - All Locations), Patient Can Go To The Location Of Their Choice, [id number] 04/26/2024 10:40:17 lipid panel, serum 2024 025 DARIUSZ [facility], [address], [place], [address], 04/26/2024 10:17:19 BMP, serum or plasma 2024 025 DARIUSZ [facility], [address], [place], [address], 04/26/2024 10:17:18 CBC w/ auto diff 2024 025 DARIUSZ [facility], [address], [place], [address], 04/26/2024 10:17:18 TSH, ultra-sen sitive, serum 2024 025 DARIUSZ [facility], [address], [place], [address], 04/26/2024 10:17:21 HbA1c (hemoglob in A1c), blood 2023 024 DARIUSZ [facility] (Centralized Electronic Ordering - All Locations), Patient Can Go To The Location Of Their Choice, [id number] 01/24/2024 06:09:20 BMP, serum or plasma 2023 024 DARIUSZ [facility] (Centralized Electronic Ordering - All Locations), Patient Can Go To The Location Of Their Choice, [id number] 01/24/2024 06:09:20 Referral ENT surgery referral - mri brain showed right sided effusion in the mastoid indicativ e of possible mastoidit is. pt asymptoma tic, no symptoms of ear infection . 2023 024 [email or web address] [facility] , [address], [place], [address], 11/21/2023 11:42:35 Procedures None recorded. Surgeries None recorded. Imaging None recorded. Medication Orders insulin lispro (U-100) 100 unit/mL subcutane ous pen 2024 025 [facility] #[id number], [address] [place], [address], 04/26/2024 10:15:50 rosuvasta tin 20 mg tablet 2024 025 [facility] #[id number], [address] [place], [address], 04/26/2024 10:15:50 famotidin e 20 mg tablet 2024 025 [facility] #[id number], [address] [facility] [place], [address], 04/26/2024 10:15:50 ciproflox acin 0.2 % ear drops in a dropperet te 2023 024 DARIUSZ Not available 02/19/2024 13:46:41 Patient TargetsNo targets recorded. Patient Instructions Encounter Date Encounter Id Patient Instructions Last Modified By Organization Details Last Modified Time 10/27/2023 [id number] medicines to radha id with kidney disease: care instructions Not available 10/27/2023 09:29:23 11/10/2023 [id number] mastoiditis: car e instructions Not available 11/10/2023 16:22:17 04/26/2024 [id number] hyperkalemia: ca re instructions Not available 04/26/2024 10:15:47 gastroesophageal reflux disease (GERD): care instructions Not available 04/26/2024 10:15:47 Reason for Referral ENT Surgery Referral for Chr onic mastoiditis mri brain showed right sided effusion in the mastoid indicative of possible mastoiditis. pt asymptomatic, no symptoms of ear infection. Referring Physician: Madeline Messer, Family Medicine, Encounter Date: 11/10/2023 Results Created Date Observation Date Name Description Value Unit Range Abnormal Flag Note LastModifiedBy Organization Detail LastModifiedTime 01/23/20 24 01/24/2024 BASIC METAB OLIC PANEL (8) glucose 277 mg/dL 70-99 above high normal Not Available [facility] ([facility]) [address] [facility] [place], [address], 01/24/2024 06:09:19 01/23/20 24 01/24/2024 BASIC METAB OLIC PANEL (8) BUN 41 mg/dL 8-27 above high normal Not Available [facility] ([facility]) [address] [facility] [place], [address], 01/24/2024 06:09:19 01/23/20 24 01/24/2024 BASIC METAB OLIC PANEL (8) creatinine 1.94 mg/dL 0.57-1 .00 above high normal Not Available [facility] ([facility]) [address] [facility] [place], [address], 01/24/2024 06:09:19 01/23/20 24 01/24/2024 BASIC METAB OLIC PANEL (8) eGFR 28 mL/mi n/1.7 3 >59 below low normal Not Available [facility] ([facility]) [address] [facility] [place], [address], 01/24/2024 06:09:19 01/23/20 24 01/24/2024 BASIC METAB OLIC PANEL (8) BUN/creatini ne ratio 21 12-28 normal Not Available [facility] ([facility]) [address] [place], [address], 01/24/2024 06:09:19 01/23/20 24 01/24/2024 BASIC METAB OLIC PANEL (8) sodium 136 mmol/ L 134-14 4 normal Not Available [facility] ([facility]) [address] [facility] [place], [address], 01/24/2024 06:09:19 01/23/20 24 01/24/2024 BASIC METAB OLIC PANEL (8) potassium 5.7 mmol/ L 3.5-5. 2 above high normal Not Available [facility] ([facility]) [address] [place], [address], 01/24/2024 06:09:19 01/23/2001/24/2024 BASIC METAB OLIC PANEL (8) chloride 104 mmol/ L 96-106 normal Not Available [facility] ([facility]) [address] [place], [address], 01/24/2024 06:09:19 01/23/2001/24/2024 BASIC METAB OLIC PANEL (8) carbon dioxide, total 18 mmol/ L 20-29 below low normal Not Available [facility] ([facility]) [address] [place], [address], 01/24/2024 06:09:19 01/23/2001/24/2024 BASIC METAB OLIC PANEL (8) calcium 9.4 mg/dL 8.7-10 .3 normal Not Available [facility] ([facility]) [address] [place], [address], 01/24/2024 06:09:19 01/23/2001/24/2024 HEMOG LOBIN A1C hemoglobin A1C 12.1 % 4.8-5. 6 above high normal Predi abete s: 5.7 - 6.4 Diabe diogo: >6.4 Glyce jyothi contr ol for adult s with diabe diogo: <7.0 Not Available [facility] ([facility]) [address] [place], [address], 01/24/2024 06:09:20 11/06/1911/03/2023 MRI, brain , w/o contr ast No observ ation record ed. [facility] [place] [address] [address], [place], [address], 2023 15:07:16 Result Notes None recorded. Problems Name Problem SNOMED Code Status Onset Date Resolution Date Notes Provider Name and Address Organization Details Recorded Time Patient status finding [id number] Completed 201201/25/2016 RECORDED 07/31/19 13 2:46PM BY SHAZIA STEELE, OFFICE VISIT MJ Latif, [facility] 6 08:43:20 Primary malignan t neoplasm of female breast 31322756 Completed 201203/26/2019 DX 2011 RIGHT BREAST TX WITH LUMPECTO MY, 3 LYMPH NODES REMOVED, THEN RADIATIO N FOLLOWED BY DR SABILLON FOR ONCOLOGY Sendy Ulloa PA-C [address] [facility] [address], [place], [address] , [facility] 0 14:25:42 Screenin g for malignan t neoplasm of colon Completed 201210/01/2013 RECORDED 05/29/19 13 1:01PM BY KANE ABURTO MA, ANNOTATI ON/ADDEN DUM MJ Latif, [facility] 6 08:43:35 Screenin g for malignan t neoplasm of colon Completed 201201/25/2016 RECORDED 09/28/19 13 2:32PM BY FISH LUGO , LAB REQ MJ Latif, [facility] 6 08:43:35 Type 2 diabetes mellitus without complica tion 713812427 Completed 201201/23/2017 RECORDED 07/31/19 13 2:37PM BY SHAZIA STEELE, OFFICE VISIT Garrett reilly [facility] 7 12:03:28 Type 2 diabetes mellitus without complica tion 022376642 Completed 201210/01/2013 IMPRESSI ON: NEEDS TO ADD EXERCISE AND LOWER CARBS; RECORDED 05/29/19 13 2:07PM BY BRIAN RIGGS PA-C, ANNOTATI ON/ADDEN DUM Garrett reilly [facility] 7 12:03:28 Uncontro lled type 2 diabetes mellitus 919046788 Completed 201201/25/2016 STORY: LABS 04/16/12 A1C 10.9.; [...] BY GARRETT Curtis MD, OFFICE VISIT MJ Latif, [facility] 6 08:43:40 Blood chemistr y outside referenc e range 082326321 Completed 201207/25/2016 RECORDED 08/21/19 13 3:13PM BY GARRETT Curtis MD, PHONE ENCOUNTE R Garrett Chen-Munira reilly [facility] 7 11:20:56 Influenz a vaccine needed 81060535839 06 Completed 201210/01/2013 RECORDED 05/29/19 13 1:01PM BY KANE ABURTO MA, ANNOTATI ON/ADDEN DUM Sendy Ulloa PA-C [address] [address], [place], [address] , [facility] 6 14:50:07 Adult health examinat ion Completed 201201/25/2016 IMPRESSI ON: PT TO SET UP PAP, MAMMO UTD, GETS EVERY 6 MONTHS; RECORDED 08/16/19 13 11:39AM BY POLY BANDA, HISTORIC AL SUMMARY MJ Latif, [facility] 6 08:43:30 Essentia l hyperten cyndi 54227823 Completed 201210/01/2013 RECORDED 05/29/19 13 1:02PM BY KANE ABURTO MA, ANNOTATI ON/ADDEN DUM Ann-Marie Carlos reilly [facility] 0 11:29:25 Laborato ry procedur e performe d 629607638 Completed 201301/25/2016 RECORDED 05/24/19 14 2:25PM BY KEAGAN ZEPEDA, LAB REQ MJ Latif, [facility] 6 08:43:25 Disorder of thyroid gland 18428381 Active 2012 WAS ON MED, OFF NOW MJ Latif, [facility] 3 11:15:56 Vitamin D deficien cy 18350414 Completed 201210/01/2013 IMPRESSI ON: WAS ON 50,OOO UNITS AND NOW ON DAILY, LEVEL WAS LOW LAST YEAR; RECORDED 05/29/19 13 1:01PM BY KANE ABURTO MA, ANNOTATI ON/ADDEN DUM Sendy Ulloa PA-C [address] [facility] [address], [place], [address] , [facility] 6 14:50:07 Screenin g for malignan t neoplasm of colon Completed 201210/28/2013 RECORDED 05/29/19 13 1:01PM BY KANE ABURTO MA, ANNOTATI ON/ADDEN DUM MJ Latif, [facility] 6 08:43:35 Influenz a vaccine needed 33962351958 06 Completed 201210/28/2013 RECORDED 05/29/19 13 1:01PM BY KANE ABURTO MA, ANNOTPORTILLO ON/ADDEN DUM Sendyzuleika Ulloa PA-C [address] [facility] [address], [place], [address] , [facility] 6 14:50:07 Essentia l hyperten cyndi 32133416 Completed 201210/28/2013 RECORDED 05/29/19 13 1:02PM BY KANE ABURTO MA, ANNOTATI ON/ADDEN DUM Ann-Marie Gonzalez null, [facility] 0 11:29:25 Vitamin D deficien cy 31642206 Completed 201210/28/2013 IMPRESSI ON: WAS ON 50,OOO UNITS AND NOW ON DAILY, LEVEL WAS LOW LAST YEAR; RECORDED 05/29/19 13 1:01PM BY KANE ABURTO MA, ANNOTATI ON/ADDEN DUM Sendy Ulloa PA-C [address] [facility] [address], [place], [address] , [facility] 6 14:50:07 Postmeno pausal bleeding 09372773 Completed 07/25/2016 Garrett reilly [facility] 7 11:21:51 Body mass index 30+ - obesity 127470047 Completed 07/25/2016 Garrett reilly [facility] 7 11:22:07 Renal disorder due to type 2 diabetes mellitus 396060128 Active 2016 Not Available [facility] 0 14:09:52 Chronic kidney disease stage 1 727249053 Completed 201603/27/2017 Sendy Ulloa PA-C [address] [facility] [address], [place], [address] , [facility] 4 09:37:25 Hyperten sive renal disease 84977322 Active 2016 Not Available [facility] 0 14:09:52 Chronic kidney disease stage 2 874603276 Completed 201703/11/2019 Sendy Ulloa PA-C [address] [facility] [address], [place], [address] , [facility] 9 10:45:46 Hyperlip idemia 10927128 Completed 201708/04/2022 MADELINE MESSER MD [address] [facility] [address], [place], [address] , [facility] 3 19:48:43 Chronic kidney disease stage 3 due to type 2 diabetes mellitus 80536340213 5 Completed 201703/26/2019 Ann-Marie reilly [facility] 0 16:06:25 Obesity 595889161 Active 2018 MJ Latif, [facility] 3 11:15:56 Chronic kidney disease stage 3 612389405 Completed 201810/23/2020 Sendy Ulloa PA-C [address] [facility] [address], [place], [address] , [facility] 1 11:24:48 Microalb uminuria 243301291 Active 2019 Not Available [facility] 0 14:09:52 Noncompl iance with treatmen t 6893794 Active 2019 MJ Latif, [facility] 3 11:15:56 Chronic kidney disease stage 3B 848238108 Active 2020 MJ Latif, [facility] 3 12:53:44 Malignan t tumor of breast 443655110 Active 2010 MJ Latif, [facility] 3 12:53:44 Mixed hyperlip idemia 942376931 Active 2022 MJ Latif, [facility] 3 11:15:56 Long-ter m current use of insulin 011213400 Active 2022 MJ Latif, [facility] 3 11:15:56 Hyperkal emia 91093814 Active 2022 Justo Medeiros MD [address] [facility] [address], [place], [address] , [facility] 3 04:35:12 Notes:Some problems listed i n Documents: #[id number], #[id number], #[id number], #[id number] could not be added to this patient's chart. Please review these documents and add these problems to the patient's chart manually as needed. Problem Notes None recorded. Procedures Surgical History Date Name Laterality Status Provider Name and Address Organization Details Recorded Time 08/28/19 24 Most Recent Mammogram completed Renay Lee [facility] 08/28/2023 11:14:34 05/25/19 24 diabetic retinopathy screening completed Renay Lee [facility] 06/30/2023 08:47:36 08/06/19 23 Diabetic Foot Exam (Monofilament) completed MADELINE MESSER MD [address] [facility], [place], [address], [facility] 08/05/2022 13:30:00 03/20/19 22 Date of Last Pap Smear completed Shazia Steele [facility] 04/08/2022 13:03:50 10/24/19 21 Diabetic Foot Exam (Monofilament) completed Mikaela Issa MA [facility] 10/23/2020 10:35:13 10/20/19 21 Diabetic Foot Exam (Monofilament) completed Nanette Tapia MA [facility] 10/19/2020 15:17:02 05/01/19 21 Diabetic Foot Exam (Monofilament) cancelled Mikaela Issa MA [facility] 05/01/2020 11:27:35 02/14/20 20 Mammogram screening completed Patito Banda [facility] 02/17/2020 14:55:16 03/26/19 20 Diabetic Foot Exam (Monofilament) completed Sendy Ulloa PA-C [address] [facility] [address] [facility], [place], [address], [facility] 03/26/2019 14:15:41 03/11/20 19 Diabetic Foot Exam (Monofilament) completed Olga Jacob [facility] 03/11/2019 10:24:03 06/05/19 19 Diabetic Foot Exam (Monofilament) completed Sendy Ulloa PA-C [address] [address], [place], [address], [facility] 06/04/2018 15:02:54 12/27/19 18 Date of Last Colonoscopy completed Patito Banda [facility] 12/28/2017 10:11:50 12/27/19 18 Colonoscopy completed Patito Banda [facility] 12/28/2017 10:11:45 08/22/19 18 Diabetic Foot Exam (Monofilament) completed Jessica Solorzano MA [facility] 08/21/2017 11:01:40 08/05/19 18 Excision of Melanoma completed Halle Piña [facility] 08/18/2017 10:48:25 05/01/19 18 biopsy completed Shyanne hernandez MA [facility] 01/06/2020 08:53:48 03/20/19 16 Endometrial Ablation completed Shyanne hernandez MA [facility] 03/27/2017 13:13:32 03/20/19 15 Ultrasound breast limited completed Shyanne hernandez MA [facility] 03/27/2017 13:06:30 Breast Surgery completed Shazia sandhu MA [facility] 07/20/2015 11:06:21 Lesion destruction completed Shazia Steele MA [facility] 07/31/2017 13:52:53 Imaging Results Imaging Date Name Status LastModified by Organiz ation Details LastModified Time 11/03/2023 MRI, brain, w/o contrast completed [facility] [place] [address] [address], [place], [address], 2023 15:07:16 Procedure Notes None recorded. Medical Equipment None Reported. Allergies Allergen ID Allergen Name Allergen Category Reaction Reaction Severity Criticality Documentation Date Start Date Code Code System Note Provider Name and Address Organization Details Recorded Time Substance with sulfonami de structure and antibacte rial mechanism of action (substanc e) medicatio n Not available Not available Not available 06/02/20142012 19806 8003 SNOMED Melissa reilly [facility] 5 14:00:40 21444 amoxicill in medicatio n Not available Not available Not available 04/08/20222021 723 RxNorm MJ Latif, [facility] 3 12:52:43 53505 potassium chloride medicatio n edema Not available Not available 04/22/2022 8591 RxNorm Not Available [facility] 3 17:07:33 4546 Product containin g penicilli n (product) medicatio n Not available Not available Not available 10/01/20132012 65270 8001 SNOMED Shyanne MJ Roca, [facility] 8 12:59:53 68599 Trulicity medicatio n nausea Not available Not available 06/23/2023 82818 96 RxNorm Sendyzuleika Ulloa PA-C [address] [facility] [address], [place] [address], [facility] 4 12:49:41 Medications Name Sig Start Date [...] Not Available Not Available Not Available Afluria 0954-3996 (PF) 45 mcg (15 mcg x 3)/0.5 [...] not started as of 11/05/19 23 This [facility] has it in stock Not Available Not [...] and Address Organization Details Last Updated DateTime 4 154.94 cm 31.9 kg/m2 38624.1 1 g 80 /min 100 % 100 % 97.4 [degF] 152 mm[Hg] 84 mm[Hg] Trista Vergara MA [facility] 4 09:16:16 Date Recorded Systolic blood pressure Diastolic blood pressure Provider Name and Address Organization Details Last Updated DateTime 10/27/2023 132 mm[Hg] 74 mm[Hg] MADELINE MESSER MD [address], [address], [facility] 10/27/2023 09:28:15 Date Recorded Body height Body mass index (BMI) Body weight Oxygen saturation Oxygen saturation in Arterial blood by Pulse oximetry Heart rate Body temperature Systolic blood pressure Diastolic blood pressure Provider Name and Address Organization Details Last Updated DateTime 5 154.94 cm 27.7 kg/m2 55762.2 9 g 100 % 100 % 86 /min 97.6 [degF] 148 mm[Hg] 83 mm[Hg] Shazia Steele MA [facility] 5 10:01:34 Social History Question Answer Notes LastModified by Organizat ion Details LastModified Time Tobacco Smoking Status Never Smoker Shazia Steele MA null, [facility] 07/20/2015 11:08:43 Do You Have An Advance Directive? No Information not available 03/27/2017 What Is Your Level Of Alcohol Consumption? None [email or web address] Information not available 07/20/2015 Is Blood Transfusion Acceptable In An Emergency? Yes [email or web address] Information not available 07/20/2015 What Is Your Level Of Caffeine Consumption? Occasional [email or web address] Information not available 07/20/2015 How Much Tobacco Do You Chew? None Information not available 07/25/2016 Are You Currently Employed? Yes [email or web address] Information not available 07/20/2015 What Type Of Diet Are You Following? REGULAR [email or web address] Information not available 07/20/2015 Which Illicit Or Recreational Drugs Have You Used? None Information not available 07/25/2016 Do You Or Have You Ever Used E-cigarettes Or Vape? 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 With Others (Mateusz) Information not available 03/27/2017 Do You Take Precautions To Prevent Distracted Driving? Yes Information not available 07/20/2015 How Often Do [...] 01/06/2020 Have You Recently Traveled To A [place] [address] High Risk Area Or Gathering In The Last 10 Days? No Information not available 10/19/2020 What Was The Date Of Your Most Recent Tobacco Screening? 11/10/2023 Information not available 11/10/2023 How Many Children Do You Have? 0 Information not available 07/20/2015 Do You Use Protection During Sex? No Information not available 03/27/2017 Seat Belts Used Routinely Yes [email or web address] Information not available 07/20/2015 Are You Sexually Active? Yes Information not available 03/27/2017 Smoke Alarm In Home Yes [email or web address] Information not available 07/20/2015 At What Age [...] 11/10/2023 Do You Use Sunscreen Routinely? Yes [email or web address] Information not available 07/20/2015 How Many Years [...] you able to care for yourself? Yes [email or web address] Information not available 07/20/2015 What is your exercise level? Occasional 2-3 times a week rides her stationary bike Information not available 04/08/2022 Mental Status None [...] split virus, trivalent, preservative [facility] 15:48:48 Influenza, split virus, quadrivalent, preservative 7 completed MJ Latif [facility] 02/10/2023 11:22:48 Influenza, split virus, quadrivalent, PF 9 completed MJ Latif [facility] 02/10/2023 11:22:48 Influenza, MDCK, quadrivalent, PF 0 completed MJ Latif [facility] 02/10/2023 11:22:48 COVID-19, mRNA, LNP-S, PF, 30 mcg/0.3 mL dose 1 completed MJ Latif [facility] 02/10/2023 11:22:48 COVID-19, mRNA, LNP-S, PF, 30 mcg/0.3 mL dose 1 completed MJ Latif [facility] 02/10/2023 11:22:48 pneumococcal polysaccharide PPV23 6 completed MJ Latif [facility] 02/10/2023 11:22:48 Tdap 9 completed Shazia Steele MJ melba, [facility] 02/10/2023 11:22:48 Influenza, split virus, quadrivalent, PF 8 completed Shazia Steele MJ melba, [facility] 02/10/2023 11:22:48 COVID-19, mRNA, LNP-S, PF, 30 mcg/0.3 mL dose 2 completed Shazia Steele MJ melba [facility] 02/10/2023 11:16:21 COVID-19, mRNA, LNP-S, PF, 30 mcg/0.3 mL dose, kassidy-sucrose 2 completed Shazia Steele MJ melba [facility] 02/10/2023 11:16:21 COVID-19, mRNA, LNP-S, bivalent, PF, 50 mcg/0.5 mL or 25mcg/0.25 mL dose 2 completed MJ Latif, [facility] 02/10/2023 11:16:21 Influenza, split virus, trivalent, PF 7 completed MJ Latif, [facility] 02/10/2023 11:16:21 Influenza, MDCK, quadrivalent, PF 3 completed MJ Latif [facility] 02/10/2023 11:22:48 Influenza, MDCK, quadrivalent, PF 2 completed MJ Latif, [facility] 02/10/2023 11:22:48 Influenza, split virus, quadrivalent, PF 6 completed MJ Latif, [facility] 02/10/2023 11:22:48 Influenza, split virus, trivalent, PF 4 completed LOPEZ Link, [facility] 02/19/2024 13:45:48 Influenza, split virus, trivalent, preservative 2 completed Pattio Banda melba, [facility] 01/14/2020 15:48:49 Tdap 9 completed Patito Solo reilly, [facility] 01/14/2020 15:48:48 Past Encounters Encounter ID Performer Location Encounter Start Date Encounter Closed Date Diagnosis/Indication Diagnosis SNOMED-CT Code Diagnosis ICD10 Code Diagnosis Note [id number] [facility] erce [address] [facility] [place] [address] 04/16/2012 00:00:00 [id number] auto[employer] erce [address] [facility] [place] [address] 05/28/2012 00:00:00 [id number] auto[employer] erce [address] [facility] [place] [address] 07/30/2012 00:00:00 [id number] [facility] [address] [place] [address] 07/20/2015 10:51:11 07/20/2015 11:46:38 Adult health examination 039285467 Z00.00 utd on her screening except due for pneumovax due to DM, never had Uncontroll ed type 2 diabetes mellitus 633030034 E11.65 very poorly controlled , followed by but it does not seem like she is making progress, I introduced her to Sendy, she will meet with her in a month to discuss DM care, will stay with Dr Elaine for now History of malignant neoplasm of breast 030475798 Z85.[address] Sabillon in 09/02 will be 5 years, is on tamoxifen Administra tion of pneumococcal vaccine 06181245 Z23 Postmenopa usal bleeding 66860316 N95.0 after 4.5 years! is on tamoxifen, pt will set up appt [facility] Dr Tolbert for bruno,s he knows this is important. [id number] Franchisee Gladiator eliz Main Office [address] [place] [address] 08/31/2015 12:52:30 08/31/2015 14:35:59 Uncontrolled type 2 diabetes mellitus 395038353 E11.65 Restart glucose monitoring TID. Referral to the GI and nutritioni st due to gastropare sis symptoms. Start Victoza at smallest dose as discussed. Increase januvia to 100 mg daily. Continue Glipizide and Metformin the same. If can not tolerate Victoza , will start insulin injections to improved glycemic control. F/u 4 weeks. Body mass index 30+ - obesity 818930383 Z68.30 [id number] Garrett KelleybartGetGlueMunira eliz Main Office [address] [facility] 207 [facility] [place] [address] 09/28/2015 13:36:31 09/28/2015 14:56:25 Uncontrolled type 2 diabetes mellitus 538808830 E11.65 Continue glucose monitoring TID. Start Victoza at smallest dose as discussed. stop januvia to 100 mg daily. Continue Glipizide and Metformin the same. If can not tolerate Victoza , will start insulin injections to improved glycemic control. F/u 4 weeks with repeat A1c. Body mass index 30+ - obesity 610099927 Z68.30 [id number] Justo Medeiros MD Main Office [address] [facility] 207 [facility] [place] [address] 11/02/2015 10:41:40 11/02/2015 11:54:49 Uncontrolled type 2 diabetes mellitus 784853613 E11.65 A1c is improved but not at [...] will be restarted at 100 mg daily. [id number] Garrett KelleybartGetGlueMunira eliz Main Office [address] [facility] 207 [place] [address] 01/04/2016 09:54:34 01/04/2016 10:39:26 Uncontrolled type 2 diabetes mellitus 647461690 E11.65 restart Trulicity at 0.75 mg weekly. Continue testing glucose 2-3 times daily. Continue Metfromin and switch to Glipizide ER 10 mg daily. F/u 6-8 weeks. [id number] Garrett wellington Main Office [address] [facility] [address] [place] [address] 01/25/2016 09:34:48 01/25/2016 10:20:32 Type 2 diabetes mellitus without complication 446167632 E11.9 doing better with control, needs to add exercise, use rowing machine! followup with Sendy for DM tx end of month ,e for PE in 6 months Essential hypertension 25559569 I10 well controlled continue meds [id number] Garrett garciao Main Office [address] [facility] 207 [place] [address] 02/15/2016 10:42:19 02/15/2016 11:51:10 Uncontrolled type 2 diabetes mellitus 560143017 E11.65 Glucose control is much improved. Pt. tolerates Trulicity well. Will continue at small dose Lower Glipizide ER to 10 mg daily and continue Metformin at 500 mg daily. F/u with repeat A1c in 6 weeks. Goal A1c is under 7%. [id number] Garrett wellington Main Office [address] [facility] [address] [place] [address] 07/25/2016 10:52:56 07/25/2016 11:40:33 Adult health examination 768594387 Z00.00 utd on mammogram and colonoscop y and pap, due for colonscopy next year, at 4 year jono not active, does not like exercise. Type 2 umang betes mellitus without complication 205334452 E11.9 pt thinks she has nausea from [...] istory of primary malignant neoplasm of breast 890083478 Z85.3 mammogram once a year, utd Essential hypertension 61581471 I10 well controlled continue meds Hypercholesterolemia 136 12363 E78.2 check fasting Uncontroll ed type 2 diabetes mellitus 958466153 E11.65 see above Dysfunctio nal uterine bleeding 41817626 N93.8 recent uterine ablation, no bleeding, is considered post menopausal . [id number] Garrett KelleyBenedict eliz Main Office [address] [facility] [address] [place] [address] 11/28/2016 13:12:37 11/28/2016 14:17:41 Body mass index 25-29 - overweight 205456063 Z68.29 Continue working on increasing exercise and improving diet. Renal diso rder due to type 2 diabetes mellitus 494307952 E11.22 Diabetes well controlled with hgbA1c of [...] BP. Chronic ki dney disease stage 1 792329517 N18.1 Pt. is on Lisinopril and has stable glucose and BP. Overweight 952035319 E66 .3 [id number] Garrett Treasure eliz Main Office [address] [facility] 207 [place] [address] 01/23/2017 11:19:39 01/23/2017 12:09:14 Chronic kidney disease stage 1 909841515 N18.1 see above Renal diso rder due to type 2 diabetes mellitus 782006476 E11.22 see above Skin lesion 25955348 L98 .9 ? wart of left earlobe, new for 3 months, pt to see dermatolog y Hypertensi ve renal disease 10207398 I12.9 well controlled continue meds nd will refer to renal for creatinine slowly elevating (1.3) and 2 family members with renal failure. Discuss with renal if lisinopril still best med for pt and workup to rule out any familial renal disorder. [id number] Justo Medeiros MD Main Office [address] [facility] [address] [place] [address] 03/27/2017 12:55:38 03/27/2017 14:23:59 Renal disorder due to type 2 diabetes mellitus 937218338 E11.22 Diabetes well controlled with hgA1c of [...] . Chronic ki dney disease stage 2 171279500 N18.2 repeat renal functions and microalbum in. BP is stable on Lisinopril . Body mass index 30+ - obesity 391642928 E66.01 Z68.30 BMI 30.4 encouraged lifestyle modificati on to include diet and exercise at least 45 mins x 3 -4 weekly [id number] Garrett wellington Main Office [address] [facility] [address] [place] [address] 07/31/2017 13:31:16 07/31/2017 14:19:54 Adult health examination 311822499 Z00.00 utd on mammogram and colonoscop y and pap, due for colonscopy next year, at 4 year jono not active, does not like exercise but is walking 4 times a week Chronic ki dney disease stage 2 854378631 N18.2 saw renal, they lowered her lisinopril and BP is well controlled . Personal h istory of primary malignant neoplasm of breast 508028801 Z85.3 mammogram once a year, utd Renal diso rder due to type 2 diabetes mellitus 722390721 E11.22 see above Essential hypertension 60881936 I10 well controlled continue meds Skin lesion 09130063 L98 .9 left earlobe, getting removed end of week [id number] Garrett wellington Main Office [address] [facility] [address] [place] [address] 08/21/2017 10:45:49 08/21/2017 11:57:03 Renal disorder due to type 2 diabetes mellitus 875397534 E11.22 Continue Metfromin and TRulicity. Lower GLipizide ER to 10 mg daily to avoid random hypoglycem ia. Pt. is advised to lower total calories and continue daily exercise by walking at least 30 minutes. F/u in 3 m. Pt. was also encouraged to look into coverage for [employer] system for continuing monitoring . Chronic ki dney disease stage 2 940393971 N18.2 repeat renal functions and microalbum in as requested by renal. BP is stable on Lisinopril . Body mass index 30+ - obesity 952972686 E66.01 Z68.32 encouraged lifestyle modificati on to include diet and exercise at least 45 mins x 3 -4 weekly Hyperlipid emia screening 505688660 Z13.220 Hypoglycemia 529118396 E 16.2 Lower Glipizide ER to 5 mg 2 po qd. If any more hypoglycem ia, will continue lowering to 5 mg daily. [id number] [facility] Main Office [address] [facility] 207 [place] [address] 12/18/2017 13:19:48 12/18/2017 14:12:24 Renal disorder due to type 2 diabetes mellitus 489425431 E11.22 Continue Metfromin 500 mg daily, lower GLipizide ER to 5 mg daily to avoid random hypoglycem ia. Continue Trulicity at 0.75 mcg dose weekly. Start Tradjenta 6 mg daily. Plan on decreasing or eliminatin g sulfontyur ea eventually to prevent hypoglycem ia. F/u 6-8 wks. Needs infl uenza immunization 551746638 Z23 Chronic ki dney disease stage 3 due to type 2 diabetes mellitus 2805588166 05 E11.22 N18.3 F/u with nephrologi st in May. Hypoglycemia 687239439 E 16.2 Lower Glipizide ER to 5 mg 1 po qd. If any more hypoglycem ia, will continue lowering to 2.5 mg daily. Body mass index 30+ - obesity 676654462 E66.01 Z68.33 encouraged lifestyle modificati on to include diet and exercise at least 45 mins x 3 -4 weekly [id number] Garrett [facility] Main Office [address] [facility] 207 [place] [address] 01/29/2018 10:38:20 01/29/2018 11:48:00 Hypertensive renal disease 38891950 I12.9 followed by renal Chronic ki dney disease stage 2 084407143 N18.2 saw renal, they lowered her lisinopril and BP is well controlled . Personal h istory of primary malignant neoplasm of breast 197307442 Z85.3 mammogram once a year, utd Well contr olled type 2 diabetes mellitus 700360337 E11.9 last A1C is 7.2 . continue meds and f/u with sendy [id number] Sendy Ulloa PA-C Main Office [address] [facility] 207 [facility] [place] [address] 06/04/2018 13:53:49 06/04/2018 15:09:33 Chronic kidney disease stage 3 due to type 2 diabetes mellitus 5484113882 05 E11.22 N18.3 F/u with nephrologi st in May. Body mass index 25-29 - overweight 807152333 E66.3 Z68.29 Continue working on increasing exercise and improving diet. [id number] Ann-Marie Gonzalez Main Office [address] [facility] 207 [facility] [place] [address] 10/08/2018 09:50:07 10/08/2018 10:56:18 Renal disorder due to type 2 diabetes mellitus 676561988 E11.22 A1c is increased due to weight gain and changes in activity and diet. Pt. is encouraged to lose weight. Continue the same meds and testing. F/u 3 m. Chronic ki dney disease stage 2 420258560 N18.2 F/u with renal. Lisinopril was increased to 7.5 mg daily. Body mass index 30+ - obesity 934439691 Z68.31 encouraged lifestyle modificati on to include diet and exercise at least 45 mins x 3 -4 weekly Hyperlipidemia 97961428 E78.00 Administra tion of viral vaccine 24567430 Z23 Obesity 418482203 E66.9 [id number] Sendy Ulloa PA-C Main Office [address] [facility] 207 [facility] [place] [address] 03/11/2019 10:15:27 03/11/2019 11:06:18 Renal disorder due to type 2 diabetes mellitus 129486740 E11.22 A1c is a bit above target. [...] m. Chronic ki dney disease stage 3 131983747 N18.3 continue ACEI. F/u with renal. Hyperlipidemia 89516336 E78.00 Follow low fat diet and repeat labs in 3 m. If LDL is still above 100, will add small dose of statin. [id number] Ann-Marie Gonzalez Main Office [address] [facility] [address] [place] [address] 03/26/2019 13:19:44 03/26/2019 14:18:18 Adult health examination 444686673 Z00.00 Pt. is recommende d to receive shingrix vaccine Chronic ki dney disease stage 3 due to type 2 diabetes mellitus 7402948191 05 E11.22 N18.3 Continue current meds. increase Trulicity to 1.5 mg weekly. F/u with nephrologi st at the end of March. Continue ACEI. F/u with nephrologi st as scheduled. repeat microalbum in. Hyperlipidemia 33695042 E78.00 Follow low fat diet. Lipid panel is within normal limits. Continue to monitor yearly. Hypertensi ve renal disease 93160944 I12.9 continue ACEI. BP is on target. Continue Lisinopril 5 mg PO daily. Obesity 903516667 E66.9 Continue low calorie/lo w carb diet. Increase exercise to 150 minutes per week. Personal h istory of primary malignant neoplasm of breast 697300861 Z85.3 Continue mammograms yearly and yearly [facility] PROST[facility] visits. Body mass index 30+ - obesity 935600244 Z68.30 encouraged lifestyle modificati on to include diet and exercise at least 45 mins x 3 -4 weekly [id number] Sendy Ulloa PA-C Telehealt h [address] [facility] [address] [place] [address] 01/06/2020 08:04:18 01/07/2020 11:20:28 Renal disorder due to type 2 diabetes mellitus 471457933 E11.22 Extremely high blood sugars. Pt. is [...] . Chronic ki dney disease stage 3 165768454 N18.30 continue acei. f/u with renal. Hyperlipidemia 81925045 E78.00 Follow low fat diet. start atorvastat in 40 mg. Uncontroll ed type 2 diabetes mellitus 533431061 E11.65 Noncomplia nce with treatment 4173574 Z91.19 [id number] Ann-Marie Gonzalez Main Office [address] [facility] 207 [place] [address] 02/28/2020 13:39:51 02/28/2020 15:03:32 Renal disorder due to type 2 diabetes mellitus 365967278 E11.22 Uncontroll ed type II DM with CKD stg 3. Pt. did not start Lantus. Advised to start at 10 u and increase in 1 week to 15 if am fasting is not under 100. Continue all other antidiabet ics. F/u 6 weeks. Repeat BMP. Chronic ki dney disease stage 3 376822188 N18.30 continue acei. f/u with renal. Hypertensi ve renal disease 87144507 I12.9 stable control. [id number] Ann-Marie Gonzalez Main Office [address] [facility] [address] [place] [address] 10/19/2020 14:58:45 10/19/2020 16:09:34 Adult health examination 108752069 Z00.00 Pt. is recommende d to receive shingrix vaccine, had covid vaccine, tdap up to date. Pt sees dentist and eye doctor. She needs to see anodize machine operator for pap and breast exam. Colonoscop y 2017 due 2022 Chronic ki dney disease stage 3 due to type 2 diabetes mellitus 8454802840 05 E11.22 Pt under care of , had eye exam 06/07, ? sees nephrologi st Had proteinuri a and elevated hgba1c of 13.5 last visit. Will recheck labs today as visit with is virtual. Given results, needs to discuss insulin with this week. Hypertensi ve renal disease 91716076 I12.9 continue ACEI. BP is on target. Continue Lisinopril 5 mg BID PO daily. Hyperlipidemia 00920132 E78.00 Follow low fat diet. Lipids: LDL 147 has diabetes. Will restart now every other day Body mass index 30+ - obesity 226042036 Z68.30 encouraged lifestyle modificati on to include diet and exercise at least 45 mins x 3 -4 weekly Personal h istory of primary malignant neoplasm of breast 424338685 Z85.3 Continue mammograms yearly and yearly [facility]OST[facility] visits., breast exam normal Screening for malignant neoplasm of breast 419710949 Z12.39 Screening for malignant neoplasm of cervix 535746684 Z12.4 Varicella vaccination 68 386627 Z23 Chronic ki dney disease stage 3 976647982 N18.32 Obesity 908016608 E66.9 [id number] Sendy Ulloa PA-C Main Office [address] [facility] 207 [place] [address] 10/23/2020 09:03:22 10/23/2020 11:34:13 Renal disorder due to type 2 diabetes mellitus 564781898 E11.22 Uncontroll ed type II DM with [...] visit. Chronic ki dney disease stage 3B 412300207 N18.32 F/u with Dr. Coelho as scheduled. [id number] Garrett wellington Main Office [address] [facility] 207 [place] [address] 04/08/2022 12:47:07 04/08/2022 13:33:39 Chronic kidney disease stage 3B 889936187 N18.32 Hyperlipidemia 07197993 E78.00 Hypertensi ve renal disease 91996990 I12.9 followed by renal, recent treatment with diuretics Personal h istory of primary malignant neoplasm of breast 633828646 Z85.3 mammogram once a year, utd Adult heal th examination 275849560 Z00.00 utd on mammogram as per pt due for colonscopy at end of 2022 at 4 year jono not active, does not like exercise but is walking 4 times a week Renal diso rder due to type 2 diabetes mellitus 542645103 E11.22 followup with renal [id number] Sendy Ulloa PA-C Main Office [address] [facility] [address] [place] [address] 04/22/2022 09:30:24 04/22/2022 10:34:44 Chronic kidney disease stage 3B 137905167 N18.32 F/u with Dr. Coelho as scheduled. Hypertensi ve renal disease 45306022 I12.9 f/u with renal ,lisinopri l was just increased by Meliton HAMMONDS. Pt. will continue home monitoring . Renal diso rder due to type 2 diabetes mellitus 399219719 E11.29 Uncontroll ed type II DM with [...] well prior to visit. Mixed hyperlipidemia 267 224468 E78.2 Begin taking rosuvastat in 20 mg and repeat fasting lipids in 6 weeks. 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 Refer for same day urgent ophthalmol ogryan carr. Consider brain MRA or CT. [id number] Ann-Marie Gonzalez Main Office [address] [facility] [address] [place] [address] 06/17/2022 10:50:21 06/17/2022 11:38:59 Renal disorder due to type 2 diabetes mellitus 139583974 E11.22 Uncontroll ed type II DM with [...] weeks. Chronic ki dney disease stage 3B 515160224 N18.32 Pt. is on Lisinopril and has stable glucose and BP. [id number] Sendy Ulloa PA-C Main Office [address] [facility] 207 [facility] [place] [address] 07/22/2022 12:47:40 07/22/2022 13:51:56 Renal disorder due to type 2 diabetes mellitus 078152003 E11.22 Uncontroll ed type II DM with [...] visit. Chronic ki dney disease stage 3B 957236773 N18.32 Pt. is on Lisinopril and has stable glucose and BP. Long-term current use of insulin 800271355 Z79.4 [id number] MADELINE MESSER MD Main Office [address] [place] [address] 08/05/2022 12:49:11 08/05/2022 13:34:15 Hypertensive renal disease 84835483 I12.9 - BP today 125/76- c/w lisinopril [...] vision. Chronic ki dney disease stage 3B 550784434 N18.32 - creatine is 1.4 and GFR is 42- pt was last following with renal regularly Mixed hyperlipidemia 267 460510 E78.2 - at goal- currently on ASA [...] levels.- Eat more fruits and veggies. Hyperkalemia 35444242 E8 7.5 - on most recent CMP 06/09 it was noted that K+ was higher than usual at 5.7- EKG performed: NSR no hyperkalem ic changes noted- repeat CMP ordered to check levels, if still elevated will send pt kaycelate Renal diso rder due to type 2 diabetes mellitus 438617448 E11.21 - resent to pharmacy- performed diabetic foot exam on 08/05 Multiple joint pain 3567 8005 M25.50 - pt complainin g of joint pain: shoulders, back and knees- will check inflammato ry markers with ESR and CRP- will also ensure no underlying rheumatic disorders [id number] MADELINE MESSER MD Main Office 36[address] [facility] [address] 11/04/2022 10:32:39 11/04/2022 11:02:52 Hypertensive renal disease 27040983 I12.9 - at goal- BP today 125/74- [...] vision. Chronic ki dney disease stage 3B 245907173 N18.32 - creatine is 1.4 and GFR is 42- pt was last following with renal regularly, will see next week Hyperkalemia 65237161 E8 7.5 - most recent potassium levels was 6.3 and on 5.9 on repeat- pt was given treatment (sodium polystyren e)- ordered repeat check for today to ensure WNL or reduced- pt may need to be placed on [facility] [id number] Sendy Ulloa PA-C Main Office [address] [place] [address] 01/24/2023 09:34:55 01/24/2023 09:48:37 [id number] MADELINE MESSER MD Main Office [address] [place] [address] 02/10/2023 11:08:08 02/10/2023 11:59:36 Hypertensive renal disease 51787397 I12.9 - BP elevated today as patient [...] vision. Chronic ki dney disease stage 3B 270997537 N18.32 - creatine is 1.7 and GFR is 33- pt was last following with renal regularly, was seen on 11/22/22> nephrology wanted to start patient on farxiga however medication denied by insurance (per patient)- ordered repeat bmp to [facility] on potassium and kidney function Hyperkalemia 96826184 E8 7.5 - most recent potassium levels was 5.5- pt may need to be placed on lokelhi Long-term current use of insulin 852573750 Z79.4 Renal diso rder due to type 2 diabetes mellitus 186980306 E11.21 - worsening, HbA1c today is 14.4 [...] RTC in 4 week for follow-up with [id number] Patito Banda Main Office [address] [address] [place] [address] 02/21/2023 10:03:18 02/21/2023 10:07:42 [id number] Sendy Ulloa PA-C Main Office [address] [address] [place] [address] 04/14/2023 09:55:47 04/14/2023 10:41:16 Renal disorder due to type 2 diabetes mellitus 083301927 E11.22 Uncontroll ed type II DM with [...] carbs. Chronic ki dney disease stage 3B 619951933 N18.32 continue acei. jardiance was not approved for use by the insurance. F/u with renal. [id number] Patito Banda Main Office [address] [address] [place] [address] 04/17/2023 09:03:30 04/17/2023 09:07:03 [id number] MADELINE MESSER MD Main Office [address] [place] [address] 05/12/2023 10:35:20 05/12/2023 11:00:21 Hypertensive renal disease 69299541 I12.9 - BP elevated today as patient [...] ankles.>Milligan ve trouble with your vision. Hyperkalemia 16097508 E8 7.5 - most recent potassium levels was 5.4 on 03/21- lokelma was not approved by insurance- pt is currently taking kaycelate weekly Chronic ki dney disease stage 4 254809860 N18.4 - creatine is 2.1 and GFR is 27 done on 03/31- pt was last following with renal regularly, was seen on 03/06/2023 - pt advised to hold all NSAIDS, avoid nephrotoxi c drugs and stay hydrated Renal tubu lar acidosis 6233744 N25.89 - type 4- lisinopril is currently on hold- pt continues to follow with renal- taking sodium bicard 650mg weekly as well -> given by nephrology - will need a renal biopsy [id number] Sendy Ulloa PA-C Main Office [address] [address] [place] [address] 05/19/2023 08:32:09 05/19/2023 08:36:27 [id number] Sendy Ulloa PA-C Main Office [address] [address] [place] [address] 06/19/2023 08:31:01 06/19/2023 08:34:35 [id number] Sendy Ulloa PA-C Main Office [address] [address] [place] [address] 06/23/2023 09:16:08 06/23/2023 09:58:02 Chronic kidney disease stage 3B 913171079 N18.32 continue acei. jardiance was not approved for use by the insurance. F/u with renal. Renal diso rder due to type 2 diabetes mellitus 571055441 E11.21 Uncontroll ed type II DM with [...] 4-6 weeks. Long-term current use of insulin 926498945 Z79.4 hypoglycem ia management reviewed with pt. Glucagon kit forwarded to pharmacy. Hypertensi ve renal disease 95063862 I12.9 f/u with renal next week. {T. was encourage to test blood pressure daily at home until her visit with renal. [id number] Sendy Ulloa PA-C Main Office [address] [place] [address] [place] [address] 07/18/2023 09:53:54 07/18/2023 09:58:45 [id number] Sendy Ulloa PA-C Main Office [address] [place] [address] [place] [address] 08/18/2023 10:08:14 08/18/2023 10:14:26 [id number] Sendy Ulloa PA-C Main Office [address] [place] [address] [place] [address] 09/01/2023 14:42:32 09/01/2023 15:11:08 Renal disorder due to type 2 diabetes mellitus 455310115 E11.21 Uncontroll ed type II DM with [...] weeks. Chronic ki dney disease stage 3B 017689798 N18.32 continue acei. jardiance was not approved for use by the insurance. F/u with renal. [id number] Sendy Ulloa PA-C Main Office [address] [address] [place] [address] 09/19/2023 09:23:42 09/19/2023 09:31:17 [id number] Sendy Ulloa PA-C Telehealt h [address] [address] [place] [address] 10/09/2023 14:26:32 10/09/2023 15:38:12 Renal disorder due to type 2 diabetes mellitus 747704847 E11.21 Uncontroll ed type II DM with [...] weekly. Chronic ki dney disease stage 3B 917710743 N18.32 continue acei. jardiance was not approved for use by the insurance. F/u with renal. [id number] Sendy Ulloa PA-C Main Office [address] [address] [place] [address] 10/23/2023 09:49:23 10/23/2023 10:02:03 [id number] MADELINE MESSER MD Main Office [address] [address] [place] [address] 10/27/2023 09:07:45 10/27/2023 09:33:51 Renal disorder due to type 2 diabetes mellitus 337196791 E11.21 - not well controlled - HbA1c is 8.9- c/w insulin lispro 30 units- pt has not yet gotten mounjaro and as not started medication , will check if insurance approved it Long-term current use of insulin 420861447 Z79.4 Hypertensi ve renal disease 81207464 I12.9 - at goal- BP today 152/84 [...] vision. Chronic ki dney disease stage 4 040934124 N18.4 - creatine is 1.79 and GFR is 31 done on 06/19/2023- pt was last following with renal regularly, was seen on 06/2023- pt advised to hold all NSAIDS, avoid nephrotoxi c drugs and stay hydrated Hyperkalemia 08103128 E8 7.5 - most recent potassium levels was 5.4 on 03/21- lokelma was not approved by insurance- pt is currently taking kaycelate weekly Renal tubu lar acidosis 6136827 N25.89 - type 4- lisinopril is currently on hold- pt continues to follow with renal- taking sodium bicard 650mg weekly as well -> given by nephrology - will need a renal biopsy [id number] MADELINE MESSER MD Main Office [address] [facility] [address] [facility] [place] [address] 11/10/2023 14:23:31 11/10/2023 16:01:28 Chronic mastoiditis 16619153 H70.11 - MRI of the brain done [...] follow-up- will repeat imaging in 3 months [id number] Patito Banda Main Office [address] [facility] [address] [place] [address] 02/06/2024 11:57:30 02/06/2024 11:59:32 [id number] MADELINE MESSER MD Main Office [address] [facility] 207 [place] [address] 04/26/2024 09:43:41 04/26/2024 10:19:39 Chronic kidney disease stage 3B 211284261 N18.32 - creatine is 1.94 and GFR is 28- pt was last following with renal regularly, was seen on 01/26/2024> nephrology wanted to start patient on farxiga however medication denied by insurance (per patient)- ordered BMP Hyperkalemia [id number] E8 7.5 - most recent potassium levels was 5.7 on 01/23/2024- lokelma was not approved by insurance- pt is currently taking kaycelate weekly Hypertensi ve renal disease [id number] I12.9 - elevated- BP today 148/83> patient [...] trouble with your vision. Mixed hyperlipidemia [id number] E78.2 - at goal- currently on ASA [...] and veggies. Long-term current use of insulin [id number] Z79.4 Gastroesop hageal reflux disease [id number] K21.00 - worsened after starting mounjaro- pt [...] rder due to type 2 diabetes mellitus [id number] E11.21 - not well controlled , worsened- HbA1c is 12.1- c/w insulin lispro 8 units BID- c/w tresiba 10 units nightly- c/w Mounjaro 5mg SQ weekly- pt follows with diabetic specialist in the clinic- diabetic eye exam: 10/23/2023 -> positive Fatigue [id number] R53.83 Z00.00 Hyperlipidemia 89558872 E78.5 Z00.00 FASTING Health Concerns Section Related Observation LastModified by Organization Detai ls LastModified Time None Recorded Concern Status LastModified by Organization Details LastModified Time None Recorded Advance Directives Directive N: Payers Encounter Date Sequence Insurance Name Policy Number Policy Wooten Covered Member ID Wooten Member ID Guarantor Name 10/23/2023 1 [place] [id number] Annabella Ascencioado [id number] Annabella Ascencioado 10/27/2023 1 [place] [id number] Annabella Robertsondonado [id number] Annabella Robertsondonado 11/10/2023 1 [place] [id number] Annabella Robertsondonado [id number] Annabella Robertsondonado 02/06/2024 1 [place] [id number] Annabella Robertsondonado [id number] Annabella Robertsondonado 04/26/2024 1 [facility] [id number] Annabella Ramirez [id number] Annabella Ramirez Notes Date Note Type Note Provider Name and Address Organization Details Recorded Time 10/27/2023 text/html Hypertension F/UReported bypatient.Notes:Patie nt here [...] follow-up on her chronic conditions. Hyperkalemia: Pt assistant grocery has patient started patient on kayacelate which she takes once a week. Lisinopril has been stopped and no blood pressure medications were given in substitute. Pt will be seeing her assistant grocery later today. Pt mentions her vision is doing much better. She is now able to drive. Patient is following with our clinical rn liaison for diabetes. Patient has been having a hard time getting GLP-1s approved by insurance. MADELINE MESSER MD [address], [phone], [facility] 10/27/2023 09:34:52 11/10/2023 text/html Annabella Ramirez is a 62 year old F who was seen over TH for discussion of recent MRI brain findings ordered by her sponsorship coordinator. Pt mentioned to MD that the imaging was ordered to ensure there no underlying brain mass or opthalmologic problem. On the scan it was noted there was mastoiditis which the sponsorship coordinator left for PCP to address. Pt is currently asymptomatic, has no complaints. MADELINE MESSER MD [address] [address], [place], [phone], [facility] 11/10/2023 16:22:56 04/26/2024 text/html GERD RefluxRepor serafin bypatient.Symptomspos tprandial pain Quality:burning Severity:worsening Duration:present for 1-6 months [...] no black/tarry stools; no fatigue; no throat pain;regurgitationHyp ertension F/UReported bypatient.Notes:Patie nt here for follow-up of [...] follow-up on her chronic conditions. 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 Patient is following with our clinical rn liaison for diabetes. Patient has been having a hard time getting GLP-1s approved by insurance. Has now been able to start Mounjaro. MADELINE MESSER MD [address] [address], [place], [phone], [facility] 04/26/2024 10:40:45 OBGyn Episode No OBEpisode recorded.
== END 2024-05-24 15:01 | disposition home or self-care (01) ==
PROVIDERS: PCP Student in an Organized Health Care Education/Training Program; Visit Provider Internal Medicine Nephrology
DX: I10 Essential (primary) hypertension (principal); E11.22 Type 2 diabetes mellitus with diabetic chronic kidney disease; N18.30 Chronic kidney disease, stage 3 unspecified; E87.5 Hyperkalemia; E11.29 Type 2 diabetes mellitus with other diabetic kidney complication; R80.9 Proteinuria, unspecified
CPT/HCPCS: 99214

== ENCOUNTER 2024-09-27 14:49 | Outpatient (AMB) | payer OTHER, SELFPAY ==
--- OUTSIDE RECORDS SUMMARY | 2024-09-27 14:51 | XMS_ITS | Continuity of Care Document ---
Author Organization [facility], Main Office Address [address] [facility] [address] [place] [address] Care Team Providers Care Tool Design Engineer Name Role Phone YOCASTA GARCIA Slitter And Cutter Operator FELICITA RAMIREZ Extension Service Specialist LIBIA WINN Graphic Artist ANUM BOO Cotton Converter BETITO ZAVALA Primary Care Provider Assessment No assessment recorded. Plan of Treatment Reminders Order Date Submit Date Provider Last Modified By Organization Details Last Modified Time Details Appointments Follow Up DM 30 2024 02:00P Ruel Ulloa PA-C Not available Not available Not available AWV30 2024 01:00P Ruel ZAVALA MD Not available Not available Not available Follow Up DM 30 2024 03:15P Ruel Ulloa PA-C Not available Not available Not available Lab None recorded . Referral None recorded . Procedures None recorded . Surgeries None recorded . Imaging None recorded . Medication Orders None recorded . Patient TargetsNo targets recorded. Patient Instructions Encounter Date Encounter Id Patient Instructions Last Modified By Organization Details Last Modified Time 09/27/2024 [id number] Medications (OTC, herbal therapies, supplements) reviewed and reconciled with patient and or caregiver, including potential side effects, drug interactions, instructions, and the consequences of not taking medication. Reviewed potential barriers to medication adherence, such as side effects from medication or cost of medication. [email or web address] Not available 09/27/2024 13:54:25 Reason for Referral None Reported. Problems Name Problem SNOMED Code Status Onset Date Resolution Date Notes Provider Name and Address Organization Details Recorded Time Patient status finding [id number] Completed 201201/25/2016 RECORDED 07/31/19 13 2:46PM BY HEIDI STEELE, OFFICE VISIT [place] Latif, [facility] 6 08:43:20 Primary malignan t neoplasm of female breast 14446588 Completed 201203/26/2019 DX 2011 RIGHT BREAST TX WITH LUMPECTO MY, 3 LYMPH NODES REMOVED, THEN RADIATIO N FOLLOWED BY DR GONZALEZ FOR ONCOLOGY Sendy Ulloa PA-C [address], [place], [address] , [facility] 0 14:25:42 Screenin g for malignan t neoplasm of colon Completed 201210/01/2013 RECORDED 05/29/19 13 1:01PM BY KANE ABURTO MA, ANNOTATI ON/ADDEN DUM [place] Latif, [facility] 6 08:43:35 Screenin g for malignan t neoplasm of colon Completed 201201/25/2016 RECORDED 09/28/19 13 2:32PM BY FISH LUGO , LAB REQ [place] Latif [facility] 6 08:43:35 Type 2 diabetes mellitus without complica tion 351520454 Completed 201201/23/2017 RECORDED 07/31/19 13 2:37PM BY HEIDI STEELE, OFFICE VISIT Irina reilly [facility] 7 12:03:28 Type 2 diabetes mellitus without complica tion 183090670 Completed 201210/01/2013 IMPRESSI ON: NEEDS TO ADD EXERCISE AND LOWER CARBS; RECORDED 05/29/19 13 2:07PM BY BRIAN RIGGS PA-C, ANNOTATI ON/ADDEN DUM Irina reilly [facility] 7 12:03:28 Uncontro lled type 2 diabetes mellitus 713703323 Completed 201201/25/2016 STORY: LABS 04/16/12 A1C 10.9.; [...] BY IRINA Curtis MD, OFFICE VISIT [place] Latif, [facility] 6 08:43:40 Blood chemistr y outside referenc e range 193261476 Completed 201207/25/2016 RECORDED 08/21/19 13 3:13PM BY IRINA Curtis MD, PHONE ENCOUNTE R Irina Chen-Munira reilly [facility] 7 11:20:56 Influenz a vaccine needed [id number] 06 Completed 201210/01/2013 RECORDED 05/29/19 13 1:01PM BY KANE ABURTO MA, ANNOTATI ON/ADDEN DUM Sendy Ulloa PA-C [address] [address], [place], [address] , [facility] 6 14:50:07 Adult health examinat ion Completed 201201/25/2016 IMPRESSI ON: PT TO SET UP PAP, MAMMO UTD, GETS EVERY 6 MONTHS; RECORDED 08/16/19 13 11:39AM BY POLY BANDA, HISTORIC AL SUMMARY M[place] Latif [facility] 6 08:43:30 Essentia l hyperten cyndi [id number] Completed 201210/01/2013 RECORDED 05/29/19 13 1:02PM BY KANE ABURTO MA, ANNOTATI ON/ADDEN DUM Ann-Marie Gonzalez null, [facility] 0 11:29:25 Laborato ry procedur e performe d [id number] Completed 201301/25/2016 RECORDED 05/24/19 14 2:25PM BY KEAGAN ZEPEDA, LAB REQ [place] Latif, [facility] 6 08:43:25 Disorder of thyroid gland 87390948 Active 2012 WAS ON MED, OFF NOW M[place] Latif, [facility] 3 11:15:56 Vitamin D deficien cy 91481191 Completed 201210/01/2013 IMPRESSI ON: WAS ON 50,OOO UNITS AND NOW ON DAILY, LEVEL WAS LOW LAST YEAR; RECORDED 05/29/19 13 1:01PM BY KANE ABURTO MA, ANNOTATI ON/ADDEN DUM Sendy Ulloa PA-C [address] [facility] [address], [place], [address] , [facility] 6 14:50:07 Screenin g for malignan t neoplasm of colon Completed 201210/28/2013 RECORDED 05/29/19 13 1:01PM BY KANE ABURTO MA, ANNOTATI ON/ADDEN DUM M[place] Latif, [facility] 6 08:43:35 Influenz a vaccine needed [id number] 06 Completed 201210/28/2013 RECORDED 05/29/19 13 1:01PM BY KANE ABURTO MA, ANNOTPORTILLO ON/ADDEN DUM Sendy Ulloa PA-C [address], [place], [address] , [facility] 6 14:50:07 Essentia l hyperten cyndi [id number] Completed 201210/28/2013 RECORDED 05/29/19 13 1:02PM BY KANE ABURTO MA, ANNOTATI ON/ADDEN DUM Ann-Marie reilly [facility] 0 11:29:25 Vitamin D deficien cy 28173515 Completed 201210/28/2013 IMPRESSI ON: WAS ON 50,OOO UNITS AND NOW ON DAILY, LEVEL WAS LOW LAST YEAR; RECORDED 05/29/19 13 1:01PM BY KANE ABURTO MA, ANNOTATI ON/ADDEN DUM Sendy Ulloa PA-C [address], [place], [address] , [facility] 6 14:50:07 Postmeno pausal bleeding 76263032 Completed 07/25/2016 Irina reilly, [facility] 7 11:21:51 Body mass index 30+ - obesity 507388368 Completed 07/25/2016 Irina reilly, [facility] 7 11:22:07 Renal disorder due to type 2 diabetes mellitus 083232898 Active 2016 Not Available [facility] 0 14:09:52 Chronic kidney disease stage 1 148746747 Completed 201603/27/2017 Sendy Ulloa PA-C [address] [facility] [address], [place], [address] , [facility] 4 09:37:25 Hyperten sive renal disease 47878724 Active 2016 Not Available [facility] 0 14:09:52 Chronic kidney disease stage 2 255207245 Completed 201703/11/2019 Sendy Ulloa PA-C [address] [facility] [address], [place], [address] , [facility] 9 10:45:46 Hyperlip idemia 47455701 Completed 201708/04/2022 BETITO ZAVALA MD [address] [facility] [address], [place], [address] , [facility] 3 19:48:43 Chronic kidney disease stage 3 due to type 2 diabetes mellitus 55025644865 5 Completed 201703/26/2019 Ann-Marie Gonzalez null, [facility] 0 16:06:25 Obesity 043929931 Active 2018 M[place] Latif, [facility] 3 11:15:56 Chronic kidney disease stage 3 089269686 Completed 201810/23/2020 Sendy Ulloa PA-C [address] [facility] [address], [place], [address] , [facility] 1 11:24:48 Microalb uminuria 244031892 Active 2019 Not Available [facility] 0 14:09:52 Noncompl iance with treatmen t 2929435 Active 2019 M[place] Latif, [facility] 3 11:15:56 Chronic kidney disease stage 3B 252863335 Active 2020 M[place] Latif, [facility] 3 12:53:44 Malignan t tumor of breast 687365303 Active 2010 M[place] Latif, [facility] 3 12:53:44 Mixed hyperlip idemia 914765319 Active 2022 M[place] Latif, [facility] 3 11:15:56 Hyperkal emia 10087755 Active 2022 Justo Medeiros MD [address] [facility] [address], [place], [address] , [facility] 3 04:35:12 Gastroes ophageal reflux disease without esophagi tis 786250964 Active 2024 Kiki reilly, [facility] 5 14:18:22 Problem Notes None recorded. Procedures Surgical History Date Name Laterality Status Provider Name and Address Organization Details Recorded Time 08/28/19 Most Recent Mammogram completed Renay Lee [facility] 08/28/2023 11:14:34 05/25/19 24 diabetic retinopathy screening completed Renay Lee [facility] 06/30/2023 08:47:36 08/06/19 23 Diabetic Foot Exam (Monofilament) completed BETITO ZAVALA MD [address] [address], [place], [address], [facility] 08/05/2022 13:30:00 03/20/19 22 Date of Last Pap Smear completed Heidi Steele MA [facility] 04/08/2022 13:03:50 10/24/19 21 Diabetic Foot Exam (Monofilament) completed Mikaela Issa MA [facility] 10/23/2020 10:35:13 10/20/19 21 Diabetic Foot Exam (Monofilament) completed Nanette Tapia MA [facility] 10/19/2020 15:17:02 05/01/19 21 Diabetic Foot Exam (Monofilament) cancelled Mikaela Issa MA [facility] 05/01/2020 11:27:35 02/14/20 20 Mammogram screening completed Patito Banda [facility] 02/17/2020 14:55:16 03/26/19 20 Diabetic Foot Exam (Monofilament) completed Sendy Ulloa PA-C [address] [address], [place], [address], [facility] 03/26/2019 14:15:41 03/11/20 19 Diabetic Foot Exam (Monofilament) completed Olga Jacob [facility] 03/11/2019 10:24:03 06/05/19 19 Diabetic Foot Exam (Monofilament) completed Sendy QUICK-C [address] [address], [place], [address], [facility] 06/04/2018 15:02:54 12/27/19 18 Date of Last Colonoscopy completed Patito Banda [facility] 12/28/2017 10:11:50 12/27/19 18 Colonoscopy completed Patito Banda [facility] 12/28/2017 10:11:45 08/22/19 18 Diabetic Foot Exam (Monofilament) completed Jessica Solorzano MA [facility] 08/21/2017 11:01:40 08/05/19 18 Excision of Melanoma completed Halle Piña [facility] 08/18/2017 10:48:25 05/01/19 18 biopsy completed Shyanne hernandez MA [facility] 01/06/2020 08:53:48 03/20/19 16 Endometrial Ablation completed Shyanne hernandez MA [facility] 03/27/2017 13:13:32 03/20/19 15 Ultrasound breast limited completed Shyanne hernandez MA [facility] 03/27/2017 13:06:30 Breast Surgery completed Heidi sandhu MA [facility] 07/20/2015 11:06:21 Lesion destruction completed Heidi Steele MA [facility] 07/31/2017 13:52:53 Imaging Results None recorded. Procedure Notes None recorded. Medical Equipment None Reported. Allergies Allergen ID Allergen Name Allergen Category Reaction Reaction Severity Criticality Documentation Date Start Date Code Code System Note Provider Name and Address Organization Details Recorded Time Substance with sulfonami de structure and antibacte rial mechanism of action (substanc e) medicatio n Not available Not available Not available 06/02/20142012 32412 8003 SNOMED Melissa reilly [facility] 5 14:00:40 86064 amoxicill in medicatio n Not available Not available Not available 04/08/20222021 723 RxNorm MJ Latif [facility] 3 12:52:43 23089 potassium chloride medicatio n edema Not available Not available 04/22/2022 8591 RxNorm Not Available [facility] 3 17:07:33 4546 Product containin g penicilli n (product) medicatio n Not available Not available Not available 10/01/20132012 38068 8001 SNOMED Shyanne Amber monroe [place] null, [facility] 8 12:59:53 51143 Trulicity medicatio n nausea Not available Not available 06/23/2023 68806 96 RxNorm Sendy Artemio YEE [address] [facility] [address], [facility], [address], [facility] 4 12:49:41 Medications Name Sig Start Date [...] TAKE 1 TABLET BY MOUTH EVERY DAY 09/27 completed Not Available Not Available Not Available aspirin 81 mg tablet,de layed release Take 1 tablet every day by oral route. 09/27 completed Not Available Not Available Not Available sodium polystyre ne sulfonate 15 gram/60 mL oral suspensio n Take 15 g every 12 hours by oral route for 2 days. 04/14 completed Not Available Not Available Not Available famotidin e 20 mg tablet TAKE 1 TABLET EVERY DAY BY ORAL ROUTE FOR 30 DAYS, FOR GERD. 2024 active prn Not Available Not Available Not Avai lable sodium bicarbona te 650 mg tablet TAKE 1 TAB ORALLY DAILY FOR 30 DAYS active Not Available Not Available No [...] ne-homatr opine 5 mg-1.5 mg/5 mL oral solution TAKE 5 ML BY MOUTH EVERY 6 [...] Available sodium polystyre ne sulfonate oral powder USE 30 GRAMS( 2 BOTTLES) 8 LEVEL TEASPOON S ORALLY ONCE A WEEK active Not Available Not [...] unit/mL subcutane ous pen Inject 8 units 3 times a day by sub-q route with meal(s) for 60 days. active Not Available Not Available No t Available Vitamin D3 25 mcg (1,000 unit) capsule Take 1 capsule every day by oral route. 09/27 completed Not Available Not Available Not Available rosuvasta tin 20 mg tablet TAKE 1 TABLET BY MOUTH EVERY DAY 09/27 completed Not Available Not Available Not Available nitrofura ntoin monohydra te/macroc rystals 100 [...] completed Not Available Not Available Not Available Erlinda Taveras U-300 Insulin 300 unit/mL (1.5 mL) subcutane ous pen Inject 35 units every day by subcutan eous route for 30 days. 10/24 completed Not Available Not Available Not Available Afluria 8383-9899 (PF) 45 mcg (15 mcg x 3)/0.5 mL IM syringe active Not Available Not Available Not Available Tresiba FlexTouch U-200 insulin 200 unit/mL (3 mL) subcutane ous pen Inject 10 units every day by subcutan eous route in the evening for 30 days. 09/27 completed Not Available Not Available Not Available Ozempic 0.25 mg or 0.5 mg (2 mg/1.5 mL) subcutane ous pen injector Inject 0.25 mg every week by subcutan eous route for 28 days. 02/10 completed has not started as of 11/05/19 23 This [facility] has it in stock Not Available [...] 5 mg/0.5 mL subcutane ous pen injector INJECT 5 MG SUBCUTAN EOUSLY WEEKLY active Not Available Not Available No t Available Mounjaro 2.5 mg/0.5 mL subcutane ous pen injector ADMINIST ER 2.5 MG UNDER THE SKIN EVERY WEEK 11/02 completed Not Available Not Available Not Available [employer] Baldo 3 Sensor device USE ONE SENSOR EVERY 14 DAY DIRECTED active Not Available Not Available No t Available Ozempic 0.25 mg or 0.5 mg (2 mg/3 mL) subcutane ous pen injector 02/10 completed Not Available Not Available Not Available Vitals Date Recorded Systolic And Diastolic Provider Name and Address Organization Details Last Updated DateTime 09/27/2024 140/88 mm[Hg] Sendy Ulloa PA-C [address] [address], [place], [address], [facility] 09/27/2024 14:23:48 Date Recorded Body height Body mass index (BMI) Body weight Heart rate Oxygen saturation Oxygen saturation in Arterial blood by Pulse oximetry Body temperature Systolic And Diastolic Systolic And Diastolic Provider Name and Address Organization Details Last Updated DateTime 154.94 cm 23.6 kg/m2 97793.0 5 g 90 /min 99 % 99 % 98 [degF] 149/80 mm[Hg] 142/70 mm[Hg] Shyanne monroe MA [facility] 5 14:01:56 Social History Question Answer Notes LastModified by Organizat ion Details LastModified Time Tobacco Smoking Status Never Smoker MJ Latif, [facility] 07/20/2015 11:08:43 Do You Have An Advance Directive? No Information not available 03/27/2017 Is Blood Transfusion Acceptable In An Emergency? Yes [email or web address] Information not available 07/20/2015 What Is Your Level Of Caffeine Consumption? Occasional [email or web address] Information not available 07/20/2015 How Much Tobacco Do You Chew? None Information not available 07/25/2016 What Type Of Diet Are You Following? REGULAR [email or web address] Information not available 07/20/2015 Which Illicit Or Recreational Drugs Have You Used? None Information not available 07/25/2016 Live Alone Or With Others? With Others (Mateusz) Information not available 03/27/2017 Do You Take Precautions To Prevent Distracted Driving? Yes [email or web address] Information not available 07/20/2015 How Often Do [...] How Many Children Do You Have? 0 [email or web address] Information not available 07/20/2015 Do You Use Protection During Sex? No Information not available 03/27/2017 Seat Belts Used Routinely Yes [email or web address] Information not available 07/20/2015 Are You Sexually Active? Yes Information not available 03/27/2017 Smoke Alarm In Home Yes [email or web address] Information not available 07/20/2015 At What Age Did You Start Smoking Tobacco? 0 Information not available 03/27/2017 Are You Passively Exposed To Smoke? No Information not available 07/25/2016 How Much Tobacco Do You Smoke? No Information not available 07/25/2016 Do You Use Sunscreen Routinely? Yes [email or web address] Information not available 07/20/2015 How Many Years Have You Smoked Tobacco? 0 Information not available 03/27/2017 Sex: Unknown Functional Status Question Answer Note LastModified by Organizat ion Details LastModified Time Do you use any illicit or recreational drugs? No Information not available 11/10/2023 Do you or have you ever used any other forms of tobacco or nicotine? No Information not available 10/19/2020 What is your level of alcohol consumption? None [email or web address] Information not available 07/20/2015 Do you or have you ever used smokeless tobacco? Never used smokeless tobacco Information not available 01/06/2020 Are you currently employed? Yes [email or web address] Information not available 07/20/2015 Are you able to walk? YESWOREST Information not available 10/19/2020 Are you able to care for yourself? 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 Never used electronic cigarettes Information not available 01/06/2020 What is your exercise level? Occasional 2-3 times a week rides her stationary bike [email or web address] Information not available 04/08/2022 Mental Status None [...] split virus, trivalent, preservative 5 completed Patito Banda melba, [facility] 01/14/2020 15:48:48 Influenza, split virus, quadrivalent, preservative 7 completed Heidi SteeleMJ, [facility] 02/10/2023 11:22:48 Influenza, split virus, quadrivalent, PF 9 completed Heidi Steele, [place] null, [facility] 02/10/2023 11:22:48 Influenza, MDCK, quadrivalent, PF 0 completed Heidiphillip Steele [place] null, [facility] 02/10/2023 11:22:48 COVID-19, mRNA, LNP-S, PF, 30 mcg/0.3 mL dose 1 completed Heidi SteeleMJ, [facility] 02/10/2023 11:22:48 COVID-19, mRNA, LNP-S, PF, 30 mcg/0.3 mL dose 1 completed Heidiphillip SteeleMJ, [facility] 02/10/2023 11:22:48 pneumococcal polysaccharide PPV23 6 completed Heidi Steele M[place] reilly, [facility] 02/10/2023 11:22:48 Tdap 9 completed Heidi Steele [place] reilly, [facility] 02/10/2023 11:22:48 Influenza, split virus, quadrivalent, PF 8 completed Heidi Steele, [place] null, [facility] 02/10/2023 11:22:48 COVID-19, mRNA, LNP-S, PF, 30 mcg/0.3 mL dose 2 completed Heidiphillip Steele [place] null, [facility] 02/10/2023 11:16:21 COVID-19, mRNA, LNP-S, PF, 30 mcg/0.3 mL dose, kassidy-sucrose 2 completed M[place] Latif [facility] 02/10/2023 11:16:21 COVID-19, mRNA, LNP-S, bivalent, PF, 50 mcg/0.5 mL or 25mcg/0.25 mL dose 2 completed M[place] Latif [facility] 02/10/2023 11:16:21 Influenza, split virus, trivalent, PF 7 completed M[place] Latif [facility] 02/10/2023 11:16:21 Influenza, MDCK, quadrivalent, PF 3 completed M[place] Latif [facility] 02/10/2023 11:22:48 Influenza, MDCK, quadrivalent, PF 2 completed M[place] Latif [facility] 02/10/2023 11:22:48 Influenza, split virus, quadrivalent, PF 6 completed M[place] Latif, [facility] 02/10/2023 11:22:48 Influenza, split virus, trivalent, PF 4 completed LOPEZ Link, [facility] 02/19/2024 13:45:48 Influenza, split virus, trivalent, preservative 2 completed Patito reilly [facility] 01/14/2020 15:48:49 Tdap 9 completed Patito Bandacaio reilly [facility] 01/14/2020 15:48:48 Past Encounters Encounter ID Performer Location Encounter Start Date Encounter Closed Date Diagnosis/Indication Diagnosis SNOMED-CT Code Diagnosis ICD10 Code Diagnosis Note [id number] Justo Medeiros MD Main Office [address] [facility] [address] [facility] [place] [phone] 09/27/2024 13:48:40 09/27/2024 14:26:40 Renal disorder due to type 2 diabetes mellitus 545118628 E11.21 A1c went down today to 6.1% from 12.1% last January. Rec to stop pre-prandi al insulin but continue Mounjaro 5mg injection weekly. Encouraged to increase hydration. Restart famotidine for GERD. F/u with renal this afternoon. Labs reviewed with pt. Gastroesop hageal reflux disease without esophagitis 658843925 K21.9 Rec to continue taking famotidine daily for acid reflux - likely from mounjaro. Chronic ki dney disease stage 3B 429780747 N18.32 Pt has an appt with renal this afternoon. Health Concerns Section Related Observation LastModified by Organization Detai ls LastModified Time None Recorded Concern Status LastModified by Organization Details LastModified Time None Recorded Payers Encounter Date Sequence Insurance Name Policy Number Policy Wooten Covered Member ID Wooten Member ID Guarantor Name 09/27/2024 1 [facility] [id number] Annabella Ramirez [id number] Annabella Ramirez Notes Date Note Type Note Provider Name and Address Organization Details Recorded Time 09/27/2024 text/html Diabetes F/URepo rted bypatient.Context:no rmal range of home blood sugars (in the low 100s); seeing eye doctor regularly; checking feet regularly;side effects from medications; reports heart burn, not taking femotidine regularly. Associated Symptoms:weight loss (20 lbs);dizzinessNotes: A1c is 6.1%.Meds: Mounjaro 5 mg weekly. pre meal insulin 5-8 u . Pt is not testing glucose. Had CGM before. Not doing fingerstick testing.CKD stg 3B. Creat 1.88 , GFR 28 ,slightly higher than last one. Pt reports not hydrating enough. Sees renal for f/u this afternoon.GERD RefluxReported bypatient.Symptomspo stprandial pain Quality:burning Severity:worsening Duration:present for [...] History of target organ damage: yes (CKD). Sendy Ulloa PA-C [address], [address], [facility] 09/27/2024 14:40:50 OBGyn Episode No OBEpisode recorded.
--- OUTSIDE RECORDS SUMMARY | 2024-09-27 14:51 | XMS_ITS | Patient Health Record ---
Author Organization [facility] Address 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 Name Role Phone LUCAS SMITH, BETITO Primary Care Provider Krystal Archuleta Unavailable [phone] Allergies Allergen (clinical drug ingredient) Drug/Non Drug [...] 1 tablet Orally Twic e a day [facility]- 10/12/2011 Active Vitamin D (Ergocalciferol) 75352 UNIT 1 capsule Orally EVERY WEEK; Duration: 90 days 11/07/2022 Active HumaLOG KwikPen 100 UNIT/ML ADMINISTER 12 UNITS UNDER THE SKIN THREE TIMES DAILY BEFORE MEALS Subcutaneous; Duration: 28 29,Unavailabl e Active glipiZIDE 10 MG 1 tablet Orally Once a day [facility]- 02/14/2011 Active Social History Tobacco Use: Social [...] Status Risk Notes Problem Vitamin D deficiency (44659001) Vitamin D deficiency, unspecified (E55.9) Active confirmed Problem Malignant neoplasm o f female breast (318753273) Malignant neoplasm of unspecified site of right female breast (C50.911) Active confirmed Problem Disorder due to type 2 diabetes mellitus (516345143) Type 2 diabetes mellitus with unspecified complications (E11.8) Active confirmed Problem Type II diabetes mellitus without complication (355787018) Type 2 diabetes mellitus without complications (E11.9) Active confirmed Problem Hyperparathyroidism (98085222) Hyperparathyroid ism, unspecified (E21.3) Active confirmed Problem Screening for malignant neoplasm of breast (960165806) Encounter for screening mammogram for malignant neoplasm of breast (Z12.31) Active confirmed Problem Screening for osteoporosis (451079656) Encounter for screening for osteoporosis (Z13.820) Active confirmed Problem Personal history of primary malignant neoplasm of breast (919662158) Personal history of malignant neoplasm of breast (Z85.3) Active confirmed Problem Candidal vulvovaginitis (74305033) Candidiasis of vulva and vagina (112.1) Active confirmed Diag Problem Malignant neoplasm o f female breast (920407708) Malignant neoplasm of other specified sites of female breast (174.8) Active confirmed Major Problem Hypothyroidism (52214844) Unspecified hypothyroidism (244.9) Active confirmed Major Problem Type II diabetes mellitus without complication (633364651) Diabetes mellitus without mention of complication, type II or unspecified type, not stated as uncontrolled (250.00) Active confirmed Major Problem Acne (26248239) Other acne (706.1) Active confirmed Other Problem Atypical glandular cells on cervical Papanicolaou smear (055851739) Abnormal glandular Papanicolaou smear of cervix (795.00) Active confirmed Diag Problem Gynecological examination normal (805557216108578) Routine gynecological examination (V72.31) Active confirmed Major Problem Screening for malignant neoplasm of colon (806904306) Special screening for malignant neoplasms, colon (V76.51) Active confirmed Major Encounters Encounter Location Date Provider Diagnosis [address] [place] [address] 02/09/2024 Krystal Kwong Plan Of Treatment Pending Test Test Name Order Date MAMMOGRAM, SCREENING 05/19/2014 MAMMOGRAM, SCREENING 01/22/2021 MAMMOGRAM, SCREENING 02/03/2023 Urinalysis 06/29/2015 Urinalysis 01/22/2021 Glucose, random 01/28/2022 1,25OH VITAMIN D 02/03/2023 25OH VITAMIN D 11/29/2022 PTH, INTACT 11/29/2022 BONE DENSITY 01/28/2022 MM Digital Mammo Screening 01/28/2022 MM Digital Mammo Screening 01/22/2021 MM Digital Mammo Screening 07/11/2016 MM Digital Mammo Screening 02/03/2023 Next Appt Details Provider Name:Krystal edwards, 11/22/2024 01:20:00 PM, [address], [address], [place], [address], Insurance Providers Payer Name Payer Address Payer Phone Subscriber Number Group Number Insured Name Patient Relationship to Insured Coverage Start Date Coverage End Date [employer] [address] [place] [address] [id number] ANNIKA BATES Self - patient is [...] Date(Month/Year) Colonoscopy Right Breast Biopsy Right Lumpectomy Eustace Teeth Extraction Abdominoplasty Hysteroscopy, Fraction D&C 09/17/15 Hospitalization History Reason Date(Month/Year) See Surgical Hx
--- OUTSIDE RECORDS SUMMARY | 2024-09-27 14:51 | XMS_ITS | Encounter Summary ---
Author Organization [facility] Address [address] [place] [address] Phone Care Team Providers Care Screedman Name Role Phone Madeline Messer MD Primary Care Provider [phone] Encounter Details Date Type Department Care Team (Late st Contact Info) Description 07/18/2020 Orders Only [facility] [address] [place] [id number] Terrence Coelho MD Hypertensive renal disease; Renal [...] Renal function panel (10/19/2020 4:13 PM EDT) [facility] Glucose 392(H) (70-99) MG/DL [facility] BUN 26(H) (8-23) MG/DL [facility] Creatinine 1.4(H) (0.5-1.0) MG/DL [facility] Sodium 139 (133-145) MMOL/L [facility] Potassium 5.4(H) (3.6-5.2) MMOL/L [facility] Chloride 102 (98-107) MMOL/L [facility] Bicarbonate (CO2) 28 (22-29) MMOL/L [facility] Anion Gap 9 (4-17) [facility] Albumin 4.4 (3.4-4.8) GM/DL [facility] Calcium 10.0 (8.6-10.5) MG/DL [facility] Phosphorus, Serum 3.4 (2.5-4.5) MG/DL [facility] Est GFR Non 42 ML/MIN/1.7 3 M2 [facility] Comment: Creatinine based estimated glomerular filtration rate (eGFR) is calculated using the Chronic Kidney Disease Epidemiology Collaboration (CKD-EPI). The CKD-EPI creatinine equation has not been validated in children (<18 years), women or in some racial or ethnic subgroups other than Caucasians and Americans. EST GFR 49 ML/MIN/1.7 3 M2 [facility] Comment: Creatinine based estimated glomerular filtration rate (eGFR) is calculated using the Chronic Kidney Disease Epidemiology Collaboration (CKD-EPI). The CKD-EPI creatinine equation has not been validated in children (<18 years), women or in some racial or ethnic subgroups other than Caucasians and Americans. Testing performed or reported by [facility], a Service of [facility] [place] [facility], [address] [place] [id number] Leslie Andrade MD, Knot Bumper Blood specimen (specimen) Venous blood / Unknown 10/19/2020 4:13 PM EDT 10/19/2020 4:16 PM EDT us Terrence Coelho MD LAB BLOOD ORDERABLES Final Resul t [facility] documented in this encounter Visit Diagnoses Diagnosis Hypertensive renal disease Renal disorder due to type 2 diabetes mellitus <Diabetic nephropathy> (HCC) Chronic kidney disease stage 1 documented in this encounter Care Teams Screedman Relationship Specialty Start Date End Date Madeline Messer MD [address] [address] PCP - General Family Medicine 11/10/22 documented as of this encounter
--- NOTE | 2024-09-27 14:57 | HO.NEPHOV ---
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 Her blood sugar control is labile. She has taken is SGLT2 inhibitor in the past but had to come off it. She denies any dizziness, nausea, vomiting, diarrhea or urinary symptoms. She has no pedal edema. She denies any chest pain, shortness of breath, proximal nocturnal dyspnea, orthopnea. She tries to maintain good hydration. She avoids nonsteroidal anti-inflammatory use. Her serum K has gone up along with BUN. Her serum creatinine is stable [facility] Medical History (Updated 03/06/23 @ 16:26 by Terrence Coelho MD) Hyperkalemia Edema Proteinuria due to type 2 diabetes mellitus Chronic kidney disease Diabetic acidosis, type II Surgical History History of lumpectomy Family History Mother Diabetes Maternal Grandmother Cancer Diabetes Social History Alcohol intake: never Patient Tobacco Use Status: Never used Tobacco Review of Systems Const All systems reviewed & are unremarkable except as noted in HPI and below Physical Exam Const General: comfortable and no acute distress Orientation/consciousness: patient oriented x3 HEENT Head: Yes normocephalic Mouth: Normal oral and palatal mucosa present Eyes EOM: EOMs intact bilaterally Neck Neck: Yes supple Resp Auscultation: clear to auscultation bilaterally Cardio Jugular venous distension: no JVD Rate: regular rate GI Palpation (GI): Soft to palpation Auscultation: normal bowel sounds General: Yes no CVA tenderness Back/Spine/Pelvis Back: no CVA tenderness Skin General skin exam: no rashes or lesions noted Neuro General: patient oriented x3 and moves all extremities Extrem General: Yes no pedal edema Assessment & Plan Assessment & Plan (1) Hypertension: Code(s): I10 - Essential (primary) hypertension Category: Medical Qualifiers: Hypertension type: primary hypertension Qualified Code(s): I10 - Essential (primary) hypertension (2) Proteinuria due to type 2 diabetes mellitus: Code(s): E11.29 - Type 2 diabetes mellitus with other diabetic kidney complication; R80.9 - Proteinuria, unspecified Category: Medical (3) CKD stage 3 secondary to diabetes: Code(s): E11.22 - Type 2 diabetes mellitus with diabetic chronic kidney disease; N18.30 - Chronic kidney disease, stage 3 unspecified Category: Medical (4) Hyperkalemia: Code(s): E87.5 - Hyperkalemia Category: Medical (5) Renal tubular acidosis, type 4: Code(s): N25.89 - Other disorders resulting from impaired renal tubular function Category: Medical Plan Annabella has chronic kidney disease from diabetic nephropathy. She has H/O Type 4 RTA & has significant proteinuria. She was having progression of her renal disease. She should continue to hold her CARLO-inhibitor. I increased her Kayexalate to 30 g thrice a week. She has not been getting Jardiance becos of insurance issues. I asked her to increase NaHCO3 to twice a day . She was encouraged to maintain her blood sugar at goal. She avoids nonsteroidal anti-inflammatory medication and should maintain good hydration. I did not make any other medication changes and addressed all her questions and concerns. Follow-up given Orders: Orders Blood Urea Nitrogen 2 Months E11.22 - Type 2 diabetes mellitus with diabetic chronic kidney disease, E11.29 - Type 2 diabetes mellitus with other diabetic kidney complication, E87.5 - Hyperkalemia, I10 - Essential (primary) hypertension, N18.30 - Chronic kidney disease, stage 3 unspecified, N25.89 - Other disorders resulting from impaired renal tubular function, R80.9 - Proteinuria, unspecified Electrolytes 1 Month E11.22 - Type 2 diabetes mellitus with diabetic chronic kidney disease, E11.29 - Type 2 diabetes mellitus with other diabetic kidney complication, E87.5 - Hyperkalemia, I10 - Essential (primary) hypertension, N18.30 - Chronic kidney disease, stage 3 unspecified, N25.89 - Other disorders resulting from impaired renal tubular function, R80.9 - Proteinuria, unspecified Creatinine 1 Month E11.22 - Type 2 diabetes mellitus with diabetic chronic kidney disease, E11.29 - Type 2 diabetes mellitus with other diabetic kidney complication, E87.5 - Hyperkalemia, I10 - Essential (primary) hypertension, N18.30 - Chronic kidney disease, stage 3 unspecified, N25.89 - Other disorders resulting from impaired renal tubular function, R80.9 - Proteinuria, unspecified Electrolytes 2 Months E11.22 - Type 2 diabetes mellitus with diabetic chronic kidney disease, E11.29 - Type 2 diabetes mellitus with other diabetic kidney complication, E87.5 - Hyperkalemia, I10 - Essential (primary) hypertension, N18.30 - Chronic kidney disease, stage 3 unspecified, N25.89 - Other disorders resulting from impaired renal tubular function, R80.9 - Proteinuria, unspecified Creatinine 2 Months E11.22 - Type 2 diabetes mellitus with diabetic chronic kidney disease, E11.29 - Type 2 diabetes mellitus with other diabetic kidney complication, E87.5 - Hyperkalemia, I10 - Essential (primary) hypertension, N18.30 - Chronic kidney disease, stage 3 unspecified, N25.89 - Other disorders resulting from impaired renal tubular function, R80.9 - Proteinuria, unspecified Blood Urea Nitrogen 1 Month E11.22 - Type 2 diabetes mellitus with diabetic chronic kidney disease, E11.29 - Type 2 diabetes mellitus with other diabetic kidney complication, E87.5 - Hyperkalemia, I10 - Essential (primary) hypertension, N18.30 - Chronic kidney disease, stage 3 unspecified, N25.89 - Other disorders resulting from impaired renal tubular function, R80.9 - Proteinuria, unspecified Coding Level of Care Code Est Pt Level 4 (66895) Diagnoses Primary hypertension I10 Hypertension type: primary hypertension Proteinuria due to type 2 diabetes mellitus .; R80.9 CKD stage 3 secondary to diabetes E11.; N18.30 Hyperkalemia E87.5 Renal tubular acidosis, type 4 N25.89
[2024-09-27 15:04] VITALS: BP 134/70; PULSE 90; O2SAT 98; BMI 23.6
== END 2024-09-27 15:13 | disposition home or self-care (01) ==
LOC: HO.HKA 14:50
PROVIDERS: PCP Student in an Organized Health Care Education/Training Program; Visit Provider Internal Medicine Nephrology
DX: I10 Essential (primary) hypertension (principal); E11.29 Type 2 diabetes mellitus with other diabetic kidney complication; R80.9 Proteinuria, unspecified; E11.22 Type 2 diabetes mellitus with diabetic chronic kidney disease; N18.30 Chronic kidney disease, stage 3 unspecified; E87.5 Hyperkalemia; N25.89 Other disorders resulting from impaired renal tubular function
CPT/HCPCS: 99214

== ENCOUNTER 2025-02-21 15:17 | Outpatient (AMB) | payer OTHER, MEDICARE, SELFPAY ==
--- NOTE | 2025-02-21 15:55 | HO.NEPHOV_ITS ---
Vital Signs 02/21/25 15:56 Height 5 ft 1 in Weight 118 lb 6 oz BMI 22.4 BP 168/70 H Blood Pressure Location Lt brachial Position Sitting Pulse 81 Pulse Source Pulse Oximeter Pulse Oximetry (%) 100 Oxygen Delivery Method Room Air Intake Visit Reasons: 2 mo f/u w/ labs, r/s from 12/13-[facility] Patients Transporter Required: No Accompanied by: Spouse Allergies amoxicillin Allergy (Verified 02/21/25 15:55) Anaphylaxis sodium zirconium cyclosilicate (From Lokelma) Allergy (Verified 02/21/25 15:55) Unknown Sulfa (Sulfonamide Antibiotics) Allergy (Verified 02/21/25 15:55) Shortness of Breath HPI Comments Details: Annabella was seen in follow-up of her diabetic nephropathy and chronic kidney disease. Her blood sugar control is better. She has taken is SGLT2 inhibitor in the past but had to come off it. She denies any dizziness, nausea, vomiting, diarrhea or urinary symptoms. She has no pedal edema. She denies any chest pain, shortness of breath, proximal nocturnal dyspnea, orthopnea. She tries to maintain good hydration. She avoids nonsteroidal anti-inflammatory use. Her s gabriella creatinine is stable [facility] Medical History (Updated 03/06/23 @ 16:26 by Terrence Coelho MD) Hyperkalemia Edema Proteinuria due to type 2 diabetes mellitus Chronic kidney disease Diabetic acidosis, type II Surgical History History of lumpectomy Family History Mother Diabetes Maternal Grandmother Cancer Diabetes Social History Alcohol intake: never Patient Tobacco Use Status: Never used Tobacco Review of Systems Const All systems reviewed & are unremarkable except as noted in HPI and below Physical Exam Vital Signs: Last Vital Signs Pulse 81 02/21/25 15:56 BP 168/70 H 02/21/25 15:56 Pulse Ox 100 02/21/25 15:56 Oxygen Delivery Method Room Air 02/21/25 15:56 BMI result Body Mass Index 22.4 Const General: comfortable and no acute distress Orientation/consciousness: patient oriented x3 HEENT Head: Yes normocephalic Mouth: Normal oral and palatal mucosa present Eyes EOM: EOMs intact bilaterally Neck Neck: Yes supple Resp Auscultation: clear to auscultation bilaterally Cardio Jugular venous distension: no JVD Rate: regular rate GI Palpation (GI): Soft to palpation Auscultation: normal bowel sounds General: Yes no CVA tenderness Back/Spine/Pelvis Back: no CVA tenderness Skin General skin exam: no rashes or lesions noted Neuro General: patient oriented x3 and moves all extremities Extrem General: Yes no pedal edema Assessment & Plan Assessment & Plan (1) Hypertension: Code(s): I10 - Essential (primary) hypertension Category: Medical Qualifiers: Hypertension type: primary hypertension Qualified Code(s): I10 - Essential (primary) hypertension (2) CKD stage 3 secondary to diabetes: Code(s): E11.22 - Type 2 diabetes mellitus with diabetic chronic kidney disease; N18.30 - Chronic kidney disease, stage 3 unspecified Category: Medical Plan Annabella has chronic kidney disease from diabetic nephropathy. She has H/O Type 4 RTA & has significant proteinuria. She was having progression of her renal disease. She should continue to hold her CARLO-inhibitor. C/W Kayexalate 30 g thrice a week. She has not been getting Jardiance becos of insurance issues. C/W NaHCO3 twice a day . She was encouraged to maintain her blood sugar at goal. She avoids nonsteroidal anti-inflammatory medication and should maintain good hydration. I did not make any other medication changes and addressed all her questions and concerns. Follow-up given Orders: Orders Blood Urea Nitrogen 3 Months E11.22 - Type 2 diabetes mellitus with diabetic chronic kidney disease, I10 - Essential (primary) hypertension, N18.30 - Chronic kidney disease, stage 3 unspecified Creatinine 3 Months E11.22 - Type 2 diabetes mellitus with diabetic chronic kidney disease, I10 - Essential (primary) hypertension, N18.30 - Chronic kidney disease, stage 3 unspecified Electrolytes 3 Months E11.22 - Type 2 diabetes mellitus with diabetic chronic kidney disease, I10 - Essential (primary) hypertension, N18.30 - Chronic kidney disease, stage 3 unspecified Coding Level of Care Code Est Pt Level 4 (57989) Diagnoses Primary hypertension I10 Hypertension type: primary hypertension CKD stage 3 secondary to diabetes E11.22; N18.30
[2025-02-21 15:56] VITALS: BP 168/70; PULSE 81; O2SAT 100; BMI 22.4
--- OUTSIDE RECORDS SUMMARY | 2025-02-21 19:17 | XMS_ITS | Data Portability ---
Author Organization [facility], Main Office Address [address] [facility] [address] [place] [id number] Care Team Providers Care Media Coordinator Name Role Phone YOCASTA GARCIA Film Recordist FELICITA RAMIREZ Assembler Erector LIBIA COELHO Emergency Department Clinician MADELINE MESSER Primary Care Provider [facility] Referring Provider [phone] Assessment Encounter Date Assessment Date Assessment LastModified by Organization Details LastModified Time 11/10/2023 11/10/2023 This service was provided using telemedicine. Patient consented to video & audio visit Patient was located in the [facility]. Provider was located in the office. No other persons participated in the telemedicine visit except for the patient unless otherwise indicated here. Total time of visit was 15 minutes. Not available 11/10/2023 16:17:11 Plan of Treatment Reminders Order Date Submit Date Provider Last Modified By Organization Details Last Modified Time Details Appointments Foll ow Up DM 30 2025 09:30A M Sendy Ulloa PA-C Not available Not available Not available FOLL OW UP 2025 02:45P Ruel MESSER MD Not available Not available Not available Lab HbA1 c (hem oglo bin A1c) , molinao d 2024 025 DARIUSZ [facility] (Centralized Electronic Ordering - All Locations), Patient Can Go To The Location Of Their Choice, [id number] 09/25/2024 06:07:45 ALT (ala veronica earl ), seru m or plas ma 2024 025 DARIUSZ [facility] (Centralized Electronic Ordering - All Locations), Patient Can Go To The Location Of Their Choice, [id number] 09/25/2024 06:07:46 lipi d pane l, seru m 2024 025 lmulerovalle [facility], [address], [place], [address], 07/26/2024 13:32:24 BMP, seru m or plas ma 2024 025 DARIUSZ [facility], [address], [place], [address], 09/25/2024 06:07:43 CBC w/ auto diff 2024 025 DARIUSZ [facility], [address], [place], [address], 09/25/2024 06:07:43 TSH, ultr a-se nsit leia, seru m 2024 025 lmulerovalle [facility], [address], [place], [address], 07/26/2024 13:32:24 Referral ENT surg yogesh refe rral - mri brai n show ed righ t side d effu cyndi in the mast oid aaron robert ve of poss ible mast oidi tis. pt asym ptom atic , no symp toms of ear infe ctio n. 2023 024 [email or web address] [facility], [address], [place], [address], 11/21/2023 11:42:35 Procedures colo nosc opy scre ajit g (PRO C) 2024 025 ATHENAX [facility], [address], [place], [address], 11/08/2024 13:53:11 Surgeries None jose rded . Imaging None jose rded . Medication Orders rosu vast atin 20 mg tabl et 2024 025 [id number], [address] [place], [address], 11/08/2024 13:19:34 insu geetha lisp ro (U-1 00) 100 unit /mL subc utan eous pen 2024 025 [place] [facility], [address] [place], [address], 11/08/2024 13:02:08 rosu vast atin 20 mg tabl et 2024 025 [facility], [address] [place], [address], 11/08/2024 13:18:56 famo tidi ne 20 mg tabl et 2024 025 [id number] [facility], [address] [place], [address], 12/30/2024 10:04:36 cipr oflo xaci n 0.2 % ear drop s in a drop adelia tte 2023 024 DARIUSZ Not available 02/19/2024 13:46:41 Patient TargetsNo targets recorded. Patient Instructions Encounter Date Encounter Id Patient Instructions Last Modified By Organization Details Last Modified Time 11/10/2023 [id number] mastoiditis: car e instructions Not available 11/10/2023 16:22:17 04/26/2024 [id number] hyperkalemia: ca re instructions Not available 04/26/2024 10:15:47 gastroesophageal reflux disease (GERD): care instructions Not available 04/26/2024 10:15:47 09/27/2024 [id number] Medications (OTC , herbal therapies, supplements) reviewed and reconciled with patient and or caregiver, including potential side effects, drug interactions, instructions, and the consequences of not taking medication. Reviewed potential barriers to medication adherence, such as side effects from medication or cost of medication. [email or web address] Not available 09/27/2024 13:54:25 11/08/2024 [id number] hyperkalemia: ca re instructions Not available 11/08/2024 13:16:04 gastroesophageal reflux disease (GERD): care instructions Not available 11/08/2024 13:16:04 Reason for Referral ENT Surgery Referral for Chr onic mastoiditis mri brain showed right sided effusion in the mastoid indicative of possible mastoiditis. pt asymptomatic, no symptoms of ear infection. Referring Physician: Madeline Mseser, Family Medicine, Encounter Date: 11/10/2023 Results Created Date Observation Date Name Description Value Unit Range Abnormal Flag Note LastModifiedBy Organization Detail LastModifiedTime 01/23/2001/24/2024 BASIC METAB OLIC PANEL (8) glucose 277 mg/dL 70-99 above high normal Not Available [facility] ([facility]) [address] [place], [address], 01/24/2024 06:09:19 01/23/2001/24/2024 BASIC METAB OLIC PANEL (8) BUN 41 mg/dL 8-27 above high normal Not Available [facility] ([facility]) [address] [place], [address], 01/24/2024 06:09:19 01/23/2001/24/2024 BASIC METAB OLIC PANEL (8) creatinine 1.94 mg/dL 0.57-1 .00 above high normal Not Available [facility] ([facility]) [address] [place], [address], 01/24/2024 06:09:19 01/23/2001/24/2024 BASIC METAB OLIC PANEL (8) eGFR 28 mL/mi n/1.7 3 >59 below low normal Not Available [facility] ([facility]) [address] [place], [address], 01/24/2024 06:09:19 01/23/20 24 01/24/2024 BASIC METAB OLIC PANEL (8) BUN/creatini ne ratio 21 12-28 normal Not Available [facility] ([facility]) [address] [place], [address], 01/24/2024 06:09:19 01/23/20 24 01/24/2024 BASIC METAB OLIC PANEL (8) sodium 136 mmol/ L 134-14 4 normal Not Available [facility] ([facility]) [address] [place], [address], 01/24/2024 06:09:19 01/23/2001/24/2024 BASIC METAB OLIC PANEL (8) potassium 5.7 mmol/ L 3.5-5. 2 above high normal Not Available [facility] ([facility]) [address] [place], [address], 01/24/2024 06:09:19 01/23/20 24 01/24/2024 BASIC METAB OLIC PANEL (8) chloride 104 mmol/ L 96-106 normal Not Available [facility] ([facility]) [address] [place], [address], 01/24/2024 06:09:19 01/23/20 24 01/24/2024 BASIC METAB OLIC PANEL (8) carbon dioxide, total 18 mmol/ L 20-29 below low normal Not Available [facility] ([facility]) [address] [place], [address], 01/24/2024 06:09:19 01/23/20 24 01/24/2024 BASIC METAB OLIC PANEL (8) calcium 9.4 mg/dL 8.7-10 .3 normal Not Available [facility] ([facility]) [address] [place], [address], 01/24/2024 06:09:19 01/23/20 24 01/24/2024 HEMOG LOBIN A1C hemoglobin A1C 12.1 % 4.8-5. 6 above high normal Predi abete s: 5.7 - 6.4 Diabe diogo: >6.4 Glyce jyothi contr ol for adult s with diabe diogo: <7.0 Not Available [facility] ([facility]) [address] [place], [address], 01/24/2024 06:09:20 09/25/1909/25/2024 CBC WITH DIFFE RENTI AL/PL ATELE T WBC 6.2 x10e3 /uL 3.4-10 .8 normal Not Available [facility] ([facility]) [address] [place], [address], 09/25/2024 06:07:42 09/25/19 25 09/25/2024 CBC WITH DIFFE RENTI AL/PL ATELE T RBC 4.47 x10e6 /uL 3.77-5 .28 normal Not Available [facility] ([facility]) [address] [place], [address], 09/25/2024 06:07:42 09/25/19 25 09/25/2024 CBC WITH DIFFE RENTI AL/PL ATELE T hemoglobin 13.1 g/dL 11.1-1 5.9 normal Not Available [facility] ([facility]) [address] [place], [address], 09/25/2024 06:07:42 09/25/19 25 09/25/2024 CBC WITH DIFFE RENTI AL/PL ATELE T hematocrit 41.2 % 34.0-4 6.6 normal Not Available [facility] ([facility]) [address] [place], [address], 09/25/2024 06:07:42 09/25/19 25 09/25/2024 CBC WITH DIFFE RENTI AL/PL ATELE T MCV 92 fL 79-97 normal Not Available [facility] ([facility]) [address] [place], [address], 09/25/2024 06:07:42 09/25/19 25 09/25/2024 CBC WITH DIFFE RENTI AL/PL ATELE T MCH 29.3 pg 26.6-3 3.0 normal Not Available [facility] ([facility]) [address] [place], [address], 09/25/2024 06:07:42 09/25/19 25 09/25/2024 CBC WITH DIFFE RENTI AL/PL ATELE T MCHC 31.8 g/dL 31.5-3 5.7 normal Not Available [facility] ([facility]) [address] [place], [address], 09/25/2024 06:07:42 09/25/19 25 09/25/2024 CBC WITH DIFFE RENTI AL/PL ATELE T RDW 14.1 % 11.7-1 5.4 Not Available [facility] ([facility]) [address] [place], [address], 09/25/2024 06:07:42 09/25/19 25 09/25/2024 CBC WITH DIFFE RENTI AL/PL ATELE T platelets 318 x10e3 /uL 150-45 0 normal Not Available [facility] ([facility]) [address] [place], [address], 09/25/2024 06:07:42 09/25/19 25 09/25/2024 CBC WITH DIFFE RENTI AL/PL ATELE T neutrophils 46 % not estab. normal Not Available [facility] ([facility]) [address] [place], [address], 09/25/2024 06:07:42 09/25/19 25 09/25/2024 CBC WITH DIFFE RENTI AL/PL ATELE T lymphs 39 % not estab. normal Not Available [facility] ([facility]) [address] [place], [address], 09/25/2024 06:07:42 09/25/19 25 09/25/2024 CBC WITH DIFFE RENTI AL/PL ATELE T monocytes 9 % not estab. normal Not Available [facility] ([facility]) [address] [facility], [place], [address], 09/25/2024 06:07:42 09/25/19 25 09/25/2024 CBC WITH DIFFE RENTI AL/PL ATELE T eos 5 % not estab. normal Not Available [facility] ([facility]) [address] [facility], [place], [address], 09/25/2024 06:07:42 09/25/19 25 09/25/2024 CBC WITH DIFFE RENTI AL/PL ATELE T basos 1 % not estab. normal Not Available [facility] ([facility]) [address] [place], [address], 09/25/2024 06:07:42 09/25/19 25 09/25/2024 CBC WITH DIFFE RENTI AL/PL ATELE T immature cells DICE DEALER Not Available [facility] ([facility]) [address] [place], [address], 09/25/2024 06:07:42 09/25/19 25 09/25/2024 CBC WITH DIFFE RENTI AL/PL ATELE T neutrophils (absolute) 2.9 x10e3 /uL 1.4-7. 0 normal Not Available [facility] ([facility]) [address] [place], [address], 09/25/2024 06:07:42 09/25/19 25 09/25/2024 CBC WITH DIFFE RENTI AL/PL ATELE T lymphs (absolute) 2.4 x10e3 /uL 0.7-3. 1 normal Not Available [facility] ([facility]) [address] [place], [address], 09/25/2024 06:07:42 09/25/19 25 09/25/2024 CBC WITH DIFFE RENTI AL/PL ATELE T monocytes(ab solute) 0.5 x10e3 /uL 0.1-0. 9 normal Not Available [facility] ([facility]) [address] [facility], [place], [address], 09/25/2024 06:07:42 09/25/19 25 09/25/2024 CBC WITH DIFFE RENTI AL/PL ATELE T eos (absolute) 0.3 x10e3 /uL 0.0-0. 4 normal Not Available [facility] ([facility]) [address] [place], [address], 09/25/2024 06:07:42 09/25/19 25 09/25/2024 CBC WITH DIFFE RENTI AL/PL ATELE T baso (absolute) 0.1 x10e3 /uL 0.0-0. 2 normal Not Available [facility] ([facility]) [address] [facility], [place], [address], 09/25/2024 06:07:42 09/25/19 25 09/25/2024 CBC WITH DIFFE RENTI AL/PL ATELE T immature granulocytes 0 % not estab. Not Available [facility] ([facility]) [address] [place], [address], 09/25/2024 06:07:42 09/25/19 25 09/25/2024 CBC WITH DIFFE RENTI AL/PL ATELE T immature grans (abs) 0.0 x10e3 /uL 0.0-0. 1 Not Available [facility] ([facility]) [address] [place], [address], 09/25/2024 06:07:42 09/25/19 25 09/25/2024 CBC WITH DIFFE RENTI AL/PL ATELE T NRBC DICE DEALER Not Available [facility] ([facility]) [address] [place], [address], 09/25/2024 06:07:42 09/25/19 25 09/25/2024 CBC WITH DIFFE ANDREA AL/PL RIA Lord hematology comments: DICE DEALER Not Available [facility] ([facility]) [address] [facility], [place], [address], 09/25/2024 06:07:42 09/25/19 25 09/25/2024 BASIC METAB OLIC PANEL (8) glucose 137 mg/dL 70-99 above high normal Not Available [facility] ([facility]) [address] [facility], [place], [address], 09/25/2024 06:07:43 09/25/19 25 09/25/2024 BASIC METAB OLIC PANEL (8) BUN 37 mg/dL 8-27 above high normal Not Available [facility] ([facility]) [address] [facility], [place], [address], 09/25/2024 06:07:43 09/25/19 25 09/25/2024 BASIC METAB OLIC PANEL (8) creatinine 1.88 mg/dL 0.57-1 .00 above high normal Not Available [facility] ([facility]) [address] [facility], [place], [address], 09/25/2024 06:07:43 09/25/19 25 09/25/2024 BASIC METAB OLIC PANEL (8) eGFR 29 mL/mi n/1.7 3 >59 below low normal Not Available [facility] ([facility]) [address] [facility], [place], [address], 09/25/2024 06:07:43 09/25/19 25 09/25/2024 BASIC METAB OLIC PANEL (8) BUN/creatini ne ratio 20 12-28 normal Not Available [facility] ([facility]) [address] [facility], [place], [address], 09/25/2024 06:07:43 09/25/19 25 09/25/2024 BASIC METAB OLIC PANEL (8) sodium 139 mmol/ L 134-14 4 normal Not Available [facility] ([facility]) [address] [place], [address], 09/25/2024 06:07:43 09/25/19 25 09/25/2024 BASIC METAB OLIC PANEL (8) potassium 5.6 mmol/ L 3.5-5. 2 above high normal Not Available [facility] ([facility]) [address] [place], [address], 09/25/2024 06:07:43 09/25/19 25 09/25/2024 BASIC METAB OLIC PANEL (8) chloride 101 mmol/ L 96-106 normal Not Available [facility] ([facility]) [address] [place], [address], 09/25/2024 06:07:43 09/25/19 25 09/25/2024 BASIC METAB OLIC PANEL (8) carbon dioxide, total 19 mmol/ L 20-29 below low normal Not Available [facility] ([facility]) [address] [place], [address], 09/25/2024 06:07:43 09/25/19 25 09/25/2024 BASIC METAB OLIC PANEL (8) calcium 10.3 mg/dL 8.7-10 .3 normal Not Available [facility] ([facility]) [address] [place], [address], 09/25/2024 06:07:43 09/25/19 25 09/25/2024 LIPID PANEL cholesterol, total 260 mg/dL 100-19 9 above high normal Not Available [facility] ([facility]) [address] [place], [address], 09/25/2024 06:07:44 09/25/19 25 09/25/2024 LIPID PANEL triglyceride s 158 mg/dL 0-149 above high normal Not Available [facility] ([facility]) [address] [place], [address], 09/25/2024 06:07:44 09/25/19 25 09/25/2024 LIPID PANEL HDL cholesterol 46 mg/dL >39 normal Not Available [facility] ([facility]) [address] [place], [address], 09/25/2024 06:07:44 09/25/19 25 09/25/2024 LIPID PANEL VLDL cholesterol ping 29 mg/dL 5-40 Not Available [facility] ([facility]) [address] [place], [address], 09/25/2024 06:07:44 09/25/19 25 09/25/2024 LIPID PANEL LDL chol calc ([facility]) 185 mg/dL 0-99 above high normal Not Available [facility] ([facility]) [address] [place], [address], 09/25/2024 06:07:44 09/25/19 25 09/25/2024 LIPID PANEL LDL calc comment: DICE DEALER Not Available [facility] ([facility]) [address] [place], [address], 09/25/2024 06:07:44 09/25/19 25 09/25/2024 HEMOG LOBIN A1C hemoglobin A1C 6.1 % 4.8-5. 6 above high normal Predi abete s: 5.7 - 6.4 Diabe diogo: >6.4 Glyce jyothi contr ol for adult s with diabe diogo: <7.0 Not Available [facility] ([facility]) [address] [place], [address], 09/25/2024 06:07:45 09/25/19 25 09/25/2024 TSH RFX ON ABNOR MAL TO FREE T4 TSH 4.480 uIU/m L 0.450- 4.500 normal Not Available [facility] ([facility]) [address] [place], [address], 09/25/2024 06:07:45 09/25/19 25 09/25/2024 ALT (SGPT ) ALT (SGPT) 13 IU/L 0-32 normal Not Available [facility] ([facility]) [address] [facility], [place], [address], 09/25/2024 06:07:46 02/22/20 25 02/21/2025 POCT GLUCO SE, BLOOD glucose poct 64 mg/dL 70-100 low Not Available [facility] [address] [place], [address], 02/21/2025 12:44:51 02/22/20 25 02/21/2025 POCT GLUCO SE, BLOOD note See Report low [facility], [address], [place], [place] [address] Not Available [facility] [address] [place], [address], 02/21/2025 12:44:51 11/06/19 24 11/03/2023 MRI, brain , w/o contr ast No observ ation record ed. [facility] [address], [address], 2023 15:07:16 02/22/20 25 EGD No observ ation record ed. INTERFACE [facility] [address] [place], [address], 02/21/2025 13:36:12 Result Notes None recorded. Problems Name Problem SNOMED Code Status Onset Date Resolution Date Notes Provider Name and Address Organization Details Recorded Time Postmeno pausal bleeding 08679687 Completed 07/25/2016 Garrett reilly [facility] 7 11:21:51 Body mass index 30+ - obesity 442660619 Completed 07/25/2016 Garrett reilly [facility] 7 11:22:07 Malignan t neoplasm of breast 474108802 Active 2010 MJ Latif, [facility] 3 12:53:44 Screenin g for malignan t neoplasm of colon Completed 201210/01/2013 RECORDED 05/29/19 13 1:01PM BY KANE ABURTO MA, ANNOTATI ON/ADDEN DUM Shazia Steele MA null, [facility] 6 08:43:35 Type 2 diabetes mellitus without complica tion 253403280 Completed 201210/01/2013 IMPRESSI ON: NEEDS TO ADD EXERCISE AND LOWER CARBS; RECORDED 05/29/19 13 2:07PM BY BRIAN RIGGS PA-C, ANNOTATI ON/ADDEN DUM Garrett reilly, [facility] 7 12:03:28 Influenz a vaccine needed [id number] 06 Completed 201210/01/2013 RECORDED 05/29/19 13 1:01PM BY KANE ABURTO MA, RADHA ON/ADDEN DUM Sendy Ulloa PA-C [address] [address], [place], [address] , [facility] 6 14:50:07 Essentia l hyperten cyndi 53326674 Completed 201210/01/2013 RECORDED 05/29/19 13 1:02PM BY KANE ABURTO MA, ANNOTATI ON/ADDEN DUM Ann-Marie Gonzalez [facility] 0 11:29:25 Vitamin D deficien cy 90762048 Completed 201210/01/2013 IMPRESSI ON: WAS ON 50,OOO UNITS AND NOW ON DAILY, LEVEL WAS LOW LAST YEAR; RECORDED 05/29/19 13 1:01PM BY KANE ABURTO MA, RADHA ON/ADDEN DUM Sendy Ulloa PA-C [address] [address], [place], [address] , [facility] 6 14:50:07 Screenin g for malignan t neoplasm of colon Completed 201210/28/2013 RECORDED 05/29/19 13 1:01PM BY KANE ABURTO MA, ANNOTATI ON/ADDEN DUM Shazia Steele MA null, [facility] 6 08:43:35 Influenz a vaccine needed [id number] 06 Completed 201210/28/2013 RECORDED 05/29/19 13 1:01PM BY KANE ABURTO MA, ANNOTATI ON/ADDEN DUM Sendy Ulloa PA-C [address], [place], [address] , [facility] 6 14:50:07 Essentia l hyperten cyndi 54234184 Completed 201210/28/2013 RECORDED 05/29/19 13 1:02PM BY KANE ABURTO MA, ANNOTATI ON/ADDEN DUM Ann-Marie Gonzalez null, [facility] 0 11:29:25 Vitamin D deficien cy 29466363 Completed 201210/28/2013 IMPRESSI ON: WAS ON 50,OOO UNITS AND NOW ON DAILY, LEVEL WAS LOW LAST YEAR; RECORDED 05/29/19 13 1:01PM BY KANE ABURTO MA, ANNOTATI ON/ADDEN DUM Sendy Ulloa PA-C [address] [facility] [address], [place], [address] , [facility] 6 14:50:07 Patient status finding [id number] Completed 201201/25/2016 RECORDED 07/31/19 13 2:46PM BY SHAZIA STEELE, OFFICE VISIT Shazia Steele MA null, [facility] 6 08:43:20 Primary malignan t neoplasm of female breast 16865130 Completed 201203/26/2019 DX 2011 RIGHT BREAST TX WITH LUMPECTO MY, 3 LYMPH NODES REMOVED, THEN RADIATIO N FOLLOWED BY DR SABILLON FOR ONCOLOGY Sendy Ulloa PA-C [address] [facility] [address], [facility] [place], [address] , [facility] 0 14:25:42 Type 2 diabetes mellitus without complica tion 230749994 Completed 201201/23/2017 RECORDED 07/31/19 13 2:37PM BY SHAZIA STEELE, OFFICE VISIT Garrett reilly [facility] 7 12:03:28 Uncontro lled type 2 diabetes mellitus 352542947 Completed 201201/25/2016 STORY: LABS 04/16/12 A1C 10.9.; IMPRESSI ON: VERY POOR CONTROL, RECENT AIC 9,3, NOT TESTING SUGARS, SKIPS MEALS, FEELS SUGARS UPA ND DOWN, PT STATES FELT UNWELL ON HIGHER THAN 500MG OF METFORMI N, PT WILL KEEP MEDS THE SAME, AD DMORE PROTEIN AND GO FOR WEIGHT LO2S BY CUTTRIDGE CARBRajan, WE WILL SET PT UP WITH DR Elaine, WILL BE A GOOD CANDIDAT E FOR LANTUS.; RECORDED 07/31/19 13 3:18PM BY GARRETT Curtis MD, OFFICE VISIT MJ Latif, [facility] 6 08:43:40 Disorder of thyroid gland 78808374 Active 2012 WAS ON MED, OFF NOW MJ Latif [facility] 3 11:15:56 Adult health examinat ion Completed 201201/25/2016 IMPRESSI ON: PT TO SET UP PAP, MAMMO UTD, GETS EVERY 6 MONTHS; RECORDED 08/16/19 13 11:39AM BY POLY BANDA, HISTORIC AL SUMMARY MJ Latif [facility] 6 08:43:30 Blood chemistr y outside referenc e range 011942413 Completed 201207/25/2016 RECORDED 08/21/19 13 3:13PM BY GARRETT Curtis MD, PHONE ENCOUNTE R [facility] 7 11:20:56 Screenin g for malignan t neoplasm of colon Completed 201201/25/2016 RECORDED 09/28/19 13 2:32PM BY FISH LUGO , LAB REQ MJ Latif, [facility] 6 08:43:35 Laborato ry procedur e performe d [id number] Completed 201301/25/2016 RECORDED 05/24/19 14 2:25PM BY KEAGAN ZEPEDA, LAB REQ MJ Latif, [facility] 6 08:43:25 Renal disorder due to type 2 diabetes mellitus 358850052 Active 2016 Not Available [facility] 0 14:09:52 Chronic kidney disease stage 1 571531681 Completed 201603/27/2017 Sendy Ulloa PA-C [address], [place], [address] , [facility] 4 09:37:25 Hyperten sive renal disease 80837598 Active 2016 Not Available [facility] 0 14:09:52 Chronic kidney disease stage 2 728102284 Completed 201703/11/2019 Sendy Ulloa PA-C [address], [place], [address] , [facility] 9 10:45:46 Hyperlip idemia 12307627 Completed 201708/04/2022 MADELINE MESSER MD [address], [place], [address] , [facility] 3 19:48:43 Chronic kidney disease stage 3 due to type 2 diabetes mellitus 25243670151 5 Completed 201703/26/2019 Ann-Marie reilly, [facility] 0 16:06:25 Obesity 809079317 Active 2018 MJ Latif, [facility] 3 11:15:56 Chronic kidney disease stage 3 609231869 Completed 201810/23/2020 Sendy Ulloa PA-C [address] [facility] [address], [place], [address] , [facility] 1 11:24:48 Microalb uminuria 252585080 Active 2019 Not Available [facility] 0 14:09:52 Noncompl iance with treatmen t 3047902 Active 2019 MJ Latif, [facility] 3 11:15:56 Chronic kidney disease stage 3B 276797497 Active 2020 MJ Latif, [facility] 3 12:53:44 Mixed hyperlip idemia 109677090 Active 2022 MJ Latif, [facility] 3 11:15:56 Hyperkal emia 99792640 Active 2022 Justo Medeiros MD [address] [facility] [address], [place], [address] , [facility] 3 04:35:12 Gastroes ophageal reflux disease without esophagi tis 513740963 Active 2024 Kiki Ortiz [facility] 5 14:18:22 Problem Notes None recorded. Procedures Surgical History Date Name Laterality Status Provider Name and Address Organization Details Recorded Time 08/28/19 24 Most Recent Mammogram completed Renay Lee [facility] 08/28/2023 11:14:34 05/25/19 diabetic retinopathy screening completed Renay Lee [facility] 06/30/2023 08:47:36 08/06/19 Diabetic Foot Exam (Monofilament) completed MADELINE MESSER MD [address] [facility] [address], [place], [address], [facility] 08/05/2022 13:30:00 03/20/19 22 Date of Last Pap Smear completed Shazia Steele MA [facility] 04/08/2022 13:03:50 10/24/19 21 Diabetic Foot Exam (Monofilament) completed Mikaela Issa MA [facility] 10/23/2020 10:35:13 10/20/19 21 Diabetic Foot Exam (Monofilament) completed Nanette Tapia MA [facility] 10/19/2020 15:17:02 05/01/19 21 Diabetic Foot Exam (Monofilament) cancelled Mikaela Issa MA [facility] 05/01/2020 11:27:35 02/14/20 20 Mammogram screening completed Patito Banda [facility] 02/17/2020 14:55:16 03/26/19 20 Diabetic Foot Exam (Monofilament) completed Sendy QUICK-C [address] [facility] [address] [facility], [place], [address], [facility] 03/26/2019 14:15:41 03/11/20 19 Diabetic Foot Exam (Monofilament) completed Olga Jacob [facility] 03/11/2019 10:24:03 06/05/19 19 Diabetic Foot Exam (Monofilament) completed Sendy QUICK-C [address] [facility] [address] [facility], [place], [address], [facility] 06/04/2018 15:02:54 12/27/19 18 Date of Last Colonoscopy completed Patito Banda [facility] 12/28/2017 10:11:50 12/27/19 18 Colonoscopy completed Patito Banda [facility] 12/28/2017 10:11:45 08/22/19 18 Diabetic Foot Exam (Monofilament) completed Jessica Solorzano [facility] 08/21/2017 11:01:40 08/05/19 18 Excision of Melanoma completed Halle Piña [facility] 08/18/2017 10:48:25 05/01/19 18 biopsy completed Shyanne hernandez MA [facility] 01/06/2020 08:53:48 03/20/19 16 Endometrial Ablation completed Shyanne hernandez MA [facility] 03/27/2017 13:13:32 03/20/19 15 Ultrasound breast limited completed Shyanne hernanedz MA [facility] 03/27/2017 13:06:30 Breast Surgery completed Shazia sandhu MA [facility] 07/20/2015 11:06:21 Lesion destruction completed Shazia Steele MA [facility] 07/31/2017 13:52:53 Imaging Results None recorded. Procedure Notes None recorded. Medical Equipment None Reported. Allergies Allergen ID Allergen Name Allergen Category Reaction Reaction Severity Criticality Documentation Date Start Date Code Code System Note Provider Name and Address Organization Details Recorded Time Substance with sulfonami de structure and antibacte rial mechanism of action (substanc e) medicatio n Not available Not available Not available 06/02/20142012 42108 8003 SNOMED Melissa reilly [facility] 5 14:00:40 99588 amoxicill in medicatio n Not available Not available Not available 04/08/20222021 723 RxNorm MJ Latif [facility] 3 12:52:43 99484 potassium chloride medicatio n edema Not available Not available 04/22/2022 8591 RxNorm Not Available [facility] 3 17:07:33 4546 Product containin g penicilli n (product) medicatio n Not available Not available Not available 10/01/20132012 21512 8001 SNOMED MJ Cárdenas [facility] 8 12:59:53 75112 Trulicity medicatio n nausea Not available Not available 06/23/2023 68952 96 RxNorm Sendy Ulloa PA-C [address] [facility] [address], [facility] [place], [address] , [facility] 4 12:49:41 Medications Name Sig Start Date [...] Not Available sodium polystyre ne sulfonate 15 gram oral powder USE 30 GRAMS( 2 BOTTLES) [...] sub-q route with meal(s) for 60 days. 11/08 completed Not Available Not Available Not Available Vitamin D3 25 mcg (1,000 unit) capsule Take 1 capsule every day by oral route. 09/27 completed Not Available Not Available Not Available rosuvasta tin 20 mg tablet TAKE 1 TABLET BY MOUTH EVERY DAY 2024 active Not Available Not Available Not Avai lable nitrofura ntoin monohydra te/macroc rystals 100 mg [...] Not Available Not Available Not Available Afluria 3778-2355 (PF) 45 mcg (15 mcg x 3)/0.5 [...] mass index (BMI) Body weight Oxygen saturation Heart rate Body temperature Systolic And Diastolic Provider Name and Address Organization Details Last Updated DateTime 5 154.94 cm 27.7 kg/m2 96804.2 9 g 100 % 86 /min 97.6 [degF] 148/83 mm[Hg] Shazia Steele MA [facility] 5 10:01:34 Date Recorded Systolic And Diastolic Provider Name and Address Organization Details Last Updated DateTime 09/27/2024 140/88 mm[Hg] Sendy Ulloa PA-C [address] [address], [place], [address] 09/27/2024 14:23:48 Date Recorded Body height Body mass index (BMI) Body weight Heart rate Oxygen saturation Body temperature Systolic And Diastolic Systolic And Diastolic Provider Name and Address Organization Details Last Updated DateTime 5 154.94 cm 23.6 kg/m2 60502.0 5 g 90 /min 99 % 98 [degF] 149/80 mm[Hg] 142/70 mm[Hg] Shyanne monroe MA [facility] 5 14:01:56 Date Recorded Body height Body mass index (BMI) Body weight Heart rate Oxygen saturation Body temperature Systolic And Diastolic Provider Name and Address Organization Details Last Updated DateTime 5 154.94 cm 23.3 kg/m2 90811.6 6 g 73 /min 100 % 97.2 [degF] 137/77 mm[Hg] Trista Vergara MA [facility] 5 13:01:32 Social History Question Answer Notes LastModified by Organizat ion Details LastModified Time Tobacco Smoking Status Never Smoker MJ Latif, [facility] 07/20/2015 11:08:43 Do You Have An Advance Directive? No Information not available 03/27/2017 Is Blood Transfusion Acceptable In An Emergency? Yes [email or web address] Information not available 07/20/2015 What Is Your Level Of Caffeine Consumption? Occasional Information not available 07/20/2015 How Much Tobacco Do You Chew? None Information not available 07/25/2016 What Type Of Diet Are You Following? REGULAR [email or web address] Information not available 07/20/2015 Which Illicit Or Recreational Drugs Have You Used? None Information not available 07/25/2016 Live Alone Or With Others? With Others (Mateusz) Information not available 03/27/2017 Do You Take Precautions To Prevent Distracted Driving? Yes [email or web address] Information not available 07/20/2015 How Often Do [...] Date Of Your Most Recent Tobacco Screening? 11/08/2024 [email or web address] Information not available 11/08/2024 How Many Children Do You Have? 0 Information not available 07/20/2015 Do You Use Protection During Sex? No Information not available 03/27/2017 Seat Belts Used Routinely Yes [email or web address] Information not available 07/20/2015 Are You Sexually Active? Yes Information not available 03/27/2017 Smoke Alarm In Home Yes [email or web address] Information not available 07/20/2015 At What Age Did You Start Smoking Tobacco? 0 Information not available 03/27/2017 Are You Passively Exposed To Smoke? No Information not available 07/25/2016 How Much Tobacco Do You Smoke? No Information not available 07/25/2016 Do You Use Sunscreen Routinely? Yes [email or web address] Information not available 07/20/2015 How Many Years [...] is your level of alcohol consumption? None [email or web address] Information not available 07/20/2015 Do you or have you ever used smokeless tobacco? Never used [email or web address] tobacco Information not available 01/06/2020 Are you currently employed? Yes [email or web address] Information not available 07/20/2015 Are you able to walk independently without assistance or assistive devices? [email or web address] Information not available 10/19/2020 Are you able to care for yourself independently? 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 Never used electronic cigarettes Information not available 01/06/2020 What is your exercise level? Occasional 2-3 times a week rides her stationary bike [email or web address] Information not available 04/08/2022 Mental Status None [...] Influenza, split virus, trivalent, preservative 5 completed Patitoalysha reilly [facility] 01/14/2020 15:48:48 Influenza, split virus, quadrivalent, preservative 7 [facility] 11:22:48 Influenza, split virus, quadrivalent, PF 9 completed MJ Latif [facility] 02/10/2023 11:22:48 Influenza, MDCK, quadrivalent, PF 0 completed Shazia Steele MJ melba [facility] 02/10/2023 11:22:48 COVID-19, mRNA, LNP-S, PF, 30 mcg/0.3 mL dose 1 completed Shazia Steele MJ melba [facility] 02/10/2023 11:22:48 COVID-19, mRNA, LNP-S, PF, 30 mcg/0.3 mL dose 1 completed Shazia Steele MJ melba [facility] 02/10/2023 11:22:48 pneumococcal polysaccharide PPV23 6 completed MJ Latif [facility] 02/10/2023 11:22:48 Tdap 9 completed Shazia Steele MJ melba [facility] 02/10/2023 11:22:48 Influenza, split virus, quadrivalent, PF 8 [facility] 11:22:48 COVID-19, mRNA, LNP-S, PF, 30 mcg/0.3 mL dose 2 completed MJ Latif [facility] 02/10/2023 11:16:21 COVID-19, mRNA, LNP-S, PF, 30 mcg/0.3 mL dose, kassidy-sucrose 2 completed MJ Latif [facility] 02/10/2023 11:16:21 COVID-19, mRNA, LNP-S, bivalent, PF, 50 mcg/0.5 mL or 25mcg/0.25 mL dose 2 completed MJ Latif [facility] 02/10/2023 11:16:21 Influenza, split virus, trivalent, PF 7 completed MJ Latif [facility] 02/10/2023 11:16:21 Influenza, MDCK, quadrivalent, PF 3 completed MJ Latif, [facility] 02/10/2023 11:22:48 Influenza, MDCK, quadrivalent, PF 2 completed MJ Latif, [facility] 02/10/2023 11:22:48 Influenza, split virus, quadrivalent, PF 6 completed MJ Latif [facility] 02/10/2023 11:22:48 Influenza, split virus, trivalent, PF 4 completed Strala Martelloralmatti, FAMILY SERVICE WORKER null, [facility] 02/19/2024 13:45:48 Pneumococcal conjugate PCV20, polysaccharide SIB949 conjugate, adjuvant, PF 5 completed Patito reilly, [facility] 01/31/2025 11:45:45 Influenza, split virus, trivalent, preservative 2 completed Patito reilly, [facility] 01/14/2020 15:48:49 Tdap 9 completed Patito Banda [facility] 01/14/2020 15:48:48 Past Encounters Encounter ID Performer Location Encounter Start Date Encounter Closed Date Diagnosis/Indication Diagnosis SNOMED-CT Code Diagnosis ICD10 Code Diagnosis IMO Codes Diagnosis Note [id number] [employer] [address] [facility] [facility] [place] [address] 04/16/2012 00:00:00 [id number] auto[employer] erce [address] [facility] [facility] [place] [address] 05/28/2012 00:00:00 [id number] auto[employer] erce [address] [facility] [facility] [place] [address] 07/30/2012 00:00:00 [id number] Garrett wellington MD Main Office [address] [facility] [address] [place] [address] 07/20/2015 10:51:11 07/20/2015 11:46:38 Adult health examination 240265047 Z00.00 utd on her screening except due for pneumovax due to DM, never had Uncontroll ed type 2 diabetes mellitus 839351840 E11.65 very poorly controlled , followed by but it does not seem like she is making progress, I introduced her to Sendy, she will meet with her in a month to discuss DM care, will stay with Dr Elaine for now History of malignant neoplasm of breast 668591313 Z85.[address] Sabillon in 09/02 will be 5 years, is on tamoxifen Administra tion of pneumococcal vaccine 42224095 Z23 Postmenopa usal bleeding 25913177 N95.0 after 4.5 years! is on tamoxifen, pt will set up appt [facility] Dr Tolbert for eval,s he knows this is important. [id number] Sendy Ulloa PA-C Main Office [address] [place] [address] 08/31/2015 12:52:30 08/31/2015 14:35:59 Uncontrolled type 2 diabetes mellitus 948629951 E11.65 Restart glucose monitoring TID. Referral to the GI and nutritioni st due to gastropare sis symptoms. Start Victoza at smallest dose as discussed. Increase januvia to 100 mg daily. Continue Glipizide and Metformin the same. If can not tolerate Victoza , will start insulin injections to improved glycemic control. F/u 4 weeks. Body mass index 30+ - obesity 926942279 Z68.30 [id number] Sendy Ulloa PA-C Main Office [address] [facility] [address] [facility] [address] 09/28/2015 13:36:31 09/28/2015 14:56:25 Uncontrolled type 2 diabetes mellitus 151740580 E11.65 Continue glucose monitoring TID. Start Victoza at smallest dose as discussed. stop januvia to 100 mg daily. Continue Glipizide and Metformin the same. If can not tolerate Victoza , will start insulin injections to improved glycemic control. F/u 4 weeks with repeat A1c. Body mass index 30+ - obesity 969469954 Z68.30 [id number] Sendy Ulloa PA-C Main Office [address] [facility] [address] [facility] [address] 11/02/2015 10:41:40 11/02/2015 11:54:49 Uncontrolled type 2 diabetes mellitus 554385840 E11.65 A1c is improved but not at [...] will be restarted at 100 mg daily. [id number] Sendy Ulloa PA-C Main Office [address] [facility] [address] [facility] [address] 01/04/2016 09:54:34 01/04/2016 10:39:26 Uncontrolled type 2 diabetes mellitus 298016288 E11.65 restart Trulicity at 0.75 mg weekly. Continue testing glucose 2-3 times daily. Continue Metfromin and switch to Glipizide ER 10 mg daily. F/u 6-8 weeks. [id number] Garrett wellington MD Main Office [address] [facility] [address] [place] [address] 01/25/2016 09:34:48 01/25/2016 10:20:32 Type 2 diabetes mellitus without complication 627291679 E11.9 doing better with control, needs to add exercise, use rowing machine! followup with Sendy for DM tx end of month ,e for PE in 6 months Essential hypertension 80262560 I10 well controlled continue meds [id number] Sendy Ulloa PA-C Main Office [address] [facility] [address] [place] [address] 02/15/2016 10:42:19 02/15/2016 11:51:10 Uncontrolled type 2 diabetes mellitus 251709439 E11.65 Glucose control is much improved. Pt. tolerates Trulicity well. Will continue at small dose Lower Glipizide ER to 10 mg daily and continue Metformin at 500 mg daily. F/u with repeat A1c in 6 weeks. Goal A1c is under 7%. [id number] Garrett wellington MD Main Office [address] [address] [place] [address] 07/25/2016 10:52:56 07/25/2016 11:40:33 Adult health examination 060068868 Z00.00 utd on mammogram and colonoscop y and pap, due for colonscopy next year, at 4 year jono not active, does not like exercise. Type 2 umang betes mellitus without complication 985703414 E11.9 pt thinks she has nausea from [...] istory of primary malignant neoplasm of breast 630544009 Z85.3 mammogram once a year, utd Essential hypertension 00547963 I10 well controlled continue meds Hypercholesterolemia 136 33792 E78.2 check fasting Uncontroll ed type 2 diabetes mellitus 696675397 E11.65 see above Dysfunctio nal uterine bleeding 30762909 N93.8 recent uterine ablation, no bleeding, is considered post menopausal . [id number] Sendy Ulloa PA-C Main Office [address] [facility] [address] [place] [address] 11/28/2016 13:12:37 11/28/2016 14:17:41 Body mass index 25-29 - overweight 632586530 Z68.29 Continue working on increasing exercise and improving diet. Renal diso rder due to type 2 diabetes mellitus 195827615 E11.22 Diabetes well controlled with hgbA1c of [...] BP. Chronic ki dney disease stage 1 674975531 N18.1 Pt. is on Lisinopril and has stable glucose and BP. Overweight 535269789 E66 .3 [id number] Garrett wellington MD Main Office [address] [facility] [address] [place] [address] 01/23/2017 11:19:39 01/23/2017 12:09:14 Chronic kidney disease stage 1 617629809 N18.1 see above Renal diso rder due to type 2 diabetes mellitus 276615212 E11.22 see above Skin lesion 77426992 L98 .9 ? wart of left earlobe, new for 3 months, pt to see dermatolog y Hypertensi ve renal disease 40016265 I12.9 well controlled continue meds nd will refer to renal for creatinine slowly elevating (1.3) and 2 family members with renal failure. Discuss with renal if lisinopril still best med for pt and workup to rule out any familial renal disorder. [id number] Sendy Ulloa PA-C Main Office [address] [facility] [address] [place] [address] 03/27/2017 12:55:38 03/27/2017 14:23:59 Renal disorder due to type 2 diabetes mellitus 716568791 E11.22 Diabetes well controlled with hgA1c of [...] . Chronic ki dney disease stage 2 681788497 N18.2 repeat renal functions and microalbum in. BP is stable on Lisinopril . Body mass index 30+ - obesity 690174617 E66.01 Z68.30 BMI 30.4 encouraged lifestyle modificati on to include diet and exercise at least 45 mins x 3 -4 weekly [id number] Garrett wellington MD Main Office [address] [facility] [address] [facility] [place] [address] 07/31/2017 13:31:16 07/31/2017 14:19:54 Adult health examination 678047466 Z00.00 utd on mammogram and colonoscop y and pap, due for colonscopy next year, at 4 year jono not active, does not like exercise but is walking 4 times a week Chronic ki dney disease stage 2 293124248 N18.2 saw renal, they lowered her lisinopril and BP is well controlled . Personal h istory of primary malignant neoplasm of breast 189356925 Z85.3 mammogram once a year, utd Renal diso rder due to type 2 diabetes mellitus 298465599 E11.22 see above Essential hypertension 91949181 I10 well controlled continue meds Skin lesion 22619457 L98 .9 left earlobe, getting removed end of week [id number] Sendy Ulloa PA-C Main Office [address] [facility] [address] [facility] [address] 08/21/2017 10:45:49 08/21/2017 11:57:03 Renal disorder due to type 2 diabetes mellitus 763047048 E11.22 Continue Metfromin and TRulicity. Lower GLipizide ER to 10 mg daily to avoid random hypoglycem ia. Pt. is advised to lower total calories and continue daily exercise by walking at least 30 minutes. F/u in 3 m. Pt. was also encouraged to look into coverage for [employer] system for continuing monitoring . Chronic ki dney disease stage 2 509532756 N18.2 repeat renal functions and microalbum in as requested by renal. BP is stable on Lisinopril . Body mass index 30+ - obesity 367841360 E66.01 Z68.32 encouraged lifestyle modificati on to include diet and exercise at least 45 mins x 3 -4 weekly Hyperlipid emia screening 919401865 Z13.220 Hypoglycemia 797578175 E 16.2 Lower Glipizide ER to 5 mg 2 po qd. If any more hypoglycem ia, will continue lowering to 5 mg daily. [id number] Sendy Ulloa PA-C Main Office [address] [facility] [address] [place] [address] 12/18/2017 13:19:48 12/18/2017 14:12:24 Renal disorder due to type 2 diabetes mellitus 840997350 E11.22 Continue Metfromin 500 mg daily, lower GLipizide ER to 5 mg daily to avoid random hypoglycem ia. Continue Trulicity at 0.75 mcg dose weekly. Start Tradjenta 6 mg daily. Plan on decreasing or eliminatin g sulfontyur ea eventually to prevent hypoglycem ia. F/u 6-8 wks. Needs infl uenza immunization 157608179 Z23 Chronic ki dney disease stage 3 due to type 2 diabetes mellitus 5964602172 05 E11.22 N18.3 F/u with nephrologi st in May. Hypoglycemia 277207866 E 16.2 Lower Glipizide ER to 5 mg 1 po qd. If any more hypoglycem ia, will continue lowering to 2.5 mg daily. Body mass index 30+ - obesity 486657771 E66.01 Z68.33 encouraged lifestyle modificati on to include diet and exercise at least 45 mins x 3 -4 weekly [id number] Garrett wellington MD Main Office [address] [facility] [address] [place] [address] 01/29/2018 10:38:20 01/29/2018 11:48:00 Hypertensive renal disease 48827642 I12.9 followed by renal Chronic ki dney disease stage 2 298200879 N18.2 saw renal, they lowered her lisinopril and BP is well controlled . Personal h istory of primary malignant neoplasm of breast 031195670 Z85.3 mammogram once a year, utd Well contr olled type 2 diabetes mellitus 553164742 E11.9 last A1C is 7.2 . continue meds and f/u with sendy [id number] Garrett wellington MD Main Office [address] [facility] [address] [facility] [place] [address] 06/04/2018 13:53:49 06/04/2018 15:09:33 Chronic kidney disease stage 3 due to type 2 diabetes mellitus 9291002190 05 E11.22 N18.3 F/u with nephrologi st in May. Body mass index 25-29 - overweight 548667340 E66.3 Z68.29 Continue working on increasing exercise and improving diet. [id number] Seth Johnson MD Main Office [address] [facility] [address] [place] [address] 10/08/2018 09:50:07 10/08/2018 10:56:18 Renal disorder due to type 2 diabetes mellitus 779633570 E11.22 A1c is increased due to weight gain and changes in activity and diet. Pt. is encouraged to lose weight. Continue the same meds and testing. F/u 3 m. Chronic ki dney disease stage 2 949874950 N18.2 F/u with renal. Lisinopril was increased to 7.5 mg daily. Body mass index 30+ - obesity 856009610 Z68.31 encouraged lifestyle modificati on to include diet and exercise at least 45 mins x 3 -4 weekly Hyperlipidemia 14120187 E78.00 Administra tion of viral vaccine 57114908 Z23 Obesity 942678087 E66.9 [id number] Seth Johnson MD Main Office [address] [facility] [address] [place] [place] [address] 03/11/2019 10:15:27 03/11/2019 11:06:18 Renal disorder due to type 2 diabetes mellitus 680167497 E11.22 A1c is a bit above target. [...] m. Chronic ki dney disease stage 3 666580097 N18.3 continue ACEI. F/u with renal. Hyperlipidemia 36310382 E78.00 Follow low fat diet and repeat labs in 3 m. If LDL is still above 100, will add small dose of statin. [id number] Seth Johnson MD Main Office [address] [facility] [address] [place] [address] 03/26/2019 13:19:44 03/26/2019 14:18:18 Adult health examination 444224107 Z00.00 Pt. is recommende d to receive shingrix vaccine Chronic ki dney disease stage 3 due to type 2 diabetes mellitus 2777839337 05 E11.22 N18.3 Continue current meds. increase Trulicity to 1.5 mg weekly. F/u with nephrologi st at the end of March. Continue ACEI. F/u with nephrologi st as scheduled. repeat microalbum in. Hyperlipidemia 64629832 E78.00 Follow low fat diet. Lipid panel is within normal limits. Continue to monitor yearly. Hypertensi ve renal disease 32998310 I12.9 continue ACEI. BP is on target. Continue Lisinopril 5 mg PO daily. Obesity 332255682 E66.9 Continue low calorie/lo w carb diet. Increase exercise to 150 minutes per week. Personal h istory of primary malignant neoplasm of breast 531650907 Z85.3 Continue mammograms yearly and yearly TELEPHONE SURVEYOR visits. Body mass index 30+ - obesity 104668472 Z68.30 encouraged lifestyle modificati on to include diet and exercise at least 45 mins x 3 -4 weekly [id number] Seth Johnson MD Telehealt h [address] [facility] [address] [place] [address] 01/06/2020 08:04:18 01/07/2020 11:20:28 Renal disorder due to type 2 diabetes mellitus 753058947 E11.22 Extremely high blood sugars. Pt. is [...] . Chronic ki dney disease stage 3 194284873 N18.30 continue acei. f/u with renal. Hyperlipidemia 16913563 E78.00 Follow low fat diet. start atorvastat in 40 mg. Uncontroll ed type 2 diabetes mellitus 152619282 E11.65 Noncomplia nce with treatment 1470245 Z91.19 [id number] Seth Johnson MD Main Office [address] [facility] [address] [place] [address] 02/28/2020 13:39:51 02/28/2020 15:03:32 Renal disorder due to type 2 diabetes mellitus 398671060 E11.22 Uncontroll ed type II DM with CKD stg 3. Pt. did not start Lantus. Advised to start at 10 u and increase in 1 week to 15 if am fasting is not under 100. Continue all other antidiabet ics. F/u 6 weeks. Repeat BMP. Chronic ki dney disease stage 3 [id number] N18.30 continue acei. f/u with renal. Hypertensi ve renal disease 42071260 I12.9 stable control. [id number] Justo Medeiros MD Main Office [address] [facility] [address] [place] [address] 10/19/2020 14:58:45 10/19/2020 16:09:34 Adult health examination 929396278 Z00.00 Pt. is recommende d to receive shingrix vaccine, had covid vaccine, tdap up to date. Pt sees dentist and eye doctor. She needs to see manager drug safety for pap and breast exam. Colonoscop y 2017 due 2022 Chronic ki dney disease stage 3 due to type 2 diabetes mellitus 5820542424 05 E11.22 Pt under care of , had eye exam 06/07, ? sees nephrologi st Had proteinuri a and elevated hgba1c of 13.5 last visit. Will recheck labs today as visit with is virtual. Given results, needs to discuss insulin with this week. Hypertensi ve renal disease 67839495 I12.9 continue ACEI. BP is on target. Continue Lisinopril 5 mg BID PO daily. Hyperlipidemia 90389068 E78.00 Follow low fat diet. Lipids: LDL 147 has diabetes. Will restart now every other day Body mass index 30+ - obesity 899435079 Z68.30 encouraged lifestyle modificati on to include diet and exercise at least 45 mins x 3 -4 weekly Personal h istory of primary malignant neoplasm of breast 922104670 Z85.3 Continue mammograms yearly and yearly TELEPHONE SURVEYOR visits., breast exam normal Screening for malignant neoplasm of breast 612640148 Z12.39 Screening for malignant neoplasm of cervix 542152093 Z12.4 Varicella vaccination 68 992577 Z23 Chronic ki dney disease stage 3 223778480 N18.32 Obesity 754289730 E66.9 [id number] Sendy Ulloa PA-C Main Office [address] [facility] [address] [place] [address] 10/23/2020 09:03:22 10/23/2020 11:34:13 Renal disorder due to type 2 diabetes mellitus 590752393 E11.22 Uncontroll ed type II DM with [...] visit. Chronic ki dney disease stage 3B 812309653 N18.32 F/u with Dr. Coelho as scheduled. [id number] Garrett wellington MD Main Office [address] [facility] [address] [place] [address] 04/08/2022 12:47:07 04/08/2022 13:33:39 Chronic kidney disease stage 3B 444607835 N18.32 Hyperlipidemia 08790884 E78.00 Hypertensi ve renal disease 30095781 I12.9 followed by renal, recent treatment with diuretics Personal h istory of primary malignant neoplasm of breast 272112026 Z85.3 mammogram once a year, utd Adult heal th examination 728302251 Z00.00 utd on mammogram as per pt due for colonscopy at end of 2022 at 4 year jono not active, does not like exercise but is walking 4 times a week Renal diso rder due to type 2 diabetes mellitus 765040453 E11.22 followup with renal [id number] Stefany Martinez MD Main Office [address] [facility] [address] [place] [address] 04/22/2022 09:30:24 04/22/2022 10:34:44 Chronic kidney disease stage 3B 935462779 N18.32 F/u with Dr. Coelho as scheduled. Hypertensi ve renal disease 97989492 I12.9 f/u with renal ,lisinopri l was just increased by Meliton HAMMONDS. Pt. will continue home monitoring . Renal diso rder due to type 2 diabetes mellitus 442729605 E11.29 Uncontroll ed type II DM with [...] well prior to visit. Mixed hyperlipidemia 267 822564 E78.2 Begin taking rosuvastat in 20 mg and repeat fasting lipids in 6 weeks. 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 Refer for same day urgent ophthalmol ogryan carr. Consider brain MRA or CT. [id number] Stefany Martinez MD Main Office [address] [facility] [address] [place] [address] 06/17/2022 10:50:21 06/17/2022 11:38:59 Renal disorder due to type 2 diabetes mellitus 454032734 E11.22 Uncontroll ed type II DM with [...] weeks. Chronic ki dney disease stage 3B 880051726 N18.32 Pt. is on Lisinopril and has stable glucose and BP. [id number] Stefany Martinez MD Main Office [address] [place] [address] 07/22/2022 12:47:40 07/22/2022 13:51:56 Renal disorder due to type 2 diabetes mellitus 915856895 E11.22 Uncontroll ed type II DM with [...] visit. Chronic ki dney disease stage 3B 444167139 N18.32 Pt. is on Lisinopril and has stable glucose and BP. Long-term current use of insulin 694655762 Z79.4 [id number] MADELINE MESSER MD Main Office [address] [place] [address] 08/05/2022 12:49:11 08/05/2022 13:34:15 Hypertensive renal disease 59501441 I12.9 - BP today 125/76- c/w lisinopril [...] vision. Chronic ki dney disease stage 3B 221481775 N18.32 - creatine is 1.4 and GFR is 42- pt was last following with renal regularly Mixed hyperlipidemia 267 662069 E78.2 - at goal- currently on ASA and rosuvastat in 20mg QD- most recent lipid panel done on 06/09: cholestero l-115, triglyceri navede-133, HDL-48, LDL-40 Pt counselled on:- Eat a [...] levels.- Eat more fruits and veggies. Hyperkalemia 18228945 E8 7.5 - on most recent CMP 06/09 it was noted that K+ was higher than usual at 5.7- EKG performed: NSR no hyperkalem ic changes noted- repeat CMP ordered to check levels, if still elevated will send pt kaycelate Renal diso rder due to type 2 diabetes mellitus 644846194 E11.21 - resent to pharmacy- performed diabetic foot exam on 08/05 Pain of mu ltiple joints 29364104 M25.50 - pt complainin g of joint pain: shoulders, back and knees- will check inflammato ry markers with ESR and CRP- will also ensure no underlying rheumatic disorders [id number] MADELINE MESSER MD Main Office [address] [place] [address] 11/04/2022 10:32:39 11/04/2022 11:02:52 Hypertensive renal disease 57412343 I12.9 - at goal- BP today 125/74- [...] vision. Chronic ki dney disease stage 3B 315647629 N18.32 - creatine is 1.4 and GFR is 42- pt was last following with renal regularly, will see next week Hyperkalemia 73745462 E8 7.5 - most recent potassium levels was 6.3 and on 5.9 on repeat- pt was given treatment (sodium polystyren e)- ordered repeat check for today to ensure WNL or reduced- pt may need to be placed on [facility] [id number] Stefany Martinez MD Main Office [address] [facility] [address] [facility] [place] [address] 01/24/2023 09:34:55 01/24/2023 09:48:37 [id number] MADELINE MESSER MD Main Office [address] [facility] [address] [facility] [place] [address] 02/10/2023 11:08:08 02/10/2023 11:59:36 Hypertensive renal disease 04066670 I12.9 - BP elevated today as patient [...] vision. Chronic ki dney disease stage 3B 540814445 N18.32 - creatine is 1.7 and GFR is 33- pt was last following with renal regularly, was seen on 11/22/22> nephrology wanted to start patient on farxiga however medication denied by insurance (per patient)- ordered repeat bmp to [facility] on potassium and kidney function Hyperkalemia 13127551 E8 7.5 - most recent potassium levels was 5.5- pt may need to be placed on lokelma Long-term current use of insulin 007467440 Z79.4 Renal diso rder due to type 2 diabetes mellitus 582536375 E11.21 - worsening, HbA1c today is 14.4 [...] RTC in 4 week for follow-up with [id number] Stefany Martinez MD Main Office [address] [address] [place] [address] 02/21/2023 10:03:18 02/21/2023 10:07:42 [id number] Stefany Martinez MD Main Office [address] [address] [place] [address] 04/14/2023 09:55:47 04/14/2023 10:41:16 Renal disorder due to type 2 diabetes mellitus 753028058 E11.22 Uncontroll ed type II DM with [...] carbs. Chronic ki dney disease stage 3B 501255384 N18.32 continue acei. jardiance was not approved for use by the insurance. F/u with renal. [id number] Stefany Martinez MD Main Office [address] [address] [place] [address] 04/17/2023 09:03:30 04/17/2023 09:07:03 [id number] MADELINE MESSER MD Main Office [address] [address] [place] [address] 05/12/2023 10:35:20 05/12/2023 11:00:21 Hypertensive renal disease 35564794 I12.9 - BP elevated today as patient [...] ankles.>Milligan ve trouble with your vision. 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 - type 4- lisinopril is currently on hold- pt continues to follow with renal- taking sodium bicard 650mg weekly as well -> given by nephrology - will need a renal biopsy [id number] Sendy Ulloa PA-C Main Office [address] [address] [place] [address] 05/19/2023 08:32:09 05/19/2023 08:36:27 [id number] MADELINE MESSER MD Main Office [address] [address] [place] [address] 06/19/2023 08:31:01 06/19/2023 08:34:35 [id number] MADELINE MESSER MD Main Office [address] [address] [place] [address] 06/23/2023 09:16:08 06/23/2023 09:58:02 Chronic kidney disease stage 3B 362633337 N18.32 continue acei. jardiance was not approved for use by the insurance. F/u with renal. Renal diso rder due to type 2 diabetes mellitus 702836651 E11.21 Uncontroll ed type II DM with [...] 4-6 weeks. Long-term current use of insulin 429887414 Z79.4 hypoglycem ia management reviewed with pt. Glucagon kit forwarded to pharmacy. Hypertensi ve renal disease 15430582 I12.9 f/u with renal next week. {T. was encourage to test blood pressure daily at home until her visit with renal. [id number] Stefany Martinez MD Main Office [address] [place] [address] [place] [address] 07/18/2023 09:53:54 07/18/2023 09:58:45 [id number] Justo Medeiros MD Main Office [address] [place] [address] [place] [address] 08/18/2023 10:08:14 08/18/2023 10:14:26 [id number] Justo Medeiros MD Main Office [address] [place] [address] [place] [address] 09/01/2023 14:42:32 09/01/2023 15:11:08 Renal disorder due to type 2 diabetes mellitus 287369706 E11.21 Uncontroll ed type II DM with [...] weeks. Chronic ki dney disease stage 3B 606730119 N18.32 continue acei. jardiance was not approved for use by the insurance. F/u with renal. [id number] Justo Medeiros MD Main Office [address] [address] [place] [address] 09/19/2023 09:23:42 09/19/2023 09:31:17 [id number] Justo Medeiros MD Telehealt [facility] [address] [address] [place] [address] 10/09/2023 14:26:32 10/09/2023 15:38:12 Renal disorder due to type 2 diabetes mellitus 585964924 E11.21 Uncontroll ed type II DM with CKD stg 3b and renal disease progressio n. CGM data reviewed with pt , another upload will be done on 10/23/23. Pt. is having big glucose fluctuatin g from hyperglyce gearrdo post meals to hypoglycem ia at night, [...] weekly. Chronic ki dney disease stage 3B 467307329 N18.32 continue acei. jardiance was not approved for use by the insurance. F/u with renal. [id number] Justo Medeiros MD Main Office [address] [address] [place] [address] 10/23/2023 09:49:23 10/23/2023 10:02:03 [id number] MADELINE MESSER MD Main Office [address] [address] [place] [address] 10/27/2023 09:07:45 10/27/2023 09:33:51 Renal disorder due to type 2 diabetes mellitus 844932346 E11.21 - not well controlled - HbA1c is 8.9- c/w insulin lispro 30 units- pt has not yet gotten mounjaro and as not started medication , will check if insurance approved it Long-term current use of insulin 611479619 Z79.4 Hypertensi ve renal disease 12003464 I12.9 - at goal- BP today 152/84 [...] vision. Chronic ki dney disease stage 4 348846171 N18.4 - creatine is 1.79 and GFR is 31 done on 06/19/2023- pt was last following with renal regularly, was seen on 06/2023- pt advised to hold all NSAIDS, avoid nephrotoxi c drugs and stay hydrated Hyperkalemia 76967727 E8 7.5 - most recent potassium levels was 5.4 on 03/21- lokelma was not approved by insurance- pt is currently taking kaycelate weekly Renal tubu lar acidosis 3863107 N25.89 - type 4- lisinopril is currently on hold- pt continues to follow with renal- taking sodium bicard 650mg weekly as well -> given by nephrology - will need a renal biopsy [id number] MADELINE MESSER MD Main Office [address] [facility] [address] [facility] [address] 11/10/2023 14:23:31 11/10/2023 16:01:28 Chronic mastoiditis 46024471 H70.11 - MRI of the brain done [...] follow-up- will repeat imaging in 3 months [id number] Justo Medeiros MD Main Office [address] [facility] [address] [place] [address] 02/06/2024 11:57:30 02/06/2024 11:59:32 [id number] MADELINE MESSER MD Main Office [address] [facility] [address] [place] [address] 04/26/2024 09:43:41 04/26/2024 10:19:39 Chronic kidney disease stage 3B 379403266 N18.32 - creatine is 1.94 and GFR is 28- pt was last following with renal regularly, was seen on 01/26/2024> nephrology wanted to start patient on farxiga however medication denied by insurance (per patient)- ordered BMP Hyperkalemia 93498710 E8 7.5 - most recent potassium levels was 5.7 on 01/23/2024- lokelma was not approved by insurance- pt is currently taking kaycelate weekly Hypertensi ve renal disease 12818297 I12.9 - elevated- BP today 148/83> patient [...] trouble with your vision. Mixed hyperlipidemia 267 730095 E78.2 - at goal- currently on ASA [...] and veggies. Long-term current use of insulin 752403309 Z79.4 Gastroesop hageal reflux disease 620333882 K21.00 - worsened after starting mounjaro- pt provided wtih famotidine 20mg as needed The following lifestyle changes are recommende d and counseled : -Losing weight: Losing weight helps people who are overweight to reduce acid reflux. -Raising the head of your bed six to eight inches -Avoiding foods that trigger symptoms Avoid excessive caffeine, chocolate, alcohol, peppermint , and fatty foods. Renal diso rder due to type 2 diabetes mellitus 881638825 E11.21 - not well controlled , worsened- HbA1c is 12.1- c/w insulin lispro 8 units BID- c/w tresiba 10 units nightly- c/w Mounjaro 5mg SQ weekly- pt follows with diabetic specialist in the clinic- diabetic eye exam: 10/23/2023 -> positive Fatigue 54264162 R53.83 Z00.00 Hyperlipidemia 66051412 E78.5 Z00.00 FASTING [id number] Justo Medeiros MD Main Office [address] [address] 09/27/2024 13:48:40 09/27/2024 14:26:40 Renal disorder due to type 2 diabetes mellitus 527852723 E11.21 A1c went down today to 6.1% from 12.1% last January. Rec to stop pre-prandi al insulin but continue Mounjaro 5mg injection weekly. Encouraged to increase hydration. Restart famotidine for GERD. F/u with renal this afternoon. Labs reviewed with pt. Gastroesop hageal reflux disease without esophagitis 489201227 K21.9 [id number] Rec to continue taking famotidine daily for acid reflux - likely from mounjaro. Chronic ki dney disease stage 3B 800760991 N18.32 Pt has an appt with renal this afternoon. [id number] MADELINE MESSER MD Main Office [address] [address] 11/08/2024 12:43:52 11/08/2024 13:25:05 Chronic kidney disease stage 3B 542977050 N18.32 - creatine is 1.88 and GFR is 29- pt was last following with renal regularly, was seen on 09/27/2024> nephrology wanted to start patient on farxiga however medication denied by insurance (per patient)- NaHCO3 twice a day Hyperkalemia 00644897 E8 7.5 - most recent potassium levels was 5.6 on 09/24/2024- lokelma was not approved by insurance- pt is currently taking kaycelate 3x a week Hypertensi ve renal disease 15585329 I12.9 - at goal- BP today 137/77> patient has not taking her PO medication this morning therefore expected to have elevated blood pressure- was previously on lisinopril but medication stopped by nephrologi st due to hyperkalem ia and renal tubular acidosis- pt no longer on amlodipine 10mg- RTC in 6 months [...] trouble with your vision. Mixed hyperlipidemia 267 211149 E78.2 - elevated- currently rosuvastat in 20mg QD-restart ed- can hold ASA due to GERD- most recent lipid panel done on 09/2024: cholestero l-260, triglyceri naveed-158, HDL-46, LDL-185 Pt counselled on:- Eat a heart-heal thy [...] l levels.- Eat more fruits and veggies. Gastroesop hageal reflux disease 474371163 K21.00 - worsened after starting mounjaro- pt provided with famotidine 20mg as needed The following lifestyle changes are recommende d and counseled :-Losing weight: Losing weight helps people who are overweight to reduce acid reflux.-Ra ising the head of your bed six to eight inches-Jameel iding foods that trigger symptoms Avoid excessive caffeine, chocolate, alcohol, peppermint , and fatty foods. Renal diso rder due to type 2 diabetes mellitus 493131853 E11.21 - improved- HbA1c is 6.1 (was 12.1)- no longer on meal time insulin or evening insulin- c/w Mounjaro 5mg SQ weekly- pt follows with diabetic specialist in the clinic- diabetic eye exam: 10/23/2023 -> positive Long-term current use of insulin 147667976 Z79.4 General ex amination of patient 582111082 Z00.00 [id number] [facility] Patient was counseled on healthy diet, exercise and nutrition due to BMI of 23.3 B) ScreeningL ast Mammogram: start at age 50 stop at 74Date: 10/12/2024 (on PVIX)Resul t: BIRADS-1Ne xt: 09/2025 Last Pap smear: start at age 21 to age 65Date: 08/06/2018R esults: HPV negative, no atypical cellsNext: has an appoitment in the fall Last Colonoscop y: start at age 45-75Date: 12/26/2017 Result: internal hemorrhoid s, diverticul itisNext: DUE Last DEXA scan:Date: due at 64Result: ??? C) Vaccines:I nfluenza: 01/11/2024 TdAP: 10/08/2018P PV23: 07/20/2015Zo ster: ordered, not performed, remindedPC V20: orderedCOV ID: 07/16/2020, 08/07/2020, 03/25/2021, 08/14/2021, 02/17/2022 D) Routine blood work and STI screening orderedE) Updated patient's history RTC in one year for annual exam or sooner if any acute complaints Screening for malignant neoplasm of colon 239723502 Z12.11 Administra tion of pneumococcal vaccine 90661260 Z23 Health Concerns Section Related Observation LastModified by Organization Detai ls LastModified Time None Recorded Concern Status LastModified by Organization Details LastModified Time None Recorded Advance Directives Directive N: Payers Insurance Date Sequence Insurance Name Policy Number Policy Wooten Covered Member ID Wooten Member ID Guarantor Name 01/14/2025 1 [facility] [id number] Annabella Ramirez [id number] Annabella Ramirez 09/27/2024 1 [place] [id number] Annabella Ramirez [id number] Annabella Ramirez 09/27/2024 2 [place] Annabella Ramirez [id number] Annabella Ramirez 07/31/2017 2 [facility] [id number] Mateusz Pham [id number] Annabella Ramirez 09/27/2024 1 [place] [id number] Annabella Ramirez [id number] Annabella Ramirez 09/27/2024 1 [place] [id number] Annabella Ramirez [id number] Annabella Ramirez 10/08/2018 2 [facility] [id number] Mateusz Pham [id number] Annabella Ramirez 09/27/2024 1 [place] [id number] Annabella Ramirez [id number] Annabella Ramirez Notes Date Note Type Note Provider Name and Address Organization Details Recorded Time 4 text/html Annabella Ramirez is a 62 year old F who was seen over TH for discussion of recent MRI brain findings ordered by her asbestos cement sheet supervisor. Pt mentioned to MD that the imaging was ordered to ensure there no underlying brain mass or opthalmologic problem. On the scan it was noted there was mastoiditis which the asbestos cement sheet supervisor left for PCP to address. Pt is currently asymptomatic, has no complaints. MADELINE MESSER MD [address] [address], [place], [address], [facility] 11/10/2023 16:22:56 5 text/html Hypertension F/UReported by PatientPatient here for follow-up of elevated blood pressure. Pt is not exercising and is not adherent to a low-salt diet. Blood pressure is not checked at home. Cardiac symptoms: none. Patient denies: chest pain, heart palpitations, headaches, lower extremity edema, dizziness. Cardiovascular risk factors: HLD, obesity, DM. Use of agents associated with hypertension: none. History of target organ damage: yes (CKD). GERD RefluxReported by PatientHPIFor symptoms, patient reportspostprandial pain. For quality, patient reportsburning. For severity, patient reportsworsening. For aggravating factors, patient reportsworsened by food. For associated symptoms, patient reportsregurgitationbut reportsno frequent coughing,no feeling of fullness/mass in throat,no hoarseness,no food getting stuck,no belching/burping,no nausea,no vomiting,not vomiting blood,no shortness of breath,no chest pain,no heartburn,no difficulty swallowing,no pain when swallowing,no bad taste,no decreased appetite,no weight loss,no black/tarry stools,no fatigue, andno throat pain. For duration, patient reportspresent for 1-6 months. For onset/timing, patient reportsoccurs at night/while sleepingandoccurs immediately after meals. For context, patient reportsnon-smoker,no drug/alcohol abuse,no drug alcohol withdrawal, andnot related to food/drink. Annabella Ramirez is a 63 year old F who presented to the clinic for follow-up on her chronic conditions. 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 Patient is following with our clinical pharmacy coordinator for diabetes. Patient has been having a hard time getting GLP-1s approved by insurance. Has now been able to start Mounjaro. MADELINE MESSER MD [address], [address], [facility] 04/26/2024 10:40:45 5 text/html Hypertension F/UReported by PatientPatient here for follow-up of elevated blood pressure. Pt is not exercising and is not adherent to a low-salt diet. Blood pressure is not checked at home. Cardiac symptoms: none. Patient denies: chest pain, heart palpitations, headaches, lower extremity edema, dizziness. Cardiovascular risk factors: HLD, obesity, DM. Use of agents associated with hypertension: none. History of target organ damage: yes (CKD). GERD RefluxReported by PatientHPIFor symptoms, patient reportspostprandial pain. For quality, patient reportsburning. For severity, patient reportsworsening. For aggravating factors, patient reportsworsened by food. For associated symptoms, patient reportsregurgitationbut reportsno frequent coughing,no feeling of fullness/mass in throat,no hoarseness,no food getting stuck,no belching/burping,no nausea,no vomiting,not vomiting blood,no shortness of breath,no chest pain,no heartburn,no difficulty swallowing,no pain when swallowing,no bad taste,no decreased appetite,no weight loss,no black/tarry stools,no fatigue, andno throat pain. For duration, patient reportspresent for 1-6 months. For onset/timing, patient reportsoccurs at night/while sleepingandoccurs immediately after meals. For context, patient reportsnon-smoker,no drug/alcohol abuse,no drug alcohol withdrawal, andnot related to food/drink. Diabetes F/UReported by PatientHPIFor context, patient reportsside effects from medicationsbut reportsnormal range of home blood sugars (in the low 100s),seeing eye doctor regularly, andchecking feet regularly(reports heart burn, not taking femotidine regularly.). For associated symptoms, patient reportsweight loss (20 lbs)anddizziness.A1c is 6.1%.Meds: Mounjaro 5 mg weekly. pre meal insulin 5-8 u . Pt is not testing glucose. Had CGM before. Not doing fingerstick testing.CKD stg 3B. Creat 1.88 , GFR 28 ,slightly higher than last one. Pt reports not hydrating enough. Sees renal for f/u this afternoon. Sendy Ulloa PA-C [address] [facility] [address], [place], [address], [facility] 09/27/2024 14:40:50 5 text/html Medicare Annual Wellness VisitReported by PatientSocial/Behavioral HistoryFor physical activity, patient reportsdoes not exercise on a regular basis,decreased physical activity, andpoor physical condition. For diet and nutrition, patient reportshealthy dietanddiscussed vitamin and supplement use. For fracture risk, patient reportsno recent explained fracture.Mental Status:For depression risk, patient reportsno history of depressionandno history of mood disorders. For orientation, patient reportsno disorientation to time,no disorientation to date, andno disorientation to place. For concentration and memory, patient reportsno decreased concentrating ability,no memory lapses or loss, anddoes not forget words. For speech/motor difficulties, patient reportsno speech difficulties,no difficulty expressing formulated concepts,no difficulty with fine manipulative tasks,no difficulty writing/copying,no slowed reaction time, anddoes not knock things over when trying to pick them up.Functional AbilityFor vision, patient reportsworsening. For home safety, patient reportsdoes not have hand bars in the bathroom/shower. For hearing, patient reportsno loss of hearing. For activities of daily living, patient reportsable to bathe with limited or no assistance,able to contol urination and bowels,able to dress with limited or no assistance,able to feed self with limited or no assistance,able to get out of chair or bed with limited or no assistance,able to groom with limited or no assistance, andable to toilet with limited or no assistance. For instrumental activities of daily living, patient reportsable to do house work with limited or no assistance,able to grocery shop with limited or no assistance,able to manage medications with limited or no assistance,able to manage money with limited or no assistance,able to prepare meals with limited or no assistance, andable to use the phone with limited or no assistance. For falls risk assessment, patient reportsno fall in the past year. Medicare visitAnnabella Ramirez is a 63 year old who presents to complete their Annual Wellness Visit. Visit Type: Annual How would you rate your health? Fair Have you been discharged from the hospital recently? NoHave you been to the emergency room or urgent care recently? NoDo you have any significant previous hospital stays, injuries, or treatment? No Home Safety:Is the tub or shower floor slippery and do you need support? NoDo you need some support when you get in and out of the tub or from the toilet? No, patient was counseled to install study grab bars in the showerDo you have any small rugs or runners that slide or bunch up when you push them with your foot? NoAre there papers, books, towels, shoes, magazines, boxes, blankets, or other objects on the floor? No The patient does have a history of falls. Oral Health: every 6 monthsEye Healthy: every 6 weeks -> getting shotsMotor Vehicle: drives Screening Tools:Were there any ADL or IADL deficiencies not linked to physical limitations? NoDuring the past 12 months, have you experienced confusion or memory loss that is happening more often or is getting worse? No Advance Directive: none on file MADELINE MESSER MD [address] [address], [place], [address], [facility] 11/08/2024 13:24:55 OBGyn Episode No OBEpisode recorded.
--- OUTSIDE RECORDS SUMMARY | 2025-02-21 19:17 | XMS_ITS | Data Portability ---
Author Organization [place] - [facility], Allergy Address [address] [place] [id number] Assessment Encounter Date Assessment Date Assessment LastModified by Organization Details LastModified Time 05/30/2024 05/30/2024 Right mastoid effusion noted incidentally 10/2023 on MRI. her exam today is benign with no effusion of middle ear and no tenderness of mastoid. No intervention is needed. [email or web address] Not available 05/30/2024 11:18:26 Plan of Treatment Reminders Order Date Submit Date Provider Last Modified By Organization Details Last Modified Time Details Appointments None record ed. Lab None record ed. Referral None record ed. Procedures None record ed. Surgeries None record ed. Imaging None record ed. Medication Orders None record ed. Patient TargetsNo targets recorded. Patient InstructionsNo instructions recorded. Reason for Referral None Reported. Problems Name Problem SNOMED Code Status Onset Date Resolution Date Notes Provider Name and Address Organization Details Recorded Time Acute right mastoiditis 0821778570949 101 Active 2024 PA LIM MD [address] [place] [address], [phone] [place] [address] - [facility] 11:17:44 Problem Notes None recorded. Medical Equipment None Reported. Allergies Allergen ID Allergen Name Allergen Category Reaction Reaction Severity Criticality Documentation Date Start Date Code Code System Note Provider Name and Address Organization Details Recorded Time [id number] Substance with sulfonami de structure and antibacte rial mechanism of action (substanc e) medicatio n Not available Not available Not available 05/30/2024 30035 8003 SNOMED CHRISTELLE PASHA reilly [place] - [facility] 5 11:08:11 [id number] amoxicill in medicatio n Not available Not available Not available 05/30/2024 723 RxNorm CHRISTELLE reilly [place] - [facility] 11:08:19 Medications Name Sig Start Date Stop Date Status Note LastModified by Organization Details LastModified Time amlodipine 5 mg tablet TAKE 1 TABLET BY MOUTH EVERY DAY active Not Available Not Available No t Available famotidine 20 mg tablet TAKE 1 TABLET EVERY DAY BY ORAL ROUTE FOR 30 DAYS, FOR GERD. active Not Available Not Available No t Available sodium bicarbonate 650 mg tablet TAKE 1 TAB ORALLY DAILY FOR 30 DAYS active Not Available Not Available No t Available sodium polystyrene sulfonate 15 gram oral powder USE 30 GRAMS( 2 BOTTLES) 8 LEVEL TEASPOONS ORALLY ONCE A WEEK active Not Available Not Available No t Available glipizide 5 mg tablet TAKE 1 TABLET BY MOUTH EVERY DAY active Not Available Not Available No t Available insulin lispro (U-100) 100 unit/mL subcutaneou s pen INJECT 8 UNITS TWICE A DAY BY SUBCUTANE OUS ROUTE BEFORE MEALS FOR 60 DAYS. active Not Available Not Available No t Available rosuvastati n 20 mg tablet TAKE 1 TABLET BY MOUTH EVERY DAY active Not Available Not Available No t Available ciprofloxac in 0.2 % ear drops in a dropperette INSTILL 0.25 ML TO AFFECTED EAR EVERY 12 HOURS FOR 14 DAYS 05/30 completed Not Available Not Available Not Available Tresiba FlexTouch U-200 insulin 200 unit/mL (3 mL) subcutaneou s pen ADMINISTE R 15 UNITS UNDER THE SKIN EVERY DAY IN THE EVENING. active Not Available Not Available No t Available Mounjaro 5 mg/0.5 mL subcutaneou s pen injector ADMINISTE R 5MG UNDER THE SKIN WEEKLY active Not Available Not Available No t Available Mounjaro 2.5 mg/0.5 mL subcutaneou s pen injector ADMINISTE R 2.5 MG UNDER THE SKIN EVERY WEEK active Not Available Not Available No t Available FreeStyle Baldo 3 Sensor device USE ONE SENSOR EVERY 14 DAY DIRECTED active Not Available Not Available No t Available Vitals Date Recorded Body height Body mass index (BMI) Body weight Provider Name and Address Organization Details Last Updated DateTime 05/30/2024 154.94 cm 26.6 kg/m2 17172.52 g CHRISTELLE COMI [place] - [facility] 05/30/2024 11:08:57 Social History None recorded. Functional Status None recorded. Mental Status None recorded. Family History Nothing Reported. Medical History No medical history recorded. Gynecological HistoryNo gynecological history recorded. Obstetrics History GPAL:G 0 P 0 0 0 0 Past Encounters Encounter ID Performer Location Encounter Start Date Encounter Closed Date Diagnosis/Indication Diagnosis SNOMED-CT Code Diagnosis ICD10 Code Diagnosis IMO Codes Diagnosis Note [id number] PA LIM MD [facility] [address] [phone] 05/30/2024 10:30:48 05/30/2024 11:18:06 Acute right mastoiditis [id number] 898836 H70.001 Health Concerns Section Related Observation LastModified by Organization Detai ls LastModified Time None Recorded Concern Status LastModified by Organization Details LastModified Time None Recorded Advance Directives Directive None Recorded Payers Insurance Date Sequence Insurance Name Policy Number Policy Wooten Covered Member ID Wooten Member ID Guarantor Name 05/30/2024 1 [employer] [facility] [id number] Annabella Ramirez [id number] Annabella Ramirez 05/30/2024 1 [facility] Annabella Ramirez [id number] Annabella Ramirez 07/29/2024 2 [facility] [id number] Annabella Ramirez [id number] RA Annabella Ramirez 07/29/2024 1 [facility] [id number] Annabella Ramirez [id number] Annabella Ramirez Notes Date Note Type Note Provider Name and Address Organization Details Recorded Time text/html ROS as noted in the HPI right mastoid effusionophthalmology ordered imaging for left eye palsyno otologic sxfeels her hearing is normal 11/03/2023 MRI brain w/wo con, MR Orbit w/wo con Rayusright mastoid effusion PA LIM MD [address] [place] [address],[address] [address], [place], [phone], [place] - [facility] 05/30/2024 11:18:39 OBGyn Episode No OBEpisode recorded.
== END 2025-02-21 16:18 | disposition home or self-care (01) ==
LOC: HO.HKA 15:19
PROVIDERS: PCP Student in an Organized Health Care Education/Training Program; Visit Provider Internal Medicine Nephrology
DX: I10 Essential (primary) hypertension (principal); E11.22 Type 2 diabetes mellitus with diabetic chronic kidney disease; N18.30 Chronic kidney disease, stage 3 unspecified
CPT/HCPCS: 99214